=== PATIENT | female | born 1935 | race Caucasian/White ===

== ENCOUNTER 2018-01-25 23:09 | Inpatient (IN) ==
[2018-01-25] MEDS ORDERED: NALOXONE HCL 0.4 MG/ML VIAL IV PRN (23:17)
[2018-01-25] MEDS ORDERED: oxyCODONE HCL 5 MG TABLET PO PRN (23:17)
[2018-01-25] MEDS ORDERED: ONDANSETRON 4 MG/2 ML VIAL IV PRN (23:17)
[2018-01-25] MEDS ORDERED: DEXTROSE 50% 50 ML VIAL IV PRN (23:21)
[2018-01-25] MEDS ORDERED: 0.9 % SODIUM CHLORIDE 1,000 ML IV SCH (23:30)
[2018-01-26] MEDS: HEPARIN 5,000 UNIT/ML VIAL SQ SCH ×3 (00:30→22:30)
[2018-01-26] MEDS: INSULIN LISPRO 1 UNIT/0.01 ML UNIT SQ SCH ×5 (00:30→21:20)
--- NOTE | 2018-01-26 00:36 | Internal Med History&Physical ---
Medical - H&P: HPI Patient information: Note initiated : 01/26/18 at 12:27 am Service Date, if different from initiated Date: [] Patient: Judit Shankar 82 y/o F admitted on 01/25/18 for Fx. Lt hip. Chief Complaint: [] History of present illness: Ms. Shankar is a 82 year old F with history of diabetes, chronic kidney disease stage IV, Parkinson's disease presents to the hospital from [facility] for a mechanical fall. The patient tried to get up out of the chair, noted that the left leg was weak and fell on the left side. She sustained a hip fracture on the left femur. The patient was transported to [facility] for admission and further management. Since his hospital did not have a medical bed. The patient in the hospital accompanied by her . We'll verify the patient's history. The patient denies any chest pain, no palpitations no dizziness before the fall. She denies any fever or chills or urinary symptoms. The patient denies any acute headache, new changes in vision or difficulty in swallowing, changes in hearing, no shortness of breath, no nausea no vomiting no abdominal pain or diarrhea no constipation. She has chronic joint pains from arthritis, no new joint swellings or skin rashes. She denies any psychiatric problems. She does have a history of Parkinson's disease. The patient has a history of diabetes, chronic kidney disease stage IV, she denies any history of heart failure or myocardial infarction, she denies any history of strokes or TIAs (however past medical history in the chart shows that she may have had a stroke) . The patient has poor activity level secondary to arthritis and Parkinson's disease, met score would be around 1-2. the patient will be high risk for surgery, given her poor activity level as well as advanced chronic kidney disease and diabetes. This was reviewed with the patient and her . The patient has not had any lab work done EKG x-ray yet these will be ordered. And reviewed All systems: reviewed and no additional remarkable complaints except as stated ( as per HPI) Medical - H&P: PMH Medical history: Medical History (Last Updated 10/07/17 @ 12:14 by Jie Rodney) Renal stones (Chronic) History of modified radical mastectomy of right breast (Chronic) Left carotid bruit (Chronic) Heart murmur, systolic (Chronic) Osteoarthrosis, generalized, involving multiple sites (Chronic) Claudication (Chronic) Unsteady gait (Chronic) Myalgia (Chronic) Spinal stenosis (Chronic) Adenocarcinoma, breast (Chronic) Osteoporosis (Chronic) Personal history of malignant neoplasm of breast (Chronic) CKD (chronic kidney disease), stage IV (Chronic) 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) Long-term use of aspirin therapy (Chronic) Atypical chest pain (Chronic) Stroke (Chronic) Memory loss (Chronic) Pure hypercholesterolemia, unspecified (Chronic) Primary hyperparathyroidism (Chronic) Parkinson disease (Chronic) Hypothyroidism, iodine (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) Headache (Chronic) ESR raised (Chronic) Hypertensive chronic kidney disease with stage 1 through stage 4 chronic kidney disease, or unspecified chronic kidney disease (Chronic) Surgical history: Past Surgical History (Last Updated 10/07/17 @ 12:14 by Jie Rodney) History of aortic valve replacement (Chronic ~01/2009) History of cholecystectomy (Chronic) History of colonoscopy (Chronic 07/13/13) History of hysterectomy (Chronic) History of left breast biopsy (Chronic) Pertinent family history: Family History (Last Updated 10/07/17 @ 12:20 by Jie Rodney) Mother Heart disease Social history: , lives with her , denies any history of alcohol use denies any history of alcohol or decreased substance use Medical - H&P: Meds Home Medications Medication Instructions Recorded Confirmed Type [employer] Microlet Lancets .ROUTE 10/07/17 10/07/17 History alendronate 70 mg tablet 70 mg PO QWEEK 10/07/17 10/07/17 History aspirin 81 mg tablet,delayed 81 mg PO QDAY 10/07/17 10/07/17 History release blood sugar diagnostic strips See Dose Instructions .ROUTE 10/07/17 10/07/17 History .MEDSUPPLY #20 each carbidopa 25 mg-levodopa 100 mg 1 tab PO TID 10/07/17 10/07/17 History tablet cholecalciferol (vitamin D3) 2,000 2,000 unit PO QDAY tab 10/07/17 10/07/17 History unit tablet coenzyme Q10 400 mg capsule 400 mg PO QDAY cap 10/07/17 10/07/17 History furosemide 20 mg tablet 20 mg PO .QAD tab 10/07/17 10/07/17 History levothyroxine 112 mcg capsule 112 mcg PO QDAY 10/07/17 10/07/17 History lisinopril 40 mg tablet 40 mg PO BID tab 10/07/17 10/07/17 History metformin 500 mg tablet 500 mg PO BID 10/07/17 10/07/17 History metoprolol tartrate 25 mg tablet 25 mg PO BID 10/07/17 10/07/17 History pantoprazole 40 mg tablet,delayed 40 mg PO QDAY 10/07/17 10/07/17 History release polyethylene glycol 3350 17 17 g PO QDAY g 10/07/17 10/07/17 History gram/dose oral powder potassium chloride ER 20 mEq 20 meq PO QDAY 10/07/17 10/07/17 History tablet,extended release(part/cryst) pramipexole 0.125 mg tablet 0.125 mg PO TID 10/07/17 10/07/17 History Allergies Allergy/AdvReac Type Severity Reaction Status Date / Time codeine Allergy Intermediate Rash Unverified 05/03/15 23:49 Medical - H&P: Exam - Constitutional Vitals: Temp Pulse Resp BP Pulse Ox 97.7 F 84 20 146/83 91 01/26/18 00:02 01/26/18 00:02 01/26/18 00:02 01/26/18 00:02 01/26/18 00:02 Exam: GENERAL: The patient is a well-developed, well-nourished in no apparent distress. Is alert and oriented x3. VITAL SIGNS: Reviewed and as noted elsewhere. HEENT: Head is normocephalic and atraumatic. Extraocular muscles are intact. Pupils are equal, round, and reactive to light. Nares appeared normal. Mouth appears any without lesions. Mucous membranes are dry NECK: Normal to inspection, Supple, No lymphadenopathy or thyromegaly. LUNGS: Air entry equal on both sides, no wheezing, crackles or rhonchi noted. No accessory muscles of respiration, anterior exam only HEART: Regular rate and rhythm normal, S1 and S2 heard, no Gallop, S3 or Rub Noted,systolic murmur grade 4 aortic region ABDOMEN: Soft, nontender, and nondistended. Positive bowel sounds. No hepatosplenomegaly was noted. EXTREMITIES: No cyanosis, clubbing, rash, lesions or edema. NEUROLOGIC: Cranial nerves II through XII are grossly intact. Motor and Sensory System Grossly Intact PSYCHIATRIC: Normal affect, Normal Mood. Appropriate Behavior. SKIN: No ulceration or wounds noted, No jaundice, No rash noted. Medical - H&P: Reslt - Labs CBC & Chem 7: 01/26/18 00:08 01/26/18 00:08 Medical - H&P: A/P - Narrative A/P Narrative: A/P left hip fracture-management as per [id number] insulin every 6 hold oral medications Parkinson's disease-resume home medications once verified Chronic kidney disease-patient has stage IV chronic kidney disease on discussing this with the patient it seems that she did not know about this. Get her labs and maintain hydration in the perioperative period. Preoperative evaluation-high risk for perioperative mortality, reviewed with the patient, RCRI score is 3, patient also has poor functional status, no modifiable risk factors yet noted. Hypertension/ hypothyroidism/hyperlipidemia: monitor blood pressure, resume home medications, hold DAMIR inhibitor's and hydrochlorothiazide before surgery. Resume statin, resume Synthroid Heparin for DVT prophylaxis DNR CODE STATUS Nothing by mouth diet Rehabilitation after surgery
[2018-01-26] MEDS ORDERED: HYDROmorphone 2 MG/ML VIAL ONE (00:51)
[2018-01-26] MEDS: HYDROmorphone 2 MG/ML VIAL IV PRN ×2 (00:59→10:16)
[2018-01-26 01:14] LABS: Basophils # (Auto) 0 K/mcL (0.0-0.3); Basophils % (Auto) 0.3 % (0.0-2.0); Eosinophils # (Auto) 0.2 K/mcL (0.0-0.7); Eosinophils % (Auto) 1.6 % (0.0-7.0); Granulocytes % (Auto) 87.2 % (38.0-78.0); Lymphocytes % (Auto) 6.9 % (15.5-49.0); Mean Cell Volume 74.3 fL (80.0-100.0); Mean Corpuscular HGB Conc 30.7 g/dL (31.0-36.0); Mean Corpuscular Hemoglobin 22.8 pg (26.0-34.0); Monocytes # (Auto) 0.6 K/mcL (0.1-0.9); Platelet Count 272 K/mcL (140-440); RBC 4.25 M/mcL (4.00-5.20); Red Cell Distribution Width 16.7 % (11.5-14.5)
[2018-01-26 01:15] LABS: ALT/SGPT < 5 U/l (0-40); Albumin 3.8 gm/dL (3.2-5.2); Albumin/Globulin Ratio 1.5 (1.0-2.3); Alkaline Phosphatase 102 U/L (39-117); Bilirubin,Direct < 0.2 mg/dL (0.0-0.3); Blood Urea Nitrogen 26 mg/dl (8-23); Gamma Glutamyl Transpeptidase 12 U/L (5-36); Uric Acid 8.1 mg/dL (2.5-8.0)
[2018-01-26 02:27] LABS: Appearance,Urine HAZY; Bacteria,Urine 0 /hpf (0); Bilirubin,Urine NEG (NEG); Color,Urine YELLOW; Glucose,Urine (UA) NEGATIVE (NEG); Leukocyte Esterase,Urine NEG /uL (NEG); Mucus,Urine FEW /hpf (0); Protein,Urine NEG (NEG); Specific Gravity,Urine 1.015 (1.000-1.035); Urine Amorphous Crystals FEW /hpf (0); Urine Blood 0.03 mg/dL (<0.03); Urine Hyaline Cast 5 /lpf (0-2); Urine RBC 16 /hpf (0-1); Urine Squamous Epithelial Cell 0 /hpf (0-4); Urine WBC 3 /hpf (0-4); Urobilinogen,Urine NEG (NEG)
[2018-01-26] MEDS ORDERED: IPRATROPIUM/ALBUTEROL 3 ML AMPUL.NEB NEB SCH (03:00)
[2018-01-26 05:26] LABS: Ferritin 20.7 ng/ml (30-400)
[2018-01-26 05:33] LABS: Vitamin B12 237.7 pg/ml (232-1245)
[2018-01-26] MEDS: 0.9 % SODIUM CHLORIDE 10 ML SYRINGE IV SCH ×4 (06:39→22:23)
[2018-01-26] MEDS ORDERED: INSULIN LISPRO 1 UNIT/0.01 ML UNIT SQ ONE (06:42)
--- NOTE | 2018-01-26 06:56 | XRay Report ---
CLINICAL INFORMATION: Preop COMPARISON: 03/25/2009 FINDINGS: Mild cardiomegaly is accentuated by leftward rotation and lordotic positioning. Mediastinum and pulmonary vessels are normal. Lungs are clear. Probable right mastectomy changes IMPRESSION: No acute disease Interpreted and Authenticated by: Korey Rosen 01/26/18
[2018-01-26] MEDS: PANTOPRAZOLE 40 MG TABLET PO SCH (07:48)
[2018-01-26] MEDS: LEVOTHYROXINE SODIUM 112 MCG TABLET PO SCH (07:48)
[2018-01-26] MEDS: ASPIRIN 81 MG TAB.CHEW PO SCH (08:35)
[2018-01-26] MEDS: DOCUSATE SODIUM 100 MG CAPSULE PO SCH ×3 (08:35→22:29)
[2018-01-26] MEDS: POLYETHYLENE GLYCOL 3350 17 GM PACKET PO SCH (08:35)
[2018-01-26] MEDS: UBIDECARENONE 400 MG PO SCH (08:35)
[2018-01-26] MEDS: VITAMIN D3 1,000 UNIT TABLET PO SCH (08:36)
[2018-01-26] MEDS: PRAMIPEXOLE 0.25 MG TABLET PO SCH ×3 (09:00→22:30)
[2018-01-26] MEDS: ESCITALOPRAM 10 MG TABLET PO SCH (09:00)
[2018-01-26] MEDS: CARBIDOPA/LEVODOPA 25/100 TABLET PO SCH ×3 (09:00→22:30)
[2018-01-26] MEDS: FAMOTIDINE/PF 20 MG/2 ML VIAL IV SCH ×2 (09:01→22:22)
[2018-01-26] MEDS: METOPROLOL TARTRATE 25 MG TABLET PO SCH ×2 (09:08→22:30)
[2018-01-26] MEDS ORDERED: ceFAZolin 1 GM VIAL ONE (17:25)
[2018-01-26] MEDS ORDERED: ceFAZolin 1 GM VIAL IV SCH (17:30)
[2018-01-26] MEDS ORDERED: fentaNYL 100 MCG/2 ML VIAL IV ONE (18:00)
[2018-01-26] MEDS ORDERED: ONDANSETRON 4 MG/2 ML VIAL IV ONE (18:00)
[2018-01-26] MEDS ORDERED: TRANEXAMIC ACID 1,000 MG/10 ML VIAL IV ONE (18:00)
[2018-01-26] MEDS ORDERED: PROPOFOL 200 MG/20 ML VIAL IV ONE (18:00)
[2018-01-26] MEDS ORDERED: KETAMINE 100 MG/ML ML IV ONE (18:00)
[2018-01-26] MEDS ORDERED: DEXAMETHASONE 10 MG/ML VIAL IV ONE (18:00)
[2018-01-26] MEDS ORDERED: GLYCOPYRROLATE 0.2 MG/ML VIAL IV ONE (18:00)
[2018-01-26] MEDS ORDERED: MIDAZOLAM 2 MG/2 ML VIAL IV ONE (18:00)
[2018-01-26] MEDS ORDERED: LIDOCAINE HCL/PF 100 MG/5 ML SYRINGE IV ONE (18:00)
[2018-01-26] MEDS ORDERED: ePHEDrine 50 MG/ML AMPUL IV ONE (18:00)
[2018-01-26] MEDS ORDERED: PHENYLEPHRINE 10 MG/ML VIAL IV ONE (18:00)
[2018-01-26] MEDS ORDERED: BENZOCAINE/MENTHOL 1 LOZENGE PO PRN ×2 (18:43→19:05)
[2018-01-26] MEDS ORDERED: ACETAMINOPHEN 1,000 MG/100 ML BOTTLE IV ONE (18:43)
[2018-01-26] MEDS ORDERED: ONDANSETRON 4 MG/2 ML VIAL IV PRN (18:43)
[2018-01-26] MEDS ORDERED: IPRATROPIUM/ALBUTEROL 3 ML AMPUL.NEB NEB PRN (18:43)
[2018-01-26] MEDS ORDERED: LACTATED RINGERS 250 ML IV PRN (18:43)
[2018-01-26] MEDS ORDERED: MEPERIDINE 25 MG/ML SYRINGE IV PRN (18:43)
[2018-01-26] MEDS ORDERED: METHOCARBAMOL 1,000 MG/10 ML VIAL IV PRN (18:43)
[2018-01-26] MEDS ORDERED: FLUMAZENIL 0.1 MG/ML ML IV PRN (18:43)
[2018-01-26] MEDS ORDERED: fentaNYL 100 MCG/2 ML VIAL IV PRN (18:43)
[2018-01-26] MEDS ORDERED: LACTATED RINGERS 1,000 ML IV SCH ×2 (18:45→19:15)
--- NOTE | 2018-01-26 19:03 | Brief Operative Note ---
Date of procedure: 01/26/18 Pre-op diagnosis: Left midcervical femoral neck fracture Post-op diagnosis: same Procedure: Left hip hemiarthroplasty Grafts/Implants: Yes (Depuy 6 summit basic stem, 0 neck, 46 head) Anesthesia: spinal, GLMA Findings: displaced femoral neck fracture Complications: none Surgeon: Jose Motta Telesales Manager: Dario Kat Estimated blood loss (cc): 200 Specimens Removed/Pathology: none sent Condition: stable Disposition: PACU
[2018-01-26] MEDS ORDERED: BISACODYL 10 MG SUPP.RECT PR PRN (19:05)
[2018-01-26] MEDS ORDERED: FLEETS ADULT ENEMA PR PRN (19:05)
[2018-01-26] MEDS ORDERED: MAGNESIUM HYDROXIDE 30 ML ORAL.SUSP PO PRN (19:05)
[2018-01-26] MEDS ORDERED: POLYETHYLENE GLYCOL 3350 17 GM PACKET PO PRN (19:05)
[2018-01-26] MEDS ORDERED: WARFARIN 5 MG TABLET PO SCH (20:00)
[2018-01-26] MEDS: SENNOSIDES 1 TABLET PO SCH (22:30)
[2018-01-27] MEDS: INSULIN LISPRO 1 UNIT/0.01 ML UNIT SQ SCH ×5 (00:43→22:04)
[2018-01-27] MEDS: ceFAZolin 1 GM VIAL IV SCH ×2 (02:07→09:30)
[2018-01-27] MEDS: 0.9 % SODIUM CHLORIDE 10 ML SYRINGE IV SCH ×2 (04:54→14:16)
[2018-01-27] MEDS: PANTOPRAZOLE 40 MG TABLET PO SCH (07:17)
[2018-01-27] MEDS: LEVOTHYROXINE SODIUM 112 MCG TABLET PO SCH (07:17)
--- NOTE | 2018-01-27 07:21 | XRay Report ---
CLINICAL INFORMATION: Postop COMPARISON: None. FINDINGS: Hip prostheses in anatomic alignment. No osseous abnormality. Both SI and right hip joints show mild degeneration. Soft tissue swelling of the surgical site IMPRESSION: Negative Interpreted and Authenticated by: Korey Rosen 01/27/18
--- NOTE | 2018-01-27 09:02 | Operative Note ---
DATE OF OPERATION: 01/26/2018 PREOPERATIVE DIAGNOSIS: Left displaced midcervical femoral neck fracture. POSTOPERATIVE DIAGNOSIS: Left displaced midcervical femoral neck fracture. PROCEDURE PERFORMED: Left hip hemiarthroplasty with the DePuy Iron size 6 press-fit stem, a standard 0 neck and a 46 mm femoral head. SURGEON: Jose Motta M.D. FIRE SAFETY INSPECTOR: Thom Kat PA-C. ANESTHESIA: Spinal plus general. DRAINS: None. SPECIMENS: Femoral head which was discarded. BLOOD LOSS: 250 mL. POSTOPERATIVE CONDITION: Stable. INDICATIONS FOR SURGERY: This is an 82-year-old female who has dementia who fell and injured her left hip. Radiographs showed displaced midcervical femoral neck fracture. FINDINGS AT SURGERY: As above. Post implantation showed stable hip. PROCEDURE IN DETAIL: The patient had been seen preoperatively along with her . Informed consent was obtained after discussion of risks and benefits of surgery. Risks including, but not limited to, bleeding, possibly requiring transfusion; infection, possibly requiring implant removal and prolonged IV antibiotics; injury to nerves, blood vessels other surrounding structures; anesthetic risks; incomplete or no resolution of pain; possibility of needing further surgery. They understood and wished to proceed. The correct operative site was marked and then patient received spinal anesthesia. The patient was then taken to the operating room and carefully positioned in the right lateral decubitus position and pressure points carefully padded. Left hip and groin were then carefully prepped and draped in normal sterile fashion, and a time-out was performed verifying patient name, operative site, and plan. Ioban was used to cover all skin surfaces. A standard posterior approach incision was made with a scalpel through skin and subcutaneous tissue. Hemostasis was obtained with Bovie cautery. We continued sharp dissection down onto the IT band. This was incised with Bovie in line with the incision. We then started releasing short external rotators off of the posterior femur. The patient was obese which made exposure difficult. We then made our capsular incision, identified the fracture. We did a freshening cut on the neck with the saw. We then used a corkscrew to remove the femoral head. It did not fit through a 46, but did fit through a 47, so we trialed a 46 which fit well. We then exposed the proximal femur. Box osteotome and then a hand awl were used to identify canal trajectory. A lateralizing rasp was used to lateralize and then we began sequentially broaching up to a size 6. We trialled with a -3. The hip reduced easily. However, it also was unstable, so we dislocated and went up to a 0. This had much better stability, so we dislocated. The implants were opened. We irrigated the femoral canal with Irrisept, after a minute pulse lavaged with saline and then impacted the stem, and then the head was impacted onto the stem. Hip was reduced, verified to have satisfactory stability. We then irrigated with Irrisept, after a minute pulse lavaged with saline, and then a #2 Ethibond was used to close our capsule stitch with a [id number]. We then closed the IT band with #1 Vicryl, two running stitches. Final Irrisept irrigation, after a minute final pulse lavage, and then 2-0 Monocryl for subcutaneous and camryn for skin. Xeroform and sterile dressing were applied. She was placed in an abductor wedge, awakened, extubated, and transferred to recovery in stable condition. AFUA:mariann Job ID: [id number] Doc ID: [id number] Jose Motta MD
[2018-01-27] MEDS: FAMOTIDINE/PF 20 MG/2 ML VIAL IV SCH (09:23)
[2018-01-27] MEDS: POLYETHYLENE GLYCOL 3350 17 GM PACKET PO SCH (09:23)
[2018-01-27] MEDS: METOPROLOL TARTRATE 25 MG TABLET PO SCH ×2 (09:24→22:03)
[2018-01-27] MEDS: VITAMIN D3 1,000 UNIT TABLET PO SCH (09:24)
[2018-01-27] MEDS: PRAMIPEXOLE 0.25 MG TABLET PO SCH ×3 (09:24→22:04)
[2018-01-27] MEDS: HEPARIN 5,000 UNIT/ML VIAL SQ SCH ×2 (09:24→22:04)
[2018-01-27] MEDS: ESCITALOPRAM 10 MG TABLET PO SCH (09:24)
[2018-01-27] MEDS: CARBIDOPA/LEVODOPA 25/100 TABLET PO SCH ×3 (09:24→22:04)
[2018-01-27] MEDS: DOCUSATE SODIUM 100 MG CAPSULE PO SCH ×4 (09:24→22:03)
[2018-01-27] MEDS: ASPIRIN 81 MG TAB.CHEW PO SCH (09:25)
[2018-01-27] MEDS: UBIDECARENONE 400 MG PO SCH (09:27)
[2018-01-27] MEDS: ACETAMINOPHEN 325 MG TABLET PO PRN ×2 (12:42→22:04)
[2018-01-27] MEDS ORDERED: WARFARIN 5 MG TABLET PO SCH (14:00)
--- NOTE | 2018-01-27 14:17 | Orthopedic Progress Note ---
Orthopedics - Auxillary Note - Subjective Patient Information: Note initiated : 01/27/18 at 2:16 pm Service Date, if different from initiated Date: [] Patient: Judit Shankar 82 y/o F admitted on 01/25/18 for Left Hip Fracture. Chief Complaint: c/o weakness and tired. bandages c/d/i nvi-distal Vital Signs Temp Pulse Resp BP Pulse Ox 01/27/18 12:00 98.3 F 20 183/88 90 01/27/18 07:31 97.6 F 18 128/73 91 01/27/18 03:25 98.6 F 89 18 148/74 95 01/26/18 23:22 99.0 F H 91 H 18 135/78 95 01/26/18 22:25 97 01/26/18 22:20 99 01/26/18 22:08 97 01/26/18 21:52 89 142/73 94 01/26/18 21:22 88 135/82 93 01/26/18 21:07 89 129/75 97 01/26/18 20:52 88 130/64 96 01/26/18 20:37 98.5 F 89 20 125/64 94 01/26/18 20:26 98.1 F 89 18 131/78 92 01/26/18 20:17 92 H 16 117/67 92 01/26/18 20:10 98.1 F 91 H 20 118/60 87 L 01/26/18 20:07 88 18 120/62 92 01/26/18 20:02 87 17 119/58 92 01/26/18 19:57 90 17 104/76 93 01/26/18 19:52 89 16 105/60 95 01/26/18 19:47 90 21 111/55 95 01/26/18 19:42 88 15 122/51 95 01/26/18 19:37 88 15 137/92 95 01/26/18 19:32 97.5 F 85 15 138/94 95 01/26/18 17:35 90 120/80 95 01/26/18 17:27 88 127/82 93 01/26/18 17:12 77 125/79 96 01/26/18 16:57 77 121/78 96 01/26/18 16:43 85 134/80 96 01/26/18 16:28 80 118/76 94 01/26/18 16:12 100 H 128/79 94 01/26/18 15:54 99.3 F H 18 157/80 91 Intake and Output 01/27/18 01/27/18 01/27/18 05:59 13:59 21:59 Intake Total 100 / 100 200 / 200 Output Total 200 / 200 Balance -100 / -100 200 / 200 Intake: Oral 100 / 100 200 / 200 Output: Urine Catheter Amount 200 / 200 Other: Meal Breakfast Percent of Meal Consumed 50% Feeding Ability Assist with Tray Set Up Laboratory Results - last 24 hr 01/27/18 01/27/18 04:38 04:38 Hgb 9.1 L Hct 28.4 L PT 13.9 INR 1.1 s/p L davion hip arthroplasty-stable mobilize with PT
--- NOTE | 2018-01-27 16:15 | Internal Med Progress Note ---
Medical - PN: Subj Patient information: Note initiated : 01/27/18 at 4:11 pm Service Date, if different from initiated Date: [] Patient: Judit Shankar 82 y/o F admitted on 01/25/18 for Left Hip Fracture. Chief Complaint: L hip pain Interval history: 01/26: Ms. Shankar is a 82 year old F with history of diabetes, chronic kidney disease stage IV, Parkinson's disease presents to the hospital from [facility] for a mechanical fall. The patient tried to get up out of the chair, noted that the left leg was weak and fell on the left side. She sustained a hip fracture on the left femur. The patient was transported to [facility] for admission and further management. Since his hospital did not have a medical bed. The patient in the hospital accompanied by her . We'll verify the patient's history. The patient denies any chest pain, no palpitations no dizziness before the fall. She denies any fever or chills or urinary symptoms. The patient denies any acute headache, new changes in vision or difficulty in swallowing, changes in hearing, no shortness of breath, no nausea no vomiting no abdominal pain or diarrhea no constipation. She has chronic joint pains from arthritis, no new joint swellings or skin rashes. She denies any psychiatric problems. She does have a history of Parkinson's disease. D: L midcervical femoral neck fracture Procedure: L Hip arthroplasty. Well tolerated. 01/27: Uneventful night. Still tired and sleepy. Pain: 'tolerable'. - Constitutional Vitals: Vital Signs Temp Pulse Resp BP Pulse Ox 96.4 F L 89 20 167/78 93 01/27/18 15:55 01/27/18 03:25 01/27/18 15:55 01/27/18 15:55 01/27/18 15:55 Period Temp Pulse Resp BP Sys/Harris Pulse Ox Last 24 Hr 96.4 F-99.0 F 77-100 15-21 104-183/51-94 87-99 Intake and Output 01/27/18 01/27/18 01/27/18 05:59 13:59 21:59 Intake Total 100 / 100 200 / 200 Output Total 200 / 200 Balance -100 / -100 200 / 200 Intake & Output: Intake & Output 01/27/18 01/27/1818 05:59 13:59 21:59 Intake Total 100 / 100 200 / 200 Output Total 200 / 200 Balance -100 / -100 200 / 200 Intake: Oral 100 / 100 200 / 200 Output: Urine Catheter Amount 200 / 200 Other: Meal Breakfast Percent of Meal Consumed 50% Feeding Ability Assist with Tray Set Up General appearance: no acute distress - Respiratory Respiratory exam: Present: normal respiratory exam - Cardiovascular Cardiovascular exam: Present: normal rate and rhythm - GI/Abdominal GI/Abdominal exam: Present: normal bowel sounds, soft - Extremities Exam Extremities exam: Absent: calf tenderness Medical - PN: Obj Da - Labs CBC & Chem 7: 01/27/18 04:38 01/26/18 00:08 Labs: Abnormal Lab Results 01/27/18 01/26/18 01/26/18 04:38 01:37 00:08 WBC Hgb 9.1 L Hct 28.4 L MCV MCH MCHC RDW Gran % Lymph % (Auto) Gran # Lymph # (Auto) Carbon Dioxide BUN Creatinine Glucose Uric Acid Calcium Iron 19 L TIBC 450 H Unsat Iron Binding 431 H Transferrin % Sat 4 L Ferritin 20.7 L Triglycerides Urine Ketones 5/tr A Urine Occult Blood 0.03 A Urine RBC 16 H Amorphous Crystals Few A Hyaline Casts 5 H 01/26/18 01/26/18 00:08 00:08 WBC 13.9 H Hgb 9.7 L Hct 31.6 L MCV 74.3 L MCH 22.8 L MCHC 30.7 L RDW 16.7 H Gran % 87.2 H Lymph % (Auto) 6.9 L Gran # 12.1 H Lymph # (Auto) 1.0 L Carbon Dioxide 21 L BUN 26 H Creatinine 1.4 H Glucose 188 H Uric Acid 8.1 H Calcium 11.1 H Iron TIBC Unsat Iron Binding Transferrin % Sat Ferritin Triglycerides 218 H Urine Ketones Urine Occult Blood Urine RBC Amorphous Crystals Hyaline Casts Meds: Medications Acetaminophen (Tylenol) 650 mg PO Q6HP PRN PRN Reason: PAIN/FEVER > 101 Last Admin: 01/27/18 12:42 Dose: 650 mg Aspirin (Aspirin) 81 mg PO DAILY CHRIS Last Admin: 01/27/18 09:25 Dose: 81 mg Bisacodyl (Dulcolax) 10 mg MA Q2-3DAYS PRN PRN Reason: Constipation Carbidopa/Levodopa (Sinemet 25/100) 1 tab PO TID [facility] Last Admin: 01/27/18 14:18 Dose: 1 tab Dextrose (Dextrose 50%) 0 ml IV UD PRN PRN Reason: Hypoglycemia Diagnostic Test (Pha) (Accu-Chek) 1 each FS ACHS [facility] Last Admin: 01/27/18 12:44 Dose: 1 each Docusate Sodium (Colace) 100 mg PO BID [facility] Last Admin: 01/27/18 09:24 Dose: 100 mg Docusate Sodium (Colace) 100 mg PO BID [facility] Last Admin: 01/27/18 09:27 Dose: Not Given Escitalopram Oxalate (Lexapro) 10 mg PO DAILY [facility] Last Admin: 01/27/18 09:24 Dose: 10 mg Famotidine (Pepcid) 20 mg IV Q12 [facility] Last Admin: 01/27/18 09:23 Dose: 20 mg Heparin Sodium (Porcine) (Heparin) 5,000 unit SQ Q12 [facility] Last Admin: 01/27/18 09:24 Dose: 5,000 unit Hydromorphone HCl (Dilaudid) 0.5 mg IV Q2HP PRN PRN Reason: PAIN LEVEL > 6 Last Admin: 01/26/18 10:16 Dose: 0.5 mg Insulin Human Lispro (Humalog) 0 unit SQ Q6 [facility] PRN Reason: Protocol Last Admin: 01/27/18 12:44 Dose: Not Given Levothyroxine Sodium (Synthroid) 112 mcg PO QAMAC [facility] Last Admin: 01/27/18 07:17 Dose: 112 mcg Magnesium Hydroxide (Milk Of Magnesia) 30 ml PO BIDP PRN PRN Reason: Constipation Metoprolol Tartrate (Lopressor) 50 mg PO BID [facility] Last Admin: 01/27/18 09:24 Dose: 50 mg Naloxone HCl (Narcan) 0.1 mg IV Q2MIN PRN PRN Reason: Opiate Reversal Ondansetron HCl (Zofran) 4 mg IV Q6HP PRN PRN Reason: Nausea And Vomiting Oxycodone HCl (Roxicodone) 5 mg PO Q4HP PRN PRN Reason: PAIN LEVEL 3-6 Pantoprazole Sodium (Protonix) 40 mg PO QAMAC [facility] Last Admin: 01/27/18 07:17 Dose: 40 mg Ubidecarenone [Co Q- (10] 400 Mg Tab) 1 dose PO QDAY [facility] Last Admin: 01/27/18 09:27 Dose: Not Given Polyethylene Glycol (Miralax) 17 gm PO DAILY [facility] Last Admin: 01/27/18 09:23 Dose: 17 gm Polyethylene Glycol (Miralax) 17 gm PO DAILYP PRN PRN Reason: Constipation Pramipexole Dihydrochloride (Mirapex) 0.125 mg PO TID [facility] Last Admin: 01/27/18 14:18 Dose: 0.125 mg Senna (Senokot) 2 tab PO HS [facility] Last Admin: 01/26/18 22:30 Dose: Not Given Sodium Biphosphate/Sodium Phosphate (Fleets Adult) 1 dose MA Q3-4DAYS PRN PRN Reason: Constipation Sodium Chloride (Saline Flush) 10 ml IV Q8 [facility] Last Admin: 01/27/18 14:16 Dose: 10 ml Throat Lozenges (Cepacol) 1 lozenge PO PRN PRN PRN Reason: Sore Throat Vitamin D (Vitamin D3) 2,000 unit PO DAILY [facility] Last Admin: 01/27/18 09:24 Dose: 2,000 unit Warfarin Sodium (Coumadin Per Pharmacy) 1 order PO UD [facility] Warfarin Sodium (Coumadin) 5 mg PO DAILY@1400 [facility] Last Admin: 01/27/18 14:16 Dose: 5 mg Medical - PN: A/P - Time Spent With Patient Total time spent is greater than 50% in coordination of care (as documented) at patient's floor/unit and/or counseling patient: less than 15 minutes - Narrative A/P Narrative: left hip fracture following fall. S/P L hip arthroplasty 01/[address] Motta. Hedhaenc-psgzzyn-ejnhf insulin ACHS Parkinson's disease-resume home medications once verified Chronic kidney disease-patient has stage IV chronic kidney disease. Hypertension/ hypothyroidism/hyperlipidemia: monitor blood pressure, resume home medications, hold hydrochlorothiazide Resume statin and Synthroid. DVT prophylaxis: per Ortho service Medical - PN: Qual - VTE Deep Vein Thrombosis/Pulmonary Embolism Present on Admission: No
[2018-01-27] MEDS: metFORMIN 500 MG TABLET PO SCH (17:10)
[2018-01-27] MEDS ORDERED: LISINOPRIL 20 MG TABLET PO SCH (21:00)
[2018-01-27] MEDS: SENNOSIDES 1 TABLET PO SCH (22:03)
[2018-01-28] MEDS: 0.9 % SODIUM CHLORIDE 10 ML SYRINGE IV SCH ×2 (00:16→05:05)
[2018-01-28] MEDS: ACETAMINOPHEN 325 MG TABLET PO PRN (05:04)
[2018-01-28] MEDS: INSULIN LISPRO 1 UNIT/0.01 ML UNIT SQ SCH ×2 (07:33→12:50)
[2018-01-28] MEDS: LEVOTHYROXINE SODIUM 112 MCG TABLET PO SCH (07:34)
[2018-01-28] MEDS: PANTOPRAZOLE 40 MG TABLET PO SCH (07:34)
--- NOTE | 2018-01-28 07:44 | Orthopedic Progress Note ---
Orthopedics - Auxillary Note - Subjective Patient Information: Note initiated : 01/28/18 at 7:42 am Service Date, if different from initiated Date: [] Patient: Judit Shankar 82 y/o F admitted on 01/25/18 for Left Hip Fracture. Chief Complaint: Pt reports mild to moderate pain. somnolent on exam. bandages c/d/i nvi-distal Vital Signs Temp Pulse Resp BP Pulse Ox 01/28/18 04:00 98.0 F 76 20 154/94 94 01/28/18 00:00 98.3 F 76 16 153/89 96 01/27/18 20:00 98.6 F 83 18 189/75 91 01/27/18 15:55 96.4 F L 20 167/78 93 01/27/18 12:00 98.3 F 20 183/88 90 Intake and Output 01/27/18 01/28/18 01/28/18 21:59 05:59 13:59 Intake Total 180 / 180 225 / 225 Output Total 550 / 550 325 / 325 Balance -370 / -370 -100 / -100 Intake: Oral 180 / 180 225 / 225 Output: Urine Catheter Amount 550 / 550 325 / 325 Other: Weight 202 lb Laboratory Results - last 24 hr 01/28/18 04:53 Hgb 8.3 L Hct 26.3 L s/p L davion hip arthroplasty-stable mobilize with PT discharge per hospitalist. f/u at [facility] 10-14 days, weight bear as tolerated.
[2018-01-28] MEDS: metFORMIN 500 MG TABLET PO SCH (09:14)
--- NOTE | 2018-01-28 09:40 | Discharge Summary ---
Medical - DS: Prov Patient information: Note initiated : 01/28/18 at 9:29 am Service Date, if different from initiated Date: [] Patient: Judit Shankar 82 y/o F admitted on 01/25/18 for Left Hip Fracture. Date of admission: 01/25/18 23:57 Discharge date: 01/28/18 Primary care physician: Demetria Mckeon Consults: 01/25/18 23:17 Consult to Physician [CONS] Routine Comment: hip fracture Consulting Provider: Jose Motta Reason For Exam: Physician to Consult Medical - DS: Meds - Discharge Medications Active and Home Medications: Home Medications alendronate 70 mg tablet 70 mg PO SA 10/07/17 [History Confirmed 01/26/18 Last Taken 01/23/18 08:00] aspirin 81 mg tablet,delayed release 81 mg PO QDAY 10/07/17 [History Confirmed 01/26/18 Last Taken 01/25/18 08:00] blood sugar diagnostic strips See Dose Instructions SQ DAILY #20 each 10/07/17 [ History Confirmed 01/26/18 Last Taken 01/25/18 08:00] carbidopa 25 mg-levodopa 100 mg tablet 1 tab PO TID 10/07/17 [History Confirmed 01/26/18 Last Taken 01/25/18 12:00] cholecalciferol (vitamin D3) 2,000 unit tablet 2,000 unit PO QDAY tab 10/07/17 [History Confirmed 01/26/18 Last Taken 01/25/18 08:00] coenzyme Q10 400 mg capsule 400 mg PO QDAY cap 10/07/17 [History Confirmed Last Taken 01/25/18 08:00] furosemide 20 mg tablet 20 mg PO .QOD tab 10/07/17 [History Confirmed 01/26/18 Last Taken 01/25/18 08:00] levothyroxine 112 mcg capsule 112 mcg PO QDAY 10/07/17 [History Confirmed Last Taken 01/25/18 08:00] lisinopril 40 mg tablet 40 mg PO BID tab 10/07/17 [History Confirmed 01/26/18 Last Taken 01/25/18 08:00] metformin 500 mg tablet 500 mg PO BID 10/07/17 [History Confirmed 01/26/18 Last Taken 01/25/18 08:00] metoprolol tartrate 25 mg tablet 50 mg PO BID 10/07/17 [History Confirmed Last Taken 01/25/18 08:00] pantoprazole 40 mg tablet,delayed release 40 mg PO QDAY 10/07/17 [History Confirmed 01/26/18 Last Taken 01/25/18 08:00] polyethylene glycol 3350 17 gram/dose oral powder 17 g PO QDAY g 10/07/17 [ History Confirmed 01/26/18 Last Taken 01/25/18 08:00] potassium chloride ER 20 mEq tablet,extended release(part/cryst) 20 meq PO QDAY 10/07/17 [History Confirmed 01/26/18 Last Taken 01/25/18 08:00] pramipexole 0.125 mg tablet 0.125 mg PO BID 10/07/17 [History Confirmed Last Taken 01/25/18 08:00] Escitalopram [Lexapro] 10 mg PO DAILY 01/26/18 [History Confirmed 01/26/18 Last Taken 01/25/18 08:00] NIFEdipine [Adalat cc] 60 mg PO BID 01/26/18 [History Confirmed 01/26/18 Last Taken 01/25/18 08:00] Medical - DS: Hosp Hospital course: Admitted 01/26: Ms. Shankar is a 82 year old F with history of diabetes, chronic kidney disease stage IV, Parkinson's disease presents to the hospital from [facility] for a mechanical fall. The patient tried to get up out of the chair, noted that the left leg was weak and fell on the left side. She sustained a hip fracture on the left femur. The patient was transported to [facility] for admission and further management. Since his hospital did not have a medical bed. The patient in the hospital accompanied by her . We'll verify the patient's history. The patient denies any chest pain, no palpitations no dizziness before the fall. She denies any fever or chills or urinary symptoms. The patient denies any acute headache, new changes in vision or difficulty in swallowing, changes in hearing, no shortness of breath, no nausea no vomiting no abdominal pain or diarrhea no constipation. She has chronic joint pains from arthritis, no new joint swellings or skin rashes. She denies any psychiatric problems. She does have a history of Parkinson's disease. D: L midcervical femoral neck fracture Procedure: L Hip arthroplasty. Well tolerated. 01/27: Uneventful night. Still tired and sleepy. Pain: 'tolerable' 01/28: Patient is doing fairly well. Still somewhat more sleepy than usual. Acetaminophen for pain control. Patient will be discharged to [facility] for further care and rehab. Discharge diagnosis: Left Femoral Neck fracture, Fall Secondary discharge diagnosis: Type 2 DM, Chronic Kidney disease, Parkinson's disease, HTN Reason for admission: Pain L hip following mechanical fall Pertinent studies/significant findings: X-hip: Left midcervical femoral neck fracture Complications: None - Time Spent with Patient Total time spent providing and/or coordinating discharge services: Less than 30 minutes Medical - DS: Exam - Constitutional Vitals: Vital Signs Temp Pulse Pulse Resp BP Pulse Ox 01/28/18 08:35 80 95 01/28/18 08:00 97 01/28/18 07:50 98.4 F 18 165/83 95 01/28/18 04:00 98.0 F 76 20 154/94 94 01/28/18 00:00 98.3 F 76 16 153/89 96 01/27/18 20:00 98.6 F 83 18 189/75 91 01/27/18 15:55 96.4 F L 20 167/78 93 01/27/18 12:00 98.3 F 20 183/88 90 Intake and Output 01/27/18 01/28/18 01/28/18 21:59 05:59 13:59 Intake Total 180 / 180 225 / 225 Output Total 550 / 550 325 / 325 Balance -370 / -370 -100 / -100 Intake: Oral 180 / 180 225 / 225 Output: Urine Catheter Amount 550 / 550 325 / 325 Other: Weight 202 lb General appearance: no acute distress - Respiratory Respiratory exam: Present: normal respiratory exam - Cardiovascular Cardiovascular exam: Present: normal rate and rhythm - GI/Abdominal GI/Abdominal exam: Present: normal bowel sounds, soft - Extremities Exam Additional comments: L hip dressing intact Medical - DS: Data Procedures and tests throughout hospitalization: Date of procedure: 01/26/18 Pre-op diagnosis: Left midcervical femoral neck fracture Post-op diagnosis: same Procedure: Left hip hemiarthroplasty Grafts/Implants: Yes (Depuy 6 summit basic stem, 0 neck, 46 head) Anesthesia: spinal, GLMA Findings: displaced femoral neck fracture Complications: none Surgeon: Jose Motta Infection Control Coordinator: Dario Kat Estimated blood loss (cc): 200 Surgeon: Jose Motta MD Labs on day of discharge: Labs from last 24 hours 01/28/18 01/28/18 04:53 04:53 Hgb 8.3 L Hct 26.3 L PT 14.5 INR 1.1 Medical - DS: A/P - Patient/Caregiver Discharge Instructions Activity: as per physical therapy, increase activity as tolerated Diet: Consistent Carbohydrate Additional Instructions: Discharge Instructions: Do the exercises at home that physical therapy gave you. Take your prescription, photo ID, insurance cards, and current medication list with you to your first physical therapy appointment. Take your prescription to filler picker any medication or equipment (such as walker, crutches, toilet riser or C.P.M.) Wear comfortable clothing for your physical therapy. Weight bearing as tolerated. Total hip precautions. (see enclosed information) You have the Aquacel Ag dressing, leave in place for 7 days then remove. If dressing becomes soiled (turns black), remove and use gauze 4x4 dressing and silvasorb ointment and change daily. Keep incision clean and dry. To avoid constipation while taking any narcotic pain medication, take an over the counter stool softener/laxative. Use ice packs as directed, on for 20 minutes at a time throughout the day. This and elevation will help with pain and swelling. Call your physician for fevers above 100.5 or pain not controlled by medication. INR on Thursday 02/01 then weekly x 3 weeks, Results to Dr Motta. Other Amb Orders: Prothrombin Time INR Location: Determined By Patient - Follow up Plan Follow up with: Jose Motta MD [Physician] - (call/schedule 10-14 day surgical follow up with Dr. Motta.) Disposition: Xfer SNF Prognosis: Fair Rehab Potential: Fair I certify that the patient requires SNF services: Yes Overall status at discharge: patient is progressing back to baseline Medical - DS: Qual - VTE Deep Vein Thrombosis/Pulmonary Embolism Present on Admission: No
[2018-01-28] MEDS: VITAMIN D3 1,000 UNIT TABLET PO SCH (09:55)
[2018-01-28] MEDS: DOCUSATE SODIUM 100 MG CAPSULE PO SCH ×2 (09:56→10:00)
[2018-01-28] MEDS: CARBIDOPA/LEVODOPA 25/100 TABLET PO SCH (09:56)
[2018-01-28] MEDS: METOPROLOL TARTRATE 25 MG TABLET PO SCH (09:56)
[2018-01-28] MEDS: ESCITALOPRAM 10 MG TABLET PO SCH (09:56)
[2018-01-28] MEDS: HEPARIN 5,000 UNIT/ML VIAL SQ SCH (09:57)
[2018-01-28] MEDS: PRAMIPEXOLE 0.25 MG TABLET PO SCH (09:57)
[2018-01-28] MEDS: POLYETHYLENE GLYCOL 3350 17 GM PACKET PO SCH (09:57)
[2018-01-28] MEDS: UBIDECARENONE 400 MG PO SCH (09:58)
--- NOTE | 2018-02-05 11:23 | Consultation ---
DATE OF CONSULTATION: 01/26/2018 REASON FOR CONSULTATION: Left hip fracture. HISTORY: This is an 82-year-old female who has sustained a fall. She had lost her balance getting up out of a chair and is unable to bear weight after she fell. At the time of my assessment she was not accompanied by any family members and was not able to provide a whole lot more history. PAST MEDICAL HISTORY: Her past medical history is extensive, including Parkinson's disease, type 2 diabetes, chronic kidney disease, history of breast cancer, and stroke. PAST SURGICAL HISTORY: Radical mastectomy of the right breast. She also had aortic valve replacement, cholecystectomy, hysterectomy. MEDICATIONS: 1. Pramipexole. 2. Pantoprazole. 3. Metoprolol. 4. Metformin. 5. Lisinopril. 6. Furosemide. 7. Levothyroxine. 8. Carbidopa/levodopa. 9. Aspirin. 10. Alendronate. 11. Potassium chloride. 12. Polyethylene glycol. ALLERGIES: CODEINE. SOCIAL HISTORY: She lives with her . No alcohol or tobacco use. FAMILY HISTORY: Mother had heart disease. REVIEW OF SYSTEMS: Negative for current chest pain, shortness of breath, fever, chills, bloody stool or urine. PHYSICAL EXAMINATION: GENERAL: She appears stated age in no acute distress. She is oriented to person. PSYCH: Mood and affect: She is a little bit groggy. I think she has had medication. EXTREMITIES: Her bilateral upper extremities show no evidence of injury and are normal to inspection, range of motion, stability and strength. Right lower extremity shows no evidence of injury and are normal to inspection, range of motion, stability and strength. Left hip shows shortening and external rotation with tenderness to palpation over the proximal femur. She has limited range of motion secondary to pain. There is gross instability at the fracture site. Her strength is decreased secondary to pain. IMAGING: X-rays reviewed show a displaced femoral neck fracture. IMPRESSION: Left displaced midcervical closed femoral neck fracture in an 82-year-old female who was previously ambulatory. PLAN: I recommend proceeding with open treatment of the left midcervical femoral neck fracture with prosthetic hemiarthroplasty. Risks discussed include, but not limited to, bleeding, possibly requiring transfusion; infection, possibly requiring implant removal and prolonged IV antibiotics; injury to nerves, blood vessels other surrounding structures; anesthetic risks; dislocation; fracture; DVT and pulmonary embolus risks; the possibility of needing further surgery. She appears to understand these and wished to proceed. BJB:mariann Job ID: [id number] Doc ID: [id number] Jose Motta MD
== END 2018-01-28 13:30 | DRG 470 ==
LOC: MEDSUR 23:57
PROVIDERS: ADMIT Internal Medicine; ATTEND Specialist
PROC: HEMIHIP (2018-01-26 17:58)

== ENCOUNTER 2018-12-25 17:34 | Inpatient (IN) ==
[2018-12-25 18:13] LABS: Basophils # (Auto) 0 K/mcL (0.0-0.3); Basophils % (Auto) 0.4 % (0.0-2.0); Eosinophils # (Auto) 0.8 K/mcL (0.0-0.7); Eosinophils % (Auto) 8.7 % (0.0-7.0); Granulocytes % (Auto) 67.6 % (38.0-78.0); Lymphocytes # (Auto) 1.5 K/mcL (1.5-4.8); Lymphocytes % (Auto) 17.2 % (15.5-49.0); Mean Cell Volume 87.5 fL (80.0-100.0); Mean Corpuscular HGB Conc 32.4 g/dL (31.0-36.0); Monocytes # (Auto) 0.5 K/mcL (0.1-0.9); Monocytes % (Auto) 6.1 % (1.0-12.0); Platelet Count 224 K/mcL (140-440); Red Cell Distribution Width 16.5 % (11.5-14.5)
[2018-12-25 18:41] LABS: ALT/SGPT < 5 U/l (0-40); Albumin 4.2 gm/dL (3.2-5.2); Albumin/Globulin Ratio 1.4 (1.0-2.3); Alkaline Phosphatase 108 U/L (39-117); Blood Urea Nitrogen 27 mg/dl (8-23); Creatine Kinase 25 IU/L (24-170); Creatine Kinase MB 1.3 ng/ml (0-2.9); Myoglobin 51 ng/ml (25-58)
[2018-12-25] MEDS ORDERED: LABETALOL HCL 20 MG/4 ML SYRINGE IV ONE (18:59)
--- NOTE | 2018-12-25 19:00 | Emergency Department Note ---
General Adult HPI - General Chief complaint: Blood Pressure Problem Stated complaint: Upper back and jaw pain today, high blood pressure Time Seen by Provider: 12/25/18 18:30 Source: patient, family Mode of arrival: wheelchair Limitations: no limitations - History of Present Illness HPI Narrative: This pleasant 83-year-old female comes the emergency room with elevated blood pressures above 200 and an episode radiating into her right jaw and upper back on the right side that occurred at around 3:00 while sitting at home. She has a history of aortic valve replacement, porcine, but was told her arteries were pristine at angiography 10 years ago. She has multiple other medical problems see problem list. REVIEW OF SYSTEMS: No nausea, vomiting, diarrhea, constipation. No shortness of breath. No new other reported signs or symptoms. - Related Data Home Medications Medication Instructions Recorded Confirmed alendronate 70 mg tablet 70 mg PO SA 10/07/17 07/07/18 aspirin 81 mg tablet,delayed 81 mg PO QDAY 10/07/17 07/07/18 release blood sugar diagnostic strips See Dose Instructions SQ DAILY #20 10/07/17 07/07/18 each coenzyme Q10 400 mg capsule 400 mg PO QDAY cap 10/07/17 07/07/18 levothyroxine 112 mcg capsule 112 mcg PO QDAY 10/07/17 07/07/18 lisinopril 40 mg tablet 40 mg PO BID tab 10/07/17 07/07/18 metoprolol tartrate 25 mg tablet 50 mg PO BID 10/07/17 07/07/18 pantoprazole 40 mg tablet,delayed 40 mg PO QDAY 10/07/17 07/07/18 release polyethylene glycol 3350 17 17 g PO QDAY g 10/07/17 07/07/18 gram/dose oral powder pramipexole 0.125 mg tablet 0.125 mg PO BID 10/07/17 07/07/18 Escitalopram [Lexapro] 10 mg PO DAILY 01/26/18 07/07/18 NIFEdipine [Adalat cc] 60 mg PO BID 01/26/18 07/07/18 Carbidopa/Levodopa [Carbidopa-Levo 1 each PO TID 06/16/18 07/07/18 25-100 mg Odt] Potassium Chloride [Klor-Con 20 meq PO DAILY 06/16/18 07/07/18 Sprinkle] Ferrous Sulfate [Iron] 2,000 unit PO 07/26/18 Furosemide [Lasix] 20 mg PO Q2D 07/26/18 07/26/18 Levothyroxine Sodium [Synthroid] 112 mcg PO DAILY 07/26/18 07/26/18 Sennosides/Docusate Sodium 1 each PO QPM 07/26/18 07/26/18 [Senna-S Tablet] hydrALAZINE [Apresoline] 25 mg PO 07/26/18 Previous Rx's Medication Instructions Recorded Accu-Chek 1 each FS ACHS strip 01/28/18 Acetaminophen [Tylenol] 650 mg PO Q6HP PRN tablet 01/28/18 Bisacodyl [Dulcolax] 10 mg MA Q2-3DAYS PRN supp.rect 01/28/18 Docusate Sodium [Colace] 100 mg PO BID capsule 01/28/18 metFORMIN [Glucophage] 500 mg PO BIDCC tablet 01/28/18 Allergies Allergy/AdvReac Type Severity Reaction Status Date / Time codeine Allergy Severe Rash Verified 12/25/18 17:35 Past Medical History - Past Medical History [facility] Narrative: Medical History (Last Updated 12/25/18 @ 19:09 by Cj Vargas DO) 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) History of anemia due to chronic kidney disease (Chronic) History of basal cell carcinoma (Chronic) Renal stones (Chronic) Left carotid bruit (Chronic) Heart murmur, systolic (Chronic) Osteoarthrosis, generalized, involving multiple sites (Chronic) Claudication (Chronic) Unsteady gait (Chronic) Myalgia (Chronic) Spinal stenosis (Chronic) Osteoporosis (Chronic) Personal history of malignant neoplasm of breast (Chronic) CKD (chronic kidney disease), stage IV (Chronic) detention current use of bisphosphonates (Chronic) Long-term use of aspirin therapy (Chronic) Atypical chest pain (Chronic) Stroke (Chronic) Memory loss (Chronic) Pure hypercholesterolemia, unspecified (Chronic) Primary hyperparathyroidism (Chronic) Parkinson disease (Chronic) Hypothyroidism, iodine (Chronic) Headache (Chronic) ESR raised (Chronic) Hypertensive chronic kidney disease with stage 1 through stage 4 chronic kidney disease, or unspecified chronic kidney disease (Chronic) History of hysterectomy (Chronic) Adenocarcinoma, breast (Resolved) Past Surgical History (Last Updated 12/25/18 @ 19:12 by Cj Vargas DO) History of modified radical mastectomy of right breast (Chronic) History of cataract extraction (Acute) History of hip replacement (Acute) History of tonsillectomy (Acute) History of aortic valve replacement (Chronic ~01/2009) History of cholecystectomy (Chronic) History of colonoscopy (Chronic 07/13/13) History of left breast biopsy (Chronic) Family History (Last Updated 10/07/17 @ 12:20 by Jie Rodney) Mother Heart disease Medical history: Denies: COPD, myocardial infarction - Social History smoking status: Never smoker Physical Exam Limitations: no limitations General appearance: alert, in no apparent distress Head: atraumatic, normocephalic Eye: Present: EOMI Neck: Present: trachea midline. Absent: lymphadenopathy, thyromegaly Chest: Present: symmetric chest wall rise Respiratory: Present: normal lung sounds bilaterally. Absent: respiratory distress, wheezes, stridor, accessory muscle use, prolonged expiratory phase Cardiovascular: Present: regular rate, normal rhythm, systolic murmur. Absent: diastolic murmur Type of murmur: systolic, blowing Location of murmur: LUSB Intensity of murmur: 3/6 Abdominal: Present: soft. Absent: distention, guarding, rebound, rigidity, organomegaly, mass Extremities: Absent: pedal edema, pretibial edema, calf tenderness Back: Absent: CVA tenderness (R), CVA tenderness (L), spinous process tenderness Neurological: Present: alert, oriented X3, other (Somewhat flat facies) Psychiatric: Present: normal mood. Absent: depressed, agitated, anxious Skin: Present: warm, dry Course Vital Signs Temperature 96.9 F L 12/25/18 17:35 Pulse Rate 64 12/25/18 17:35 Respiratory Rate 17 12/25/18 17:35 Blood Pressure 205/81 12/25/18 17:35 Pulse Oximetry (%) 99 12/25/18 17:35 Temperature 96.9 F L 12/25/18 17:35 Pulse Rate 59 L 12/25/18 18:22 Respiratory Rate 16 12/25/18 18:22 Blood Pressure 198/72 12/25/18 18:17 Pulse Oximetry (%) 96 12/25/18 18:22 Medical Decision Making - [facility] Narrative Medical decision making narrative: 6:45 PM - basic labs of already been done. These were negative for any cardiac enzymes. EKG was with normal sinus rhythm and otherwise unremarkable. Case discussed with Dr. Grant who will be assuming her care. Labetalol IV initiated for her elevated blood pressure. He will follow-up for disposition and any other additional treatment. - Medical Records Medical records reviewed: Yes I reviewed the patient's medical records. - Lab Data Lab results reviewed: Yes I reviewed the patient's lab results. Result diagrams: 12/25/18 17:48 12/25/18 17:48 Lab Results 12/25/18 12/25/18 12/25/18 Range/Units 17:48 17:48 17:48 WBC 8.7 (4.5-11.0) K/mcL RBC 4.70 (4.00-5.20) M/mcL Hgb 13.3 (12.0-15.0) g/dL Hct 41.1 (36.0-48.0) % MCV 87.5 (80.0-100.0) fL MCH 28.3 (26.0-34.0) pg MCHC 32.4 (31.0-36.0) g/dL RDW 16.5 H (11.5-14.5) % Plt Count 224 (140-440) K/mcL MPV 8.9 (7.4-10.4) fL Gran % 67.6 (38.0-78.0) % Lymph % (Auto) 17.2 (15.5-49.0) % [place] % (Auto) 6.1 (1.0-12.0) % Eos % (Auto) 8.7 H (0.0-7.0) % Baso % (Auto) 0.4 (0.0-2.0) % Gran # 5.9 (1.8-8.0) K/mcL Lymph # (Auto) 1.5 (1.5-4.8) K/mcL [place] # (Auto) 0.5 (0.1-0.9) K/mcL Eos # (Auto) 0.8 H (0.0-0.7) K/mcL Baso # (Auto) 0 (0.0-0.3) K/mcL Sodium 139 (133-145) mmol/L Potassium 4.4 (3.3-5.1) mmol/L Chloride 101 (96-108) mmol/L Carbon Dioxide 24 (22-30) mmol/L Anion Gap 14.0 (8-16) BUN 27 H (8-23) mg/dl Creatinine 1.9 H (0.6-1.1) mg/dl GFR Calculation 24 Glucose 131 H (70-105) mg/dL Calcium 12.0 H (8.6-10.4) mg/dl Total Bilirubin 0.2 (0.0-1.0) mg/dL AST 9 (0-37) U/l ALT < 5 (0-40) U/l Alkaline Phosphatase 108 (39-117) U/L Total Creatine Kinase 25 (24-170) IU/L CK-MB (CK-2) 1.3 (0-2.9) ng/ml Myoglobin 51 (25-58) ng/ml Troponin T < 0.01 (0-0.03) ng/ml Total Protein 7.1 (5.9-8.4) gm/dL Albumin 4.2 (3.2-5.2) gm/dL Globulin 2.9 (2.2-3.7) gm/dL Albumin/Globulin Ratio 1.4 (1.0-2.3) - Radiology Data Radiology results reviewed: Yes I reviewed the patient's radiology results. Cardiomegaly. Seems unchanged from previous personally 1 year ago. Pending radiologist interpretation. - EKG Data EKG #1 EKG results narrative: No acute coronary syndrome findings. This ECG will be read by a rotary driller. Disposition Pt seen by LIBRARY SERVICES COORDINATOR/PA only: No Clinical Impression: Chest pain at rest, Hypertensive urgency Disposition: Still a Patient Referrals: Demetria Mckeon MD [Primary Care Provider] -
[2018-12-25] MEDS ORDERED: hydrALAZINE 20 MG/ML VIAL IV ONE (19:18)
--- NOTE | 2018-12-25 20:00 | Emergency Department Note ---
General Adult HPI - General Chief complaint: Blood Pressure Problem Stated complaint: Upper back and jaw pain today, high blood pressure Time Seen by Provider: 12/25/18 18:30 Source: patient, family Mode of arrival: wheelchair Limitations: no limitations - History of Present Illness HPI Narrative: 83-year-old female assumed care from Dr. Vargas at 19:[address] Vargas: comes the emergency room with elevated blood pressures above 200 and an episode radiating into her right jaw and upper back on the right side that occurred at around 3:00 while sitting at home. She has a history of aortic valve replacement, porcine, but was told her arteries were pristine at angiography 10 years ago. Upon seeing patient, patient accompanied by daughter, with history of Parkinson's disease, presenting also with right facial droop, unsure if this is a chronic issue, unknown when last normal is, with daughter stating that her facial droop in ER is a bit more pronounced than it normally is, with daughter seeing patient last yesterday at 7pm, NIHSS of 4. No longer having jaw tenderness upon me seeing patient. History of reported distant TIA about 10 years ago. - Related Data Home Medications Medication Instructions Recorded Confirmed alendronate 70 mg tablet 70 mg PO SA 10/07/17 12/25/18 aspirin 81 mg tablet,delayed 81 mg PO QDAY 10/07/17 12/25/18 release blood sugar diagnostic strips See Dose Instructions SQ DAILY #20 10/07/17 07/07/18 each coenzyme Q10 400 mg capsule 400 mg PO QDAY cap 10/07/17 12/25/18 lisinopril 40 mg tablet 40 mg PO DAILY tab 10/07/17 12/25/18 metoprolol tartrate 25 mg tablet 50 mg PO BID 10/07/17 12/25/18 pantoprazole 40 mg tablet,delayed 40 mg PO QDAY 10/07/17 12/25/18 release pramipexole 0.125 mg tablet 0.125 mg PO BID 10/07/17 12/25/18 Escitalopram [Lexapro] 10 mg PO DAILY 01/26/18 12/25/18 NIFEdipine [Adalat cc] 60 mg PO BID 01/26/18 12/25/18 Carbidopa/Levodopa [Carbidopa-Levo 2 each PO TID 06/16/18 12/25/18 25-100 mg Odt] Potassium Chloride [Klor-Con 20 meq PO DAILY 06/16/18 12/25/18 Sprinkle] Ferrous Sulfate [Iron] 2,000 unit PO DAILY 07/26/18 12/25/18 Furosemide [Lasix] 40 mg PO DAILY 07/26/18 12/25/18 Levothyroxine Sodium [Synthroid] 112 mcg PO DAILY 07/26/18 12/25/18 Sennosides/Docusate Sodium 2 each PO QPM 07/26/18 12/25/18 [Senna-S Tablet] hydrALAZINE [Apresoline] 25 mg PO BID 07/26/18 12/25/18 Isosorbide Mononitrate [Isosorbide 30 mg PO DAILY 12/25/18 12/25/18 Mononitrate ER] Previous Rx's Medication Instructions Recorded Accu-Chek 1 each FS ACHS strip 01/28/18 Acetaminophen [Tylenol] 650 mg PO Q6HP PRN tablet 01/28/18 metFORMIN [Glucophage] 500 mg PO BIDCC tablet 01/28/18 Allergies Allergy/AdvReac Type Severity Reaction Status Date / Time codeine Allergy Severe Rash Verified 12/25/18 17:35 Review of Systems All systems ED: reviewed and negative except as stated. Past Medical History - Past Medical History Source: nursing notes reviewed Medical history: Denies: COPD, myocardial infarction Surgical history ED: Reports: heart valve replacement - Social History smoking status: Never smoker Physical Exam Limitations: no limitations General appearance: alert, in no apparent distress Head: atraumatic, normocephalic Eye: Present: normal appearance, PERRL, EOMI ENT: normal exam, normal oropharynx, mucous membranes moist Neck: Present: normal inspection, full ROM Chest: Present: normal inspection, symmetric chest wall rise Respiratory: Present: normal lung sounds bilaterally. Absent: respiratory distress, rales/crackles, wheezes, stridor Cardiovascular: Present: regular rate, normal rhythm, systolic murmur (mechanical heart sounds at 2nd right interspace) Abdominal: Present: soft. Absent: distention, tenderness, guarding, rebound Extremities: Present: normal inspection, full ROM Back: Present: normal inspection, full ROM. Absent: tenderness, CVA tenderness (R), CVA tenderness (L) Neurological: Present: alert, oriented X3 Patient oriented to: Present: person, place, time Speech: Present: fluid speech Cranial nerves: facial sensation (V): Normal, facial palsy (VII): Abnormal Right (right facial droop) Cerebellar function: finger to nose: Normal, heel to serrano: Normal Motor strength - LUE: 5/5 Motor strength - RUE: 5/5 Upper motor neuron exam: davion neglect: Absent bilaterally DTR: 2+: biceps (L), biceps (R) Coma Scale Eye Opening: Spontaneous Coma Scale Motor Response: Obeys Commands Coma Scale Verbal Response: Oriented Coma Scale Total: 15 Psychiatric: Present: normal affect, normal mood Course Vital Signs Temperature 96.9 F L 12/25/18 17:35 Pulse Rate 64 12/25/18 17:35 Respiratory Rate 17 12/25/18 17:35 Blood Pressure 205/81 12/25/18 17:35 Pulse Oximetry (%) 99 12/25/18 17:35 Temperature 96.9 F L 12/25/18 17:35 Pulse Rate 68 12/25/18 21:48 Respiratory Rate 15 12/25/18 21:48 Blood Pressure 158/63 12/25/18 21:47 Pulse Oximetry (%) 97 12/25/18 21:48 Medical Decision Making - MDM Narrative Medical decision making narrative: Patient presenting with hypertensive emergency with Cr 1.9, normally 1.6, eGFR in 20s range, pressures 240/110. Given IV Hydralazine 10mg with improvement down into 140's/80s. troponin negative at <0.01. EKG NSR, no ST changes. NIHSS of 4, albeit with baseline of Parkinson's disease with right facial droop, reportedly appearing different from daughter than her baseline. CT head w/o contrast demonstrating old lacunar infarct, no acute findings. Patient given 325mg ASA. Based on Cr of 1.9, unable to perform CT angiography. With ABCD2 score of 7, and NIHSS of 4, patient admitted observation for TIA, acute on chronic kidney disease, hypertensive emergency. Discussed with Dr. Rosario at 21:00, agreed to admission, in serious condition, for observation for TIA in monitored bed. - Lab Data Lab results reviewed: Yes I reviewed the patient's lab results. Result diagrams: 12/25/18 17:48 12/25/18 17:48 Lab Results 12/25/18 12/25/18 12/25/18 Range/Units 17:48 17:48 17:48 WBC 8.7 (4.5-11.0) K/mcL RBC 4.70 (4.00-5.20) M/mcL Hgb 13.3 (12.0-15.0) g/dL Hct 41.1 (36.0-48.0) % MCV 87.5 (80.0-100.0) fL MCH 28.3 (26.0-34.0) pg MCHC 32.4 (31.0-36.0) g/dL RDW 16.5 H (11.5-14.5) % Plt Count 224 (140-440) K/mcL MPV 8.9 (7.4-10.4) fL Gran % 67.6 (38.0-78.0) % Lymph % (Auto) 17.2 (15.5-49.0) % [place] % (Auto) 6.1 (1.0-12.0) % Eos % (Auto) 8.7 H (0.0-7.0) % Baso % (Auto) 0.4 (0.0-2.0) % Gran # 5.9 (1.8-8.0) K/mcL Lymph # (Auto) 1.5 (1.5-4.8) K/mcL [place] # (Auto) 0.5 (0.1-0.9) K/mcL Eos # (Auto) 0.8 H (0.0-0.7) K/mcL Baso # (Auto) 0 (0.0-0.3) K/mcL Sodium 139 (133-145) mmol/L Potassium 4.4 (3.3-5.1) mmol/L Chloride 101 (96-108) mmol/L Carbon Dioxide 24 (22-30) mmol/L Anion Gap 14.0 (8-16) BUN 27 H (8-23) mg/dl Creatinine 1.9 H (0.6-1.1) mg/dl GFR Calculation 24 Glucose 131 H (70-105) mg/dL Calcium 12.0 H (8.6-10.4) mg/dl Total Bilirubin 0.2 (0.0-1.0) mg/dL AST 9 (0-37) U/l ALT < 5 (0-40) U/l Alkaline Phosphatase 108 (39-117) U/L Total Creatine Kinase 25 (24-170) IU/L CK-MB (CK-2) 1.3 (0-2.9) ng/ml Myoglobin 51 (25-58) ng/ml Troponin T < 0.01 (0-0.03) ng/ml Total Protein 7.1 (5.9-8.4) gm/dL Albumin 4.2 (3.2-5.2) gm/dL Globulin 2.9 (2.2-3.7) gm/dL Albumin/Globulin Ratio 1.4 (1.0-2.3) - Radiology Data Radiology results reviewed: Yes I reviewed the patient's radiology results. Disposition Pt seen by SHIP RIGGER APPRENTICE/PA only: No Clinical Impression: Chest pain at rest, Hypertensive urgency, TIA (transient ischemic attack) Disposition: Xfer As Outpt/Obs ([facility]) Condition: Serious Referrals: Demetria Mckeon MD [Primary Care Provider] -
[2018-12-25] MEDS ORDERED: ASPIRIN 81 MG TAB.CHEW CHEWED ONE (20:31)
[2018-12-25 22:31] LABS: Ionized Calcium 1.56 mmol/L (1.16-1.32)
[2018-12-25 22:43] LABS: Parathyroid Hormone Intact 299.7 pg/ml (15-65)
--- NOTE | 2018-12-25 22:44 | Internal Med History&Physical ---
Medical - H&P: HPI Patient information: Note initiated : 12/25/18 at 10:38 pm Service Date, if different from initiated Date: [] Patient: Judit Shankar 83 y/o F admitted on for Upper back and jaw pain today, high blood pressure. Chief Complaint: [] History of present illness: Ms. Shankar is a 83 year old F resents to the ED after she developed jaw and back pain. She has had this pain in the past, half a dozen time over the last several months but she did not think much of it. Today it was more severe and lasted about 20 minutes, it was described as a dull ache. Thus her brought her in. She denies any chest pain or shortness of breath with that episode. Denies any associated headache dizziness or lightheadedness, no shortness of breath, she does have some shortness of breath with exertion which is normal for her but nothing acute currently. She was just sitting when the pain came on. In the ED she was found to be hypertensive in the systolic in the 200s. She states her systolic blood pressure runs in the 160s 170s at home on a regular basis. I see multiple blood pressure medications on her list including hydralazine lisinopril nifedipine metoprolol tartrate as well as Imdur and Lasi x. Calcium was found to be elevated as well and. She has chronic hypercalcemia dating back for years. Seems she typically runs 11-12. She was not aware of this when I mentioned it. She takes alendronate. An old note from [facility] mentions hypercalcemia she was treated with pamidronate and calcitonin at that time. She does have breast cancer but there have been no recurrences or issues with that she recently saw Dr. Varma. She does complain of constipation and polyuria and she has had stomach aches/crampy pain over the past several months as well. 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 However per daughter is felt to be more significant today, last appearance of normal was last night when her daughter s aw her. So there was a concern for possible stroke, CT brain was done which was unremarkable, she has no other focal deficits. Her troponin and EKG were unremarkable. CT brain showed old lacunar infarct, chest x-ray unremarkable. Review of Systems: Pertinent positives as above. Denies headache/ fever/chills/nausea/vomiting/chest or abdominal pain/cough/dyspnea/diarrhea. 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) History of anemia due to chronic kidney disease (Chronic) History of basal cell carcinoma (Chronic) Renal stones (Chronic) Left carotid bruit (Chronic) Heart murmur, systolic (Chronic) Osteoarthrosis, generalized, involving multiple sites (Chronic) Claudication (Chronic) Unsteady gait (Chronic) Myalgia (Chronic) Spinal stenosis (Chronic) Osteoporosis (Chronic) Personal history of malignant neoplasm of breast (Chronic) CKD (chronic kidney disease), stage IV (Chronic) senior living current use of bisphosphonates (Chronic) Long-term use of aspirin therapy (Chronic) Atypical chest pain (Chronic) Stroke (Chronic) Memory loss (Chronic) Pure hypercholesterolemia, unspecified (Chronic) Primary hyperparathyroidism (Chronic) Parkinson disease (Chronic) Hypothyroidism, iodine (Chronic) Headache (Chronic) ESR raised (Chronic) Hypertensive chronic kidney disease with stage 1 through stage 4 chronic kidney disease, or unspecified chronic kidney disease (Chronic) History of hysterectomy (Chronic) Adenocarcinoma, breast (Resolved) Past Surgical History (Last Updated 12/25/18 @ 19:12 by Cj Vargas DO) History of modified radical mastectomy of right breast (Chronic) History of cataract extraction (Acute) History of hip replacement (Acute) History of tonsillectomy (Acute) History of aortic valve replacement (Chronic ~01/2009) History of cholecystectomy (Chronic) History of colonoscopy (Chronic 07/13/13) History of left breast biopsy (Chronic) Family History (Last Updated 10/07/17 @ 12:20 by iJe Rodney) Mother Heart disease Father had COPD Social History (Last Updated 10/07/17 @ 12:20 by Jie Rodney) She does not smoke or drink alcohol, she amylase with a walker, lives at home with her Medical - H&P: Meds Home Medications Medication Instructions Recorded Confirmed Type alendronate 70 mg tablet 70 mg PO SA 10/07/17 12/25/18 History aspirin 81 mg tablet,delayed 81 mg PO QDAY 10/07/17 12/25/18 History release blood sugar diagnostic strips See Dose Instructions SQ DAILY #20 10/07/17 07/07/18 History each coenzyme Q10 400 mg capsule 400 mg PO QDAY cap 10/07/17 12/25/18 History lisinopril 40 mg tablet 40 mg PO DAILY tab 10/07/17 12/25/18 History metoprolol tartrate 25 mg tablet 50 mg PO BID 10/07/17 12/25/18 History pantoprazole 40 mg tablet,delayed 40 mg PO QDAY 10/07/17 12/25/18 History release pramipexole 0.125 mg tablet 0.125 mg PO BID 10/07/17 12/25/18 History Escitalopram [Lexapro] 10 mg PO DAILY 01/26/18 12/25/18 History NIFEdipine [Adalat cc] 60 mg PO BID 01/26/18 12/25/18 History Accu-Chek 1 each FS ACHS strip 01/28/18 Rx Acetaminophen [Tylenol] 650 mg PO Q6HP PRN tablet 01/28/18 12/25/18 Rx metFORMIN [Glucophage] 500 mg PO BIDCC tablet 01/28/18 12/25/18 Rx Carbidopa/Levodopa [Carbidopa-Levo 2 each PO TID 06/16/18 12/25/18 History 25-100 mg Odt] Potassium Chloride [Klor-Con 20 meq PO DAILY 06/16/18 12/25/18 History Sprinkle] Ferrous Sulfate [Iron] 2,000 unit PO DAILY 07/26/18 12/25/18 History Furosemide [Lasix] 40 mg PO DAILY 07/26/18 12/25/18 History Levothyroxine Sodium [Synthroid] 112 mcg PO DAILY 07/26/18 12/25/18 History Sennosides/Docusate Sodium 2 each PO QPM 07/26/18 12/25/18 History [Senna-S Tablet] hydrALAZINE [Apresoline] 25 mg PO BID 07/26/18 12/25/18 History Isosorbide Mononitrate [Isosorbide 30 mg PO DAILY 12/25/18 12/25/18 History Mononitrate ER] Allergies Allergy/AdvReac Type Severity Reaction Status Date / Time codeine Allergy Severe Rash Verified 12/25/18 17:35 Medical - H&P: Exam - Constitutional Vitals: Temp Pulse Resp BP Pulse Ox 96.9 F L 70 19 147/56 95 12/25/18 17:35 12/25/18 22:32 12/25/18 22:32 12/25/18 22:32 12/25/18 22:32 Exam: General: Alert, Awake, No acute Distress Eyes/N/T: EOMI, PEERL, DMM Head/Neck: neck supple, normocephalic atraumatic CV: RRR, 3/6 SM, normal s1/s2 Pulm: Clear b/l, no wheezing/rhonchi/rales Abd: soft, nontender, +BS x4 Ext: no clubbing/cyanosis, trace b/l LE edema Neuro: Alert, slight right facial droop, ymmetrical strength b/l upper/lower, sensations intact b/l upper/lower, no pronator drift, sensations intact bilater al facial Skin: warm/dry Medical - H&P: Reslt - Labs CBC & Chem 7: 12/25/18 17:48 12/25/18 17:48 Labs: Short CBC 12/25/18 Range/Units 17:48 WBC 8.7 (4.5-11.0) K/mcL Hgb 13.3 (12.0-15.0) g/dL Hct 41.1 (36.0-48.0) % Plt Count 224 (140-440) K/mcL BMP 12/25/18 17:48 Sodium 139 Potassium 4.4 Chloride 101 Carbon Dioxide 24 BUN 27 H Creatinine 1.9 H Glucose 131 H Calcium 12.0 H Cardiac Enzymes 12/25/18 12/25/18 Range/Units 17:48 17:48 Total Creatine Kinase 25 (24-170) IU/L CK-MB (CK-2) 1.3 (0-2.9) ng/ml Troponin T < 0.01 (0-0.03) ng/ml Liver Function 12/25/18 Range/Units 17:48 Total Bilirubin 0.2 (0.0-1.0) mg/dL AST 9 (0-37) U/l ALT < 5 (0-40) U/l Alkaline Phosphatase 108 (39-117) U/L Albumin 4.2 (3.2-5.2) gm/dL - Impressions Per report from your doctor as I do not have the official read, but the CT with old lacunar infarct otherwise no acute pathology. EKG no acute ST-T wave changes, Chest x-ray unremarkable for acute pathology Medical - H&P: A/P - Narrative A/P Narrative: A: *Hypertensive urgency/emergency: uncontrolled at home, typically runs 160's- 170's *?TIA (h/o lacunar CVA) *Hypercalcemia (chronic): Concern for primary hyperparathyroidism which could be the cause of so many of her symptoms, sounds like she has had elevated PTH per an old note -is on alendronate for osteoporosis - *NINA on CKD IV vs baseline CKD: *DM *Parkinson's *?h/o CHF: *Hypothyroid *GERD *Depression *h/o Aortic valve replaced *Osteoporosis * P: -IVF's -calcitonin, f/u calcium -pending PTH/TSH -cont ASA, start statin -MRI pending, if positive check echo -cont bp meds, hold ACEI and f/u renal fxn, allow some BP elevation given ??TIA but also runs 160-180 at home - - -SSI -pt/ot -ppx: heparin/pepcid
[2018-12-25] MEDS ORDERED: PROMETHAZINE 25 MG/ML VIAL IV PRN (23:07)
[2018-12-25] MEDS ORDERED: ONDANSETRON 4 MG/2 ML VIAL IV PRN (23:07)
[2018-12-25] MEDS ORDERED: ACETAMINOPHEN 325 MG TABLET PO PRN (23:07)
[2018-12-25] MEDS ORDERED: DEXTROSE 50% 50 ML VIAL IV PRN (23:07)
[2018-12-25] MEDS ORDERED: ALENDRONATE SODIUM 70 MG TABLET PO SCH (23:07)
[2018-12-25] MEDS ORDERED: ATORVASTATIN 40 MG TABLET PO SCH (23:07)
[2018-12-25] MEDS ORDERED: LABETALOL HCL 20 MG/4 ML SYRINGE IV PRN (23:07)
[2018-12-25] MEDS ORDERED: CALCITONIN 400 UNIT/2 ML VIAL IM STA (23:07)
[2018-12-25] MEDS ORDERED: hydrALAZINE 20 MG/ML VIAL IV PRN (23:07)
[2018-12-25] MEDS ORDERED: BISACODYL 10 MG SUPP.RECT PR PRN (23:07)
[2018-12-25] MEDS ORDERED: SENNOSIDES 1 TABLET PO PRN (23:07)
[2018-12-25] MEDS ORDERED: DEXTROSE 31 GM ORAL.SUSP PO PRN (23:07)
[2018-12-25] MEDS ORDERED: POLYETHYLENE GLYCOL 3350 17 GM PACKET PO PRN (23:07)
[2018-12-25] MEDS ORDERED: IPRATROPIUM/ALBUTEROL 3 ML AMPUL.NEB NEB PRN (23:07)
[2018-12-25 23:39] LABS: HDL Cholesterol 48 mg/dl (>40); LDL Cholesterol,Calculated 116 mg/dl (SEE CHART)
[2018-12-25] MEDS ORDERED: ATORVASTATIN 20 MG TABLET PO ONE (23:45)
[2018-12-26] MEDS: 0.9 % SODIUM CHLORIDE 1,000 ML IV SCH ×3 (00:55→14:52)
[2018-12-26] MEDS ORDERED: hydrALAZINE 20 MG/ML VIAL ONE (04:07)
[2018-12-26 05:21] LABS: Basophils # (Auto) 0 K/mcL (0.0-0.3); Basophils % (Auto) 0.3 % (0.0-2.0); Eosinophils # (Auto) 0.7 K/mcL (0.0-0.7); Eosinophils % (Auto) 8.5 % (0.0-7.0); Granulocytes % (Auto) 64.4 % (38.0-78.0); Lymphocytes # (Auto) 1.5 K/mcL (1.5-4.8); Lymphocytes % (Auto) 18.9 % (15.5-49.0); Mean Cell Volume 87.2 fL (80.0-100.0); Mean Corpuscular HGB Conc 32.7 g/dL (31.0-36.0); Monocytes # (Auto) 0.6 K/mcL (0.1-0.9); Monocytes % (Auto) 7.9 % (1.0-12.0); Platelet Count 196 K/mcL (140-440); RBC 4.13 M/mcL (4.00-5.20); Red Cell Distribution Width 16.2 % (11.5-14.5)
[2018-12-26 05:39] LABS: ALT/SGPT < 5 U/l (0-40); Albumin 3.5 gm/dL (3.2-5.2); Albumin/Globulin Ratio 1.4 (1.0-2.3); Alkaline Phosphatase 90 U/L (39-117); Bilirubin,Direct < 0.2 mg/dL (0.0-0.3); Blood Urea Nitrogen 29 mg/dl (8-23); Gamma Glutamyl Transpeptidase 9 U/L (5-36); Uric Acid 9.4 mg/dL (2.5-8.0)
--- NOTE | 2018-12-26 07:44 | Internal Med Progress Note ---
Medical - PN: Subj Patient information: Note initiated : 12/26/18 at 7:27 am Service Date, if different from initiated Date: [] Patient: Judit Shankar 83 y/o F admitted on 12/25/18 for Upper back and jaw pain today, high blood pressure. Chief Complaint: [] Interval history: Ms. Shankar is a 83 year old F resents to the ED after she developed jaw and back pain. She has had this pain in the past, half a dozen time over the last several months but she did not think much of it. Today it was more severe and lasted a bout 20 minutes, it was described as a dull ache. Thus her brought her in. She denies any chest pain or shortness of breath with that episode. Denies any associated headache dizziness or lightheadedness, no shortness of breath, she does have some shortness of breath with exertion which is normal for her but nothing acute currently. She was just sitting when the pain came on. In the ED she was found to be hypertensive in the systolic in the 200s. She states her systolic blood pressure runs in the 160s 170s at home on a regular basis. I see multiple blood pressure medications on her list including hydralazine lisinopril nifedipine metoprolol tartrate as well as Imdur and Lasix. Calcium was found to be elevated as well and. She has chronic hypercalcemia dating back for years. Seems she typically runs 11-12. She was not aware of this when I mentioned it. She takes alendronate. An old note from [facility] mentions hypercalcemia she was treated with pamidronate and calc itonin at that time. She does have breast cancer but there have been no recurrences or issues with that she recently saw Dr. Varma. She does complain of constipation and polyuria and she has had stomach aches/crampy pain over the past several months as well. 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 However per daughter is felt to be more significant today, last appearance of normal was last night when her daughter saw her. So there was a concern for possible stroke, CT brain was done which was unremarkable, she has no other focal deficits. Her troponin and EKG were unremarkable. CT brain showed old lacunar infarct, chest x-ray unremarkable. 12/26 Given 1 dose of as needed hydralazine last night in ICU, With good response. No overnight events. No new complaints from the patient. No numbness or tingling or weakness. No headache fever chills or coughing or shortness of breath. Review of Systems: denies headache/fever/chills/nausea/vomiting/chest or abdominal pain/cough/dyspnea/diarrhea. Otherwise see above. - Constitutional Vitals: Vital Signs Temp Pulse Resp BP Pulse Ox 96.9 F L 65 17 141/57 94 12/25/18 23:05 12/26/18 07:15 12/26/18 07:15 12/26/18 07:01 12/26/18 07:15 Period Temp Pulse Resp BP Sys/Harris Pulse Ox Last 24 Hr 96.9 F-98.6 F 56-72 12-23 113-249/48-142 94-99 Intake and Output 12/25/18 12/26/18 12/26/18 21:59 05:59 13:59 Intake Total 250 Output Total 200 Balance 50 Weight 87.09 kg 86.319 kg Intake & Output: Intake & Output 12/25/18 12/26/18 12/26/18 21:59 05:59 13:59 Intake Total 250 Output Total 200 Balance 50 Weight 87.09 kg 86.319 kg Intake: Oral 250 Output: Void Amount 200 Other: Urine Color Dark Yellow Urine Odor Strong Exam: General: Alert, Awake, No acute Distress Eyes/N/T: EOMI, Head/Neck: neck supple, CV: RRR, 3/6 SM, Pulm: Clear b/l, no wheezing/rhonchi/rales Abd: soft, nontender, +BS x4 Ext: no clubbing/cyanosis, trace b/l LE edema Neuro: Alert, very slight right facial droop, symmetrical strength b/l uppe r/lower, sensations intact b/l upper/lower Skin: warm/dry Medical - PN: Obj Da - Labs CBC & Chem 7: 12/26/18 03:50 12/26/18 03:50 Labs: Abnormal Lab Results 12/26/18 12/26/18 12/25/18 03:50 03:50 21:50 Hgb 11.8 L RDW 16.2 H Eos % (Auto) 8.5 H Eos # (Auto) BUN 29 H Creatinine 1.9 H Glucose 109 H Uric Acid 9.4 H Calcium 11.6 H Ionized Calcium Fidelia Triglycerides 204 H 212 H Cholesterol 206 H LDL Cholesterol, Calc 116 H Non-HDL Cholesterol 158 H PTH Intact 12/25/18 12/25/18 12/25/18 21:50 21:50 17:48 Hgb RDW Eos % (Auto) Eos # (Auto) BUN 27 H Creatinine 1.9 H Glucose 131 H Uric Acid Calcium 12.0 H Ionized Calcium Fidelia 1.56 H Triglycerides Cholesterol LDL Cholesterol, Calc Non-HDL Cholesterol PTH Intact 299.7 H 12/25/18 17:48 Hgb RDW 16.5 H Eos % (Auto) 8.7 H Eos # (Auto) 0.8 H BUN Creatinine Glucose Uric Acid Calcium Ionized Calcium Fidelia Triglycerides Cholesterol LDL Cholesterol, Calc Non-HDL Cholesterol PTH Intact Meds: Medications Acetaminophen (Tylenol) 650 mg PO Q4-6HP PRN PRN Reason: PAIN/FEVER > 101 Albuterol/Ipratropium (Duoneb) 3 ml NEB Q4HRT PRN PRN Reason: Bronchospasm Alendronate Sodium (Fosamax) 70 mg PO Sa@0730 [facility] Atorvastatin Calcium (Lipitor) 40 mg PO HS [facility] Bisacodyl (Dulcolax) 10 mg NC Q2-3DAYS PRN PRN Reason: Constipation Dextrose (Dextrose 50%) 0 ml IV UD PRN PRN Reason: Hypoglycemia Diagnostic Test (Pha) (Accu-Chek) 1 each FS ACHS [facility] Docusate Sodium (Colace) 100 mg PO BID [facility] Escitalopram Oxalate (Lexapro) 10 mg PO DAILY [facility] Furosemide (Lasix) 40 mg PO DAILY [facility] Glucose (Insta-Glucose) 15 gm PO PRN PRN PRN Reason: Hypoglycemia Heparin Sodium (Porcine) (Heparin) 5,000 unit SQ Q12 [facility] Hydralazine HCl (Apresoline) 25 mg PO BID [facility] Hydralazine HCl (Apresoline) 0 mg IV Q4-6HP PRN PRN Reason: Hypertension Sodium Chloride (Sodium Chloride 0.9%) 1,000 mls @ 150 mls/hr IV .Q6H40M [facility] Stop: 12/26/18 19:06 Last Admin: 12/26/18 00:55 Dose: 150 mls/hr Documented by: Insulin Human Lispro (Humalog) 0 unit SQ ACHS [facility]; Protocol Isosorbide Mononitrate (Imdur) 30 mg PO DAILY [facility] Labetalol HCl (Labetalol Hcl) 0 mg IV Q2H PRN PRN Reason: Hypertension Levothyroxine Sodium (Synthroid) 112 mcg PO ACB [facility] Metoprolol Tartrate (Lopressor) 50 mg PO BID [facility] Non-Formulary Medication (Aspirin [Lo-Dose Aspirin Ec]) 81 mg PO QDAY [facility] Non-Formulary Medication (Carbidopa/Levodopa [Carbidopa-Levo 25-100 Mg Odt]) 2 each PO TID [facility] Non-Formulary Medication (Nifedipine [Adalat Cc]) 60 mg PO BID [facility] Non-Formulary Medication (Pramipexole Di-Hcl [Pramipexole Dihydrochloride]) 0.125 mg PO BID [facility] Ondansetron HCl (Zofran) 4 mg IV Q4-6HP PRN PRN Reason: Nausea And Vomiting Pantoprazole Sodium (Protonix) 40 mg PO QAMAC [facility] Polyethylene Glycol (Miralax) 17 gm PO DAILYP PRN PRN Reason: Constipation Promethazine HCl (Phenergan) 12.5 mg IV Q4-6HP PRN PRN Reason: Nausea And Vomiting Senna (Senokot) 1 tab PO HSP PRN PRN Reason: Constipation Sodium Chloride (Saline Flush) 10 ml IV Q8 [facility] Medical - PN: A/P - Time Spent With Patient Total time spent is greater than 50% in coordination of care (as documented) at patient's floor/unit and/or counseling patient: - Narrative A/P Narrative: A: *Hypertensive urgency/emergency: uncontrolled at home, typically runs 160's- 170's -home medications listed include hydralazine/lisinopril/nifedipine/metoprolol including imdur and lasix -one dose of prn hydralazine given last night *?TIA (h/o lacunar CVA): doubt *Primary Hyperparathyroidism, calcium has been Hypercalcemia 11-12 chronically: new diagnosis, would explain many of her symptoms -PTH 299 -is on alendronate for osteoporosis *?NINA on CKD IV vs at baseline CKD: *DM: *Parkinson's follows with Dr. Kelsey *?h/o CHF, h/o Aortic Valve replaced: follows with Dr. Eastman *Hypothyroid: tsh wnl *GERD *Depression *Osteoporosis *HLD: P: -IVF's -calcitonin unavailable, some response with IVF's, f/u calcium. renal fxn precluding further bisphos, will try cinacalcet short course -cont ASA, start statin -MRI pending, if positive check echo -cont bp meds, hold ACEI and f/u renal fxn, allow some BP elevation given ??TIA but also runs 160-180 at home, prn's -Records from PCP/cardio/pharmacy regarding BP meds -f/u with endocrinology outpt -[facility] -pt/ot -ppx: heparin/pepcid Medical - PN: Qual - VTE Deep Vein Thrombosis/Pulmonary Embolism Present on Admission: No
[2018-12-26] MEDS: LEVOTHYROXINE SODIUM 112 MCG TABLET PO SCH (08:16)
[2018-12-26] MEDS: PANTOPRAZOLE 40 MG TABLET PO SCH (08:16)
[2018-12-26] MEDS: 0.9 % SODIUM CHLORIDE 10 ML SYRINGE IV SCH ×3 (08:18→21:07)
[2018-12-26] MEDS: INSULIN LISPRO 1 UNIT/0.01 ML UNIT SQ SCH ×4 (08:20→21:07)
[2018-12-26] MEDS ORDERED: ISOSORBIDE MONONITRATE 30 MG TAB.XL.24H PO SCH (09:00)
[2018-12-26] MEDS ORDERED: CARBIDOPA/LEVODOPA 25/100 TABLET PO SCH (09:00)
[2018-12-26] MEDS ORDERED: FUROSEMIDE 20 MG TABLET PO SCH (09:00)
[2018-12-26] MEDS ORDERED: NIFEDIPINE 60 MG PO SCH (09:00)
[2018-12-26] MEDS ORDERED: ASPIRIN 81 MG TAB.CHEW PO SCH (09:00)
[2018-12-26] MEDS ORDERED: ESCITALOPRAM 10 MG TABLET PO SCH (09:00)
--- NOTE | 2018-12-26 09:03 | XRay Report ---
HISTORY: Chest pain FINDINGS: There is mild parenchymal scarring in the right apex. Thin linear scar is present medially in the left lower lobe. These are chronic stable findings. There is no evidence of pneumonia, mass or congestive heart failure. The heart is borderline enlarged but magnified by portable technique. There are sternal wires present. Clips are seen in the axillary portion of the right chest wall. There has been no significant change since 01/16/18. IMPRESSION: No parenchymal scarring and no acute abnormality Interpreted and Authenticated by: Socrates Higgins 12/26/18
--- NOTE | 2018-12-26 09:20 | Cat Scan Report ---
History: Acute focal neurologic deficit TECHNIQUE: The brain was imaged without contrast at 2.5 mm intervals. The radiation exposure was limited using dose reduction technology. FINDINGS: There is a well-circumscribed mass which is partially ossified in the left maxillary sinus. 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 This was outside the field of view of the prior head CT. 1. There are age-related degenerative changes with diffuse cerebral atrophy both above and below the tentorium. There is a 4 mm old lacunar infarct along the inferior border of the left globus pallidus. This was not present in 2007. Severe diffuse white matter disease is present in the nova radiata and centrum semiovale throughout the frontal and parietal lobes with milder involvement in the posterior temporal and occipital lobes. This was present on the prior exam but has progressed. No cortical infarct is detected. There is no hemorrhage or mass effect. No abnormal extra-axial fluid collection is present. IMPRESSION: Severe white matter ischemia or degeneration above the tentorium Small old lacunar infarct inferiorly in the left basal ganglia 1.7 x 3.1 cm mass in the left maxillary sinus which may be an osteoma Dr. Grant was called with results Interpreted and Authenticated by: Socrates Higgins 12/26/18
[2018-12-26] MEDS: PRAMIPEXOLE 0.25 MG TABLET PO SCH ×2 (10:58→20:53)
[2018-12-26] MEDS: CINACALCET 30 MG TABLET PO SCH ×2 (10:58→20:52)
[2018-12-26] MEDS: METOPROLOL TARTRATE 25 MG TABLET PO SCH ×2 (10:59→20:52)
[2018-12-26] MEDS: hydrALAZINE 25 MG TABLET PO SCH ×2 (10:59→20:53)
[2018-12-26] MEDS: DOCUSATE SODIUM 100 MG CAPSULE PO SCH ×2 (11:00→20:52)
[2018-12-26] MEDS: HEPARIN 5,000 UNIT/ML VIAL SQ SCH ×2 (11:01→20:51)
[2018-12-26] MEDS: CARBIDOPA/LEVODOPA CR 25/100 TABLET PO SCH ×2 (14:50→20:52)
[2018-12-26] MEDS ORDERED: ATORVASTATIN 20 MG TABLET PO SCH (21:00)
[2018-12-27 06:01] LABS: Blood Urea Nitrogen 25 mg/dl (8-23)
[2018-12-27] MEDS ORDERED: hydrALAZINE 20 MG/ML VIAL IV PRN (07:25)
[2018-12-27] MEDS ORDERED: LABETALOL HCL 20 MG/4 ML SYRINGE IV PRN ×2 (07:25→08:39)
--- NOTE | 2018-12-27 07:25 | Internal Med Progress Note ---
Medical - PN: Subj Patient information: Note initiated : 12/27/18 at 7:19 am Service Date, if different from initiated Date: [] Patient: Judit Shankar 83 y/o F admitted on 12/25/18 for Upper back and jaw pain today, high blood pressure. Chief Complaint: [] Interval history: Ms. Shankar is a 83 year old F resents to the ED after she developed jaw and back pain. She has had this pain in the past, half a dozen time over the last several months but she did not think much of it. Today it was more severe and lasted a bout 20 minutes, it was described as a dull ache. Thus her brought her in. She denies any chest pain or shortness of breath with that episode. Denies any associated headache dizziness or lightheadedness, no shortness of breath, she does have some shortness of breath with exertion which is normal for her but nothing acute currently. She was just sitting when the pain came on. In the ED she was found to be hypertensive in the systolic in the 200s. She states her systolic blood pressure runs in the 160s 170s at home on a regular basis. I see multiple blood pressure medications on her list including hydralazine lisinopril nifedipine metoprolol tartrate as well as Imdur and Lasix. Calcium was found to be elevated as well and. She has chronic hypercalcemia dating back for years. Seems she typically runs 11-12. She was not aware of this when I mentioned it. She takes alendronate. An old note from [facility] mentions hypercalcemia she was treated with pamidronate and calc itonin at that time. She does have breast cancer but there have been no recurrences or issues with that she recently saw Dr. aVrma. She does complain of constipation and polyuria and she has had stomach aches/crampy pain over the past several months as well. 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 However per daughter is felt to be more significant today, last appearance of normal was last night when her daughter saw her. So there was a concern for possible stroke, CT brain was done which was unremarkable, she has no other focal deficits. Her troponin and EKG were unremarkable. CT brain showed old lacunar infarct, chest x-ray unremarkable. 12/26 Given 1 dose of as needed hydralazine last night in ICU, With good response. No overnight events. No new complaints from the patient. No numbness or tingling or weakness. No headache fever chills or coughing or shortness of breath. 12/27 Slept well, feeling well. Did not need any as needed blood pressure medications last night. Overnight events. Review of Systems: denies headache/fever/chills/nausea/vomiting/chest or abdominal pain/cough/dyspnea/diarrhea. Otherwise see above. - Constitutional Vitals: Vital Signs Temp Pulse Resp BP Pulse Ox 98.4 F 59 L 20 177/69 94 12/27/18 04:50 12/27/18 07:01 12/27/18 07:01 12/27/18 07:01 12/27/18 07:01 Period Temp Pulse Resp BP Sys/Harris Pulse Ox Last 24 Hr 97.8 F-99.0 F 57-73 12-22 111-185/55-122 94-98 Intake and Output 12/26/18 12/27/18 12/27/18 21:59 05:59 13:59 Intake Total 2347 50 Output Total 951 250 Balance 1396 -200 Weight 90.31 kg Intake & Output: Intake & Output 12/26/18 12/27/18 12/27/18 21:59 05:59 13:59 Intake Total 2347 50 Output Total 951 250 Balance 1396 -200 Weight 90.31 kg Intake: IV 1986 Sodium Chloride 0.9% 1,000 ml @ 987 150 mls/hr IV .Q6H40M [facility] Rx#: [id number] Oral 360 50 Output: Void Amount 950 250 # of times incontinent of urine 1 Other: Meal Dinner Percent of Meal Consumed 100% Urine Appearance Clear Urine Color Bright Yellow Exam: General: Alert, Awake, No acute Distress Eyes/N/T: EOMI, Head/Neck: neck supple, CV: RRR, 2/6 SM, Pulm: Clear b/l, no wheezing/rhonchi/rales Abd: soft, nontender, +BS x4 Ext: no clubbing/cyanosis, trace b/l LE edema Neuro: Alert, very slight right facial droop, symmetrical strength b/l upper/lower, sensations intact b/l upper/lower Skin: warm/dry Medical - PN: Obj Da - Labs CBC & Chem 7: 12/26/18 03:50 12/27/18 04:00 Labs: Abnormal Lab Results 12/27/18 12/26/18 12/26/18 04:00 03:50 03:50 Hgb 11.8 L RDW 16.2 H Eos % (Auto) 8.5 H Eos # (Auto) BUN 25 H 29 H Creatinine 1.8 H 1.9 H Glucose 109 H Uric Acid 9.4 H Calcium 11.6 H Ionized Calcium Fidelia Triglycerides 204 H Cholesterol LDL Cholesterol, Calc Non-HDL Cholesterol PTH Intact 12/25/18 12/25/18 12/25/18 21:50 21:50 21:50 Hgb RDW Eos % (Auto) Eos # (Auto) BUN Creatinine Glucose Uric Acid Calcium Ionized Calcium Fidelia 1.56 H Triglycerides 212 H Cholesterol 206 H LDL Cholesterol, Calc 116 H Non-HDL Cholesterol 158 H PTH Intact 299.7 H 12/25/18 12/25/18 17:48 17:48 Hgb RDW 16.5 H Eos % (Auto) 8.7 H Eos # (Auto) 0.8 H BUN 27 H Creatinine 1.9 H Glucose 131 H Uric Acid Calcium 12.0 H Ionized Calcium Fidelia Triglycerides Cholesterol LDL Cholesterol, Calc Non-HDL Cholesterol PTH Intact Meds: Medications Acetaminophen (Tylenol) 650 mg PO Q4-6HP PRN PRN Reason: PAIN/FEVER > 101 Albuterol/Ipratropium (Duoneb) 3 ml NEB Q4HRT PRN PRN Reason: Bronchospasm Alendronate Sodium (Fosamax) 70 mg PO Sa@0730 [facility] Aspirin (Aspirin) 81 mg PO DAILY [facility] Last Admin: 12/26/18 11:00 Dose: 81 mg Documented by: Atorvastatin Calcium (Lipitor) 40 mg PO HS [facility] Last Admin: 12/26/18 20:53 Dose: 40 mg Documented by: Bisacodyl (Dulcolax) 10 mg NE Q2-3DAYS PRN PRN Reason: Constipation Carbidopa/Levodopa (Sinemet Cr 25/100) 2 tab PO TID [facility] Last Admin: 12/26/18 20:52 Dose: 2 tab Documented by: Cinacalcet (Sensipar) 30 mg PO BID [facility] Stop: 12/27/18 21:01 Last Admin: 12/26/18 20:52 Dose: 30 mg Documented by: Dextrose (Dextrose 50%) 0 ml IV UD PRN PRN Reason: Hypoglycemia Diagnostic Test (Pha) (Accu-Chek) 1 each FS [facility] Last Admin: 12/26/18 21:06 Dose: 1 each Documented by: Docusate Sodium (Colace) 100 mg PO BID [facility] Last Admin: 12/26/18 20:52 Dose: 100 mg Documented by: Escitalopram Oxalate (Lexapro) 10 mg PO DAILY [facility] Last Admin: 12/26/18 11:01 Dose: 10 mg Documented by: Furosemide (Lasix) 40 mg PO DAILY [facility] Last Admin: 12/26/18 10:59 Dose: 40 mg Documented by: Glucose (Insta-Glucose) 15 gm PO PRN PRN PRN Reason: Hypoglycemia Heparin Sodium (Porcine) (Heparin) 5,000 unit SQ Q12 [facility] Last Admin: 12/26/18 20:51 Dose: 5,000 unit Documented by: Hydralazine HCl (Apresoline) 25 mg PO BID [facility] Last Admin: 12/26/18 20:53 Dose: 25 mg Documented by: Hydralazine HCl (Apresoline) 10 mg IV Q4-6HP PRN PRN Reason: Hypertension Insulin Human Lispro (Humalog) 0 unit SQ [facility]; Protocol Last Admin: 12/26/18 21:07 Dose: Not Given Documented by: Isosorbide Mononitrate (Imdur) 30 mg PO DAILY [facility] Last Admin: 12/26/18 10:59 Dose: 30 mg Documented by: Labetalol HCl (Labetalol Hcl) 10 mg IV Q2HP PRN PRN Reason: Hypertension Levothyroxine Sodium (Synthroid) 112 mcg PO ACB [facility] Last Admin: 12/26/18 08:16 Dose: 112 mcg Documented by: Metoprolol Tartrate (Lopressor) 50 mg PO BID [facility] Last Admin: 12/26/18 20:52 Dose: 50 mg Documented by: Ondansetron HCl (Zofran) 4 mg IV Q4-6HP PRN PRN Reason: Nausea And Vomiting Pantoprazole Sodium (Protonix) 40 mg PO QAMAC [facility] Last Admin: 12/26/18 08:16 Dose: 40 mg Documented by: Polyethylene Glycol (Miralax) 17 gm PO DAILYP PRN PRN Reason: Constipation Pramipexole Dihydrochloride (Mirapex) 0.125 mg PO BID [facility] Last Admin: 12/26/18 20:53 Dose: 0.125 mg Documented by: Promethazine HCl (Phenergan) 12.5 mg IV Q4-6HP PRN PRN Reason: Nausea And Vomiting Senna (Senokot) 1 tab PO HSP PRN PRN Reason: Constipation Sodium Chloride (Saline Flush) 10 ml IV Q8 [facility] Last Admin: 12/26/18 21:07 Dose: 10 ml Documented by: Medical - PN: A/P - Time Spent With Patient Total time spent is greater than 50% in coordination of care (as documented) at patient's floor/unit and/or counseling patient: - Narrative A/P Narrative: A: *Hypertensive urgency/emergency: uncontrolled at home, typically runs 160's- 170's -home medications listed include hydralazine/lisinopril/metoprolol including imdur and lasix *?TIA (h/o lacunar CVA): doubt *Primary Hyperparathyroidism, calcium has been 11-12 chronically: new diagnosis, would explain many of symptoms -PTH 299 -is on alendronate for osteoporosis *Hypercalcemia: 2/2 above, resolved *?NINA on CKD IV vs at baseline CKD IV: *DM: *Parkinson's follows with Dr. Kelsey *?h/o CHF, h/o Aortic Valve replaced: follows with Dr. Eastman *Hypothyroid: tsh wnl *GERD *Depression *Osteoporosis *HLD: P: -IVF's finish -calcitonin unavailable, some initial response with IVF's, f/u calcium. renal fxn precluding further bisphos, started cinacalcet short course -cont ASA, started statin -MRI pending, if positive check echo -cont bp meds (decrease prn parameters), hold ACEI and f/u renal fxn, allow some BP elevation given ??TIA but also runs 160-180 at home, prn's -Records from PCP/cardio/pharmacy regarding BP meds -f/u with endocrinology outpt -[facility] -pt/ot -ppx: heparin/pepcid Medical - PN: Qual - VTE Deep Vein Thrombosis/Pulmonary Embolism Present on Admission: No
[2018-12-27] MEDS: LEVOTHYROXINE SODIUM 112 MCG TABLET PO SCH (08:03)
[2018-12-27] MEDS: PANTOPRAZOLE 40 MG TABLET PO SCH (08:03)
[2018-12-27] MEDS: 0.9 % SODIUM CHLORIDE 10 ML SYRINGE IV SCH ×3 (08:15→21:36)
[2018-12-27] MEDS: INSULIN LISPRO 1 UNIT/0.01 ML UNIT SQ SCH ×4 (08:15→21:34)
[2018-12-27] MEDS ORDERED: IPRATROPIUM/ALBUTEROL 3 ML AMPUL.NEB NEB PRN (08:39)
[2018-12-27] MEDS ORDERED: BISACODYL 10 MG SUPP.RECT PR PRN (08:39)
[2018-12-27] MEDS ORDERED: POLYETHYLENE GLYCOL 3350 17 GM PACKET PO PRN (08:39)
[2018-12-27] MEDS ORDERED: ACETAMINOPHEN 325 MG TABLET PO PRN (08:39)
[2018-12-27] MEDS ORDERED: ONDANSETRON 4 MG/2 ML VIAL IV PRN (08:39)
[2018-12-27] MEDS ORDERED: DEXTROSE 31 GM ORAL.SUSP PO PRN (08:39)
[2018-12-27] MEDS ORDERED: DEXTROSE 50% 50 ML VIAL IV PRN (08:39)
[2018-12-27] MEDS ORDERED: PROMETHAZINE 25 MG/ML VIAL IV PRN (08:39)
[2018-12-27] MEDS: hydrALAZINE 25 MG TABLET PO SCH ×2 (09:20→21:35)
[2018-12-27] MEDS: HEPARIN 5,000 UNIT/ML VIAL SQ SCH ×2 (09:21→21:36)
[2018-12-27] MEDS: ASPIRIN 81 MG TAB.CHEW PO SCH (09:21)
[2018-12-27] MEDS: DOCUSATE SODIUM 100 MG CAPSULE PO SCH ×2 (09:21→21:34)
[2018-12-27] MEDS: ISOSORBIDE MONONITRATE 30 MG TAB.XL.24H PO SCH (09:21)
[2018-12-27] MEDS: ESCITALOPRAM 10 MG TABLET PO SCH (09:22)
[2018-12-27] MEDS: CARBIDOPA/LEVODOPA CR 25/100 TABLET PO SCH ×3 (09:22→21:35)
[2018-12-27] MEDS: PRAMIPEXOLE 0.25 MG TABLET PO SCH ×2 (09:22→21:36)
[2018-12-27] MEDS: CINACALCET 30 MG TABLET PO SCH ×2 (09:22→21:35)
[2018-12-27] MEDS: METOPROLOL TARTRATE 25 MG TABLET PO SCH ×2 (09:22→21:34)
[2018-12-27] MEDS: hydrALAZINE 20 MG/ML VIAL IV PRN (19:06)
[2018-12-27] MEDS ORDERED: SENNOSIDES 1 TABLET PO PRN (21:00)
[2018-12-27] MEDS: ATORVASTATIN 20 MG TABLET PO SCH (21:35)
[2018-12-28] MEDS: hydrALAZINE 20 MG/ML VIAL IV PRN ×3 (04:54→23:58)
[2018-12-28] MEDS: 0.9 % SODIUM CHLORIDE 10 ML SYRINGE IV SCH ×3 (04:54→20:05)
[2018-12-28 06:26] LABS: ALT/SGPT < 5 U/l (0-40); Albumin 3.4 gm/dL (3.2-5.2); Albumin/Globulin Ratio 1.4 (1.0-2.3); Alkaline Phosphatase 94 U/L (39-117); Bilirubin,Direct < 0.2 mg/dL (0.0-0.3); Blood Urea Nitrogen 24 mg/dl (8-23); Gamma Glutamyl Transpeptidase 8 U/L (5-36); Uric Acid 8.4 mg/dL (2.5-8.0)
[2018-12-28 06:50] LABS: Basophils # (Auto) 0 K/mcL (0.0-0.3); Basophils % (Auto) 0.3 % (0.0-2.0); Eosinophils # (Auto) 0.5 K/mcL (0.0-0.7); Eosinophils % (Auto) 8.1 % (0.0-7.0); Granulocytes % (Auto) 63.7 % (38.0-78.0); Lymphocytes # (Auto) 1.4 K/mcL (1.5-4.8); Lymphocytes % (Auto) 22.1 % (15.5-49.0); Mean Cell Volume 86.6 fL (80.0-100.0); Mean Corpuscular HGB Conc 32.5 g/dL (31.0-36.0); Monocytes # (Auto) 0.4 K/mcL (0.1-0.9); Monocytes % (Auto) 5.8 % (1.0-12.0); Platelet Count 175 K/mcL (140-440); RBC 3.82 M/mcL (4.00-5.20); Red Cell Distribution Width 15.9 % (11.5-14.5)
[2018-12-28] MEDS: INSULIN LISPRO 1 UNIT/0.01 ML UNIT SQ SCH ×4 (06:59→20:04)
[2018-12-28] MEDS: PANTOPRAZOLE 40 MG TABLET PO SCH (07:01)
[2018-12-28] MEDS: LEVOTHYROXINE SODIUM 112 MCG TABLET PO SCH (07:01)
--- NOTE | 2018-12-28 07:02 | Magnetic Resonance Report ---
CLINICAL INFORMATION: Right facial droop. History of breast carcinoma and basal cell carcinoma and Parkinson's disease COMPARISON: Head CT from 07/23/2008 and 12/15/2018. TECHNIQUE:Sagittal T1 FLAIR, axial T1 FLAIR, T2 FLAIR propeller, T2 propeller, gradient, diffusion, ADC and coronal T2 weighted images were acquired. FINDINGS: The ventricles, sulci, fissures and cisterns are symmetrically enlarged compatible with moderate age-related atrophy - no extra-axial fluid collection or mass appreciated. Extensive chronic ischemic changes throughout the cerebral white matter with confluence in the periventricular region are typical for age. There is no intracranial hemorrhage, mass effect, restricted diffusion, edema or other acute finding. Scattered remote punctate lacunar infarcts in basal ganglia noted. Signal void in the intracerebral arteries, extra-axial cranial nerves, pituitary and orbits are all normal. A 3.1 x 2.5 cm lobulated mass fills the inferior left maxillary antrum. On both CT and MRI, the left maxillary sinus ayala are remodeled about the mass with small focal erosive changes in the inferior medial and lateral ayala. The remaining paranasal sinuses are clear IMPRESSION: 1. No evidence of hemorrhage, edema or other acute intracerebral abnormality. 2. Moderate atrophy and extensive chronic ischemic changes in the deep cerebral white matter with confluence in the deep paraventricular region - expected for age. A few remote lacunar infarcts in the basal ganglia noted as before 3. 3 cm mass in inferior left maxillary antrum. On both CT and MRI, the features are, largely, nonaggressive. Suspect mucous retention cyst or polyp. If clinically indicated, consider sinus CT in 8-12 weeks Interpreted and Authenticated by: Korey Rosen 12/28/18
[2018-12-28] MEDS ORDERED: FUROSEMIDE 20 MG TABLET PO SCH (09:00)
[2018-12-28] MEDS: ASPIRIN 81 MG TAB.CHEW PO SCH (09:44)
[2018-12-28] MEDS: DOCUSATE SODIUM 100 MG CAPSULE PO SCH ×2 (09:44→20:03)
[2018-12-28] MEDS: ESCITALOPRAM 10 MG TABLET PO SCH (09:44)
[2018-12-28] MEDS: METOPROLOL TARTRATE 25 MG TABLET PO SCH ×2 (09:44→20:04)
[2018-12-28] MEDS: ISOSORBIDE MONONITRATE 30 MG TAB.XL.24H PO SCH (09:44)
[2018-12-28] MEDS: FUROSEMIDE 20 MG TABLET PO SCH (09:44)
[2018-12-28] MEDS: HEPARIN 5,000 UNIT/ML VIAL SQ SCH ×2 (09:45→20:04)
[2018-12-28] MEDS: PRAMIPEXOLE 0.25 MG TABLET PO SCH ×2 (09:48→20:04)
[2018-12-28] MEDS: CARBIDOPA/LEVODOPA CR 25/100 TABLET PO SCH ×3 (09:52→20:04)
[2018-12-28] MEDS: hydrALAZINE 25 MG TABLET PO SCH ×2 (09:52→20:04)
--- NOTE | 2018-12-28 11:45 | Nephrology Consult Note ---
History of Present Illness - Reason for Consult Patient information: Note initiated : 12/28/18 at 11:43 am Patient: Judit Shankar 83 y/o F admitted on 12/25/18 for Upper back and jaw pain today, high blood pressure. Consult date: 12/28/18 chronic renal failure, accelerated hypertension Requesting physician: Carlton Adames - Chief Complaint High blood pressure - History of Present Illness Judit Shankar is an [id number] female with diabetes mellitus type 2, history of porcine aortic valve replacement, hypertension, chronic kidney disease stage 3, chronic anemia associated with chronic kidney disease and iron deficiency (TIBC 4% on 01/26/18), secondary hyperparathyroidism of renal origin, presented to ED for hypertension and admitted on 12/25/18. Review of Systems Constitutional: lethargy, weakness Nose, mouth and throat: no nasal congestion, no sore throat Cardiovascular: no chest pain, no palpatations Respiratory: no cough, no wheezing Gastrointestinal: no abdominal pain, no diarrhea, no nausea Genitourinary: no dysuria, no hematuria Musculoskeletal: no back pain, no joint swelling Integumentary: no rash, no wounds Neurological: no confusion, no focal weakness Psychiatric: no anxiety, no panic attacks Endocrine: no cold intolerance, no heat intolerance Hematologic/Lymphatic: no easy bleeding, no easy bruising Allergic/Immunologic: no tongue swelling, no uticaria Past History Past medical history: Medical History (Last Updated 12/25/18 @ 19:09 by Cj Vargas DO) 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) History of anemia due to chronic kidney disease (Chronic) History of basal cell carcinoma (Chronic) Renal stones (Chronic) Left carotid bruit (Chronic) Heart murmur, systolic (Chronic) Osteoarthrosis, generalized, involving multiple sites (Chronic) Claudication (Chronic) Unsteady gait (Chronic) Myalgia (Chronic) Spinal stenosis (Chronic) Osteoporosis (Chronic) Personal history of malignant neoplasm of breast (Chronic) CKD (chronic kidney disease), stage IV (Chronic) skilled nursing current use of bisphosphonates (Chronic) Long-term use of aspirin therapy (Chronic) Atypical chest pain (Chronic) Stroke (Chronic) Memory loss (Chronic) Pure hypercholesterolemia, unspecified (Chronic) Primary hyperparathyroidism (Chronic) Parkinson disease (Chronic) Hypothyroidism, iodine (Chronic) Headache (Chronic) ESR raised (Chronic) Hypertensive chronic kidney disease with stage 1 through stage 4 chronic kidney disease, or unspecified chronic kidney disease (Chronic) History of hysterectomy (Chronic) Adenocarcinoma, breast (Resolved) Past surgical history: Past Surgical History (Last Updated 12/25/18 @ 19:12 by Cj Vargas DO) History of modified radical mastectomy of right breast (Chronic) History of cataract extraction (Acute) History of hip replacement (Acute) History of tonsillectomy (Acute) History of aortic valve replacement (Chronic ~01/2009) History of cholecystectomy (Chronic) History of colonoscopy (Chronic 07/13/13) History of left breast biopsy (Chronic) Past family history: Family History (Last Updated 10/07/17 @ 12:20 by Jie Rodney) Mother Heart disease Past social history: Social History (Last Updated 10/07/17 @ 12:20 by Jie Rodney) No Social History Section defined Medications and Allergies Home Medications Medication Instructions Recorded Confirmed Type alendronate 70 mg tablet 70 mg PO SA 10/07/17 12/25/18 History aspirin 81 mg tablet,delayed 81 mg PO QDAY 10/07/17 12/25/18 History release coenzyme Q10 400 mg capsule 400 mg PO QDAY cap 10/07/17 12/25/18 History lisinopril 40 mg tablet 40 mg PO DAILY tab 10/07/17 12/25/18 History metoprolol tartrate 25 mg tablet 50 mg PO BID 10/07/17 12/25/18 History pantoprazole 40 mg tablet,delayed 40 mg PO QDAY 10/07/17 12/25/18 History release pramipexole 0.125 mg tablet 0.125 mg PO BID 10/07/17 12/25/18 History Escitalopram [Lexapro] 10 mg PO DAILY 01/26/18 12/25/18 History Accu-Chek 1 each FS ACHS strip 01/28/18 12/26/18 Rx Acetaminophen [Tylenol] 650 mg PO Q6HP PRN tablet 01/28/18 12/25/18 Rx metFORMIN [Glucophage] 500 mg PO BIDCC tablet 01/28/18 12/25/18 Rx Carbidopa/Levodopa [Carbidopa-Levo 2 each PO TID 06/16/18 12/25/18 History 25-100 mg Odt] Potassium Chloride [Klor-Con 20 meq PO DAILY 06/16/18 12/25/18 History Sprinkle] Ferrous Sulfate [Iron] 2,000 unit PO DAILY 07/26/18 12/25/18 History Furosemide [Lasix] 40 mg PO DAILY 07/26/18 12/25/18 History Levothyroxine Sodium [Synthroid] 112 mcg PO DAILY 07/26/18 12/25/18 History Sennosides/Docusate Sodium 2 each PO QPM 07/26/18 12/25/18 History [Senna-S Tablet] hydrALAZINE [Apresoline] 25 mg PO BID 07/26/18 12/25/18 History Isosorbide Mononitrate [Isosorbide 30 mg PO DAILY 12/25/18 12/25/18 History Mononitrate ER] Potassium 8 mg PO DAILY 12/26/18 12/26/18 History Allergies Allergy/AdvReac Type Severity Reaction Status Date / Time codeine Allergy Severe Rash Verified 12/25/18 17:35 Exam - Vital Signs Vital signs: Temp Pulse Resp BP Pulse Ox 97.6 F 59 L 18 177/71 95 12/28/18 08:01 12/28/18 08:01 12/28/18 04:05 12/28/18 08:08 12/28/18 08:01 - General Appearance General appearance: appears started age, fatigue EENT: mucous membranes moist Neck: supple Respiratory: clear Cardiology: edema (trace) Gastrointestinal: no tenderness Integumentary: warm and dry Neurologic: no focal deficit, alert and oriented x3 Musculoskeletal: no deformities Psychiatric: mood/affect appropriate, cooperative Results - Lab Results 12/28/18 04:33 12/28/18 04:33 Most recent lab results Calcium 10.0 mg/dl (8.6-10.4) 12/28/18 04:33 Phosphorus 3.0 mg/dL (2.7-4.5) 12/28/18 04:33 Magnesium 1.8 mg/dL (1.6-2.5) 12/28/18 04:33 Assessment and Plan (1) CKD (chronic kidney disease), stage IV Judit Shankar is an [id number] female with diabetes mellitus type 2, history of porcine aortic valve replacement, hypertension, chronic kidney disease stage 4, chronic anemia associated with chronic kidney disease and iron deficiency (TIBC 4% on 01/26/18), secondary hyperparathyroidism of renal origin, presented to ED for hypertension and admitted on 12/25/18. Chronic kidney disease stage 4, stable. Avoidance of NSAIDs recommended. Hypertension, not adequately controlled. Blood pressure target of less than 130/80 recommended. Localized edema associated with fluid overload, minimal. Current medications: Metoprolol tartrate 50 mg twice daily, Isosorbide mononitrate 30 mg daily, Hydralazine 25 mg twice daily and Furosemide 40 mg daily. Home medications: Nifedipine 60 mg twice daily, Lisinopril 40 mg daily, Isosorbide mononitrate 30 mg daily, Metoprolol tartrate 50 mg twice daily, F urosemide 40 mg daily, Potassium Chloride 20 mEq daily. Progress: Blood pressure: 170-185/100-105. Urine output: 1625 ml reported in the past 24 hours. Creatinine decreased from 1.8 to 1.7 in the past 24 hours. No significant fluid overload. Recommendations: ACEI/ARB + CCB + Thiazide diuretic is the first line therapy. I would resume Lisinopril at 20 mg daily, add Amlodipine 10 mg daily, continue Furosemide 40 mg daily and Metoprolol tartrate 50 mg twice daily. Isosorbide mononitrate 30 mg daily and Hydralazine 25 mg twice daily are not preferred. TIBC will be checked for possible IV iron requirement. She may not need out of town trip for endocrinology if hypercalcemia is not persistent. Status: Chronic Priority: Medium (2) Hypertensive urgency Please see above Status: Acute Priority: Medium
--- NOTE | 2018-12-28 12:09 | Internal Med Progress Note ---
Medical - PN: Subj Patient information: Note initiated : 12/28/18 at 12:03 pm Service Date, if different from initiated Date: [] Patient: Judit Shankar 83 y/o F admitted on 12/25/18 for Upper back and jaw pain today, high blood pressure. Chief Complaint: [] Interval history: Ms. Shankar is a 83 year old F resents to the ED after she developed jaw and back pain. She has had this pain in the past, half a dozen time over the last several months but she did not think much of it. Today it was more severe and lasted about 20 minutes, it was described as a dull ache. Thus her brought her in. She denies any chest pain or shortness of breath with that episode. Denies any associated headache dizziness or lightheadedness, no shortness of breath, she does have some shortness of breath with exertion which is normal for her but nothing acute currently. She was just sitting when the pain came on. In the ED she was found to be hypertensive in the systolic in the 200s. She states her systolic blood pressure runs in the 160s 170s at home on a regular basis. I see multiple blood pressure medications on her list including hydralazine lisinopril nifedipine metoprolol tartrate as well as Imdur and Lasix . Calcium was found to be elevated as well and. She has chronic hypercalcemia dating back for years. Seems she typically runs 11-12. She was not aware of this when I mentioned it. She takes alendronate. An old note from [facility] mentions hypercalcemia she was treated with pamidronate and calcitonin at that time. She does have breast cancer but there have been no recurrences or issues with that she recently saw Dr. Varma. She does complain of constipation and polyuria and she has had stomach aches/crampy pain over the past several months as well. 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 However per daughter is felt to be more significant today, last appearance of normal was last night when her daughter sa w her. So there was a concern for possible stroke, CT brain was done which was unremarkable, she has no other focal deficits. Her troponin and EKG were unremarkable. CT brain showed old lacunar infarct, chest x-ray unremarkable. 12/26 Given 1 dose of as needed hydralazine last night in ICU, With good response. No overnight events. No new complaints from the patient. No numbness or tingling or weakness. No headache fever chills or coughing or shortness of breath. 12/27 Slept well, feeling well. Did not need any as needed blood pressure medications last night. Overnight events. 12/28-patient continues to have erratic blood pressures. Off IV drips. Nephrology consulted for optimization of hypertension management. 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 Case discussed with Dr. Berrios nephrology. Antihypertensive medication optimize per nephrology. Continue telemetry monitoring. Possible discharge in 48 hours if adequate blood pressure control achieved - Constitutional Vitals: Vital Signs Temp Pulse Resp BP Pulse Ox 97.6 F 59 L 18 177/71 95 12/28/18 08:01 12/28/18 08:01 12/28/18 04:05 12/28/18 08:08 12/28/18 08:01 Period Temp Pulse Resp BP Sys/Harris Pulse Ox Last 24 Hr 97.6 F-99.1 F 59-67 18-20 125-206/56-80 94-98 Intake and Output 12/27/18 12/28/18 12/28/18 21:59 05:59 13:59 Intake Total 420 Output Total 475 225 600 Balance -55 -225 -600 Weight 202 lb Intake & Output: Intake & Output 12/27/18 12/28/18 12/28/18 21:59 05:59 13:59 Intake Total 420 Output Total 475 225 600 Balance -55 -225 -600 Weight 202 lb Intake: Oral 420 Output: Void Amount 475 225 600 # of times incontinent of urine 0 Other: Meal Dinner Percent of Meal Consumed 100% Feeding Ability Independent Urine Appearance Clear Clear Clear Urine Color Bright Yellow Dark Yellow Light Bhavya Urine Odor Normal Strong # Voids 1 # Bowel Movements 1 General appearance: no acute distress Exam: at bedside. Patient sitting on chair. Denies concerns No telemetry events No labored breathing No anxiety Medical - PN: Obj Da - Labs CBC & Chem 7: 12/28/18 04:33 12/28/18 04:33 Labs: Abnormal Lab Results 12/28/18 12/28/18 12/27/18 04:33 04:33 04:00 RBC 3.82 L Hgb 10.7 L Hct 33.0 L RDW 15.9 H Eos % (Auto) 8.1 H Lymph # (Auto) 1.4 L Eos # (Auto) BUN 24 H 25 H Creatinine 1.7 H 1.8 H Glucose Uric Acid 8.4 H Calcium Ionized Calcium Fidelia Total Protein 5.8 L Triglycerides 157 H Cholesterol LDL Cholesterol, Calc Non-HDL Cholesterol PTH Intact 12/26/18 12/26/18 12/25/18 03:50 03:50 21:50 RBC Hgb 11.8 L Hct RDW 16.2 H Eos % (Auto) 8.5 H Lymph # (Auto) Eos # (Auto) BUN 29 H Creatinine 1.9 H Glucose 109 H Uric Acid 9.4 H Calcium 11.6 H Ionized Calcium Fidelia Total Protein Triglycerides 204 H 212 H Cholesterol 206 H LDL Cholesterol, Calc 116 H Non-HDL Cholesterol 158 H PTH Intact 12/25/18 12/25/18 12/25/18 21:50 21:50 17:48 RBC Hgb Hct RDW Eos % (Auto) Lymph # (Auto) Eos # (Auto) BUN 27 H Creatinine 1.9 H Glucose 131 H Uric Acid Calcium 12.0 H Ionized Calcium Fidelia 1.56 H Total Protein Triglycerides Cholesterol LDL Cholesterol, Calc Non-HDL Cholesterol PTH Intact 299.7 H 12/25/18 17:48 RBC Hgb Hct RDW 16.5 H Eos % (Auto) 8.7 H Lymph # (Auto) Eos # (Auto) 0.8 H BUN Creatinine Glucose Uric Acid Calcium Ionized Calcium Fidelia Total Protein Triglycerides Cholesterol LDL Cholesterol, Calc Non-HDL Cholesterol PTH Intact Meds: Medications Acetaminophen (Tylenol) 650 mg PO Q4-6HP PRN PRN Reason: PAIN/FEVER > 101 Albuterol/Ipratropium (Duoneb) 3 ml NEB Q4HRT PRN PRN Reason: Bronchospasm Alendronate Sodium (Fosamax) 70 mg PO Sa@0730 [facility] Amlodipine Besylate (Norvasc) 10 mg PO DAILY [facility] Aspirin (Aspirin) 81 mg PO DAILY [facility] Last Admin: 12/28/18 09:44 Dose: 81 mg Documented by: Atorvastatin Calcium (Lipitor) 40 mg PO [facility] Last Admin: 12/27/18 21:35 Dose: 40 mg Documented by: Bisacodyl (Dulcolax) 10 mg WI Q2-3DAYS PRN PRN Reason: Constipation Carbidopa/Levodopa (Sinemet Cr 25/100) 2 tab PO TID [facility] Last Admin: 12/28/18 09:52 Dose: 2 tab Documented by: Dextrose (Dextrose 50%) 0 ml IV UD PRN PRN Reason: Hypoglycemia Diagnostic Test (Pha) (Accu-Chek) 1 each FS [facility] Last Admin: 12/28/18 11:49 Dose: 1 each Documented by: Docusate Sodium (Colace) 100 mg PO BID [facility] Last Admin: 12/28/18 09:44 Dose: 100 mg Documented by: Escitalopram Oxalate (Lexapro) 10 mg PO DAILY [facility] Last Admin: 12/28/18 09:44 Dose: 10 mg Documented by: Furosemide (Lasix) 40 mg PO DAILY [facility] Last Admin: 12/28/18 09:44 Dose: 40 mg Documented by: Glucose (Insta-Glucose) 15 gm PO PRN PRN PRN Reason: Hypoglycemia Heparin Sodium (Porcine) (Heparin) 5,000 unit SQ Q12 [facility] Last Admin: 12/28/18 09:45 Dose: 5,000 unit Documented by: Hydralazine HCl (Apresoline) 10 mg IV Q4-6HP PRN PRN Reason: Hypertension Last Admin: 12/28/18 04:54 Dose: 10 mg Documented by: Hydralazine HCl (Apresoline) 25 mg PO BID [facility] Last Admin: 12/28/18 09:52 Dose: 25 mg Documented by: Insulin Human Lispro (Humalog) 0 unit SQ [facility]; Protocol Last Admin: 12/28/18 11:49 Dose: Not Given Documented by: Isosorbide Mononitrate (Imdur) 30 mg PO DAILY [facility] Last Admin: 12/28/18 09:44 Dose: 30 mg Documented by: Labetalol HCl (Labetalol Hcl) 10 mg IV Q2HP PRN PRN Reason: Hypertension Levothyroxine Sodium (Synthroid) 112 mcg PO ACB [facility] Last Admin: 12/28/18 07:01 Dose: 112 mcg Documented by: Lisinopril (Zestril) 20 mg PO DAILY [facility] Metoprolol Tartrate (Lopressor) 50 mg PO BID [facility] Last Admin: 12/28/18 09:44 Dose: 50 mg Documented by: Ondansetron HCl (Zofran) 4 mg IV Q4-6HP PRN PRN Reason: Nausea And Vomiting Pantoprazole Sodium (Protonix) 40 mg PO QAMAC [facility] Last Admin: 12/28/18 07:01 Dose: 40 mg Documented by: Polyethylene Glycol (Miralax) 17 gm PO DAILYP PRN PRN Reason: Constipation Pramipexole Dihydrochloride (Mirapex) 0.125 mg PO BID [facility] Last Admin: 12/28/18 09:48 Dose: 0.125 mg Documented by: Promethazine HCl (Phenergan) 12.5 mg IV Q4-6HP PRN PRN Reason: Nausea And Vomiting Senna (Senokot) 1 tab PO HSP PRN PRN Reason: Constipation Sodium Chloride (Saline Flush) 10 ml IV Q8 [facility] Last Admin: 12/28/18 04:54 Dose: 10 ml Documented by: Medical - PN: A/P - Time Spent With Patient Total time spent is greater than 50% in coordination of care (as documented) at patient's floor/unit and/or counseling patient: 25 - 35 minutes (1) Hypertensive urgency Status: Acute Assessment and plan: * Hypertensive urgency-suboptimal blood pressure control at home. Currently on as needed labetalol/hydralazine along with home meds. Nephrology consulted for optimization. * History of TIA-symptoms resolved. Continue aspirin/statin * Primary hyperparathyroidism-on alendronate for osteoporosis. Calcium chronically between 11 and 12. Follows up with endocrinology at [place] * History of Parkinson's disease follows with Dr. Campos Kelsey neurology. Continue pramipexole/levodopa carbidopa * History of CHF/aortic valve-follows with Dr. Tucker * Hypothyroidism-continue thyroxine * History of DM type II-continue sliding scale insulin * GERD-on pantoprazole * Depression-continue Lexapro * Osteoporosis-on alendronate * Hyperlipidemia-on atorvastatin * Full code * Prophylaxis heparin * Plan * Nephrology consult * Pre-existing medical condition management as above * Rehab support * Discharge planning * Continue telemetry monitoring Current Visit: Yes Medical - PN: Qual - VTE Deep Vein Thrombosis/Pulmonary Embolism Present on Admission: No
[2018-12-28] MEDS ORDERED: LISINOPRIL 20 MG TABLET PO ONE (12:15)
[2018-12-28] MEDS ORDERED: amLODIPine 10 MG TABLET PO ONE (12:15)
[2018-12-28] MEDS: ATORVASTATIN 20 MG TABLET PO SCH (20:04)
[2018-12-28 20:30] LABS: Iron 44 mcg/dl (37-145); Transferrin % Saturation 14 % (15-50); Unsaturated Iron Binding 261 mcg/dL (112-346)
[2018-12-29] MEDS: 0.9 % SODIUM CHLORIDE 10 ML SYRINGE IV SCH ×3 (05:12→20:19)
[2018-12-29 05:29] LABS: Basophils # (Auto) 0 K/mcL (0.0-0.3); Basophils % (Auto) 0.3 % (0.0-2.0); Eosinophils # (Auto) 0.4 K/mcL (0.0-0.7); Eosinophils % (Auto) 6.7 % (0.0-7.0); Granulocytes % (Auto) 68.1 % (38.0-78.0); Lymphocytes # (Auto) 1.2 K/mcL (1.5-4.8); Lymphocytes % (Auto) 18.9 % (15.5-49.0); Mean Cell Volume 86.9 fL (80.0-100.0); Mean Corpuscular HGB Conc 32.4 g/dL (31.0-36.0); Monocytes # (Auto) 0.4 K/mcL (0.1-0.9); Platelet Count 174 K/mcL (140-440); Red Cell Distribution Width 16.3 % (11.5-14.5)
[2018-12-29 05:40] LABS: ALT/SGPT < 5 U/l (0-40); Albumin 3.7 gm/dL (3.2-5.2); Albumin/Globulin Ratio 1.6 (1.0-2.3); Alkaline Phosphatase 95 U/L (39-117); Bilirubin,Direct < 0.2 mg/dL (0.0-0.3); Blood Urea Nitrogen 26 mg/dl (8-23); Gamma Glutamyl Transpeptidase 9 U/L (5-36); Uric Acid 8.4 mg/dL (2.5-8.0)
--- NOTE | 2018-12-29 07:21 | Nephrology Progress Note ---
Subjective Patient information: Note initiated : 12/29/18 at 7:18 am Patient: Judit Shankar 83 y/o F admitted on 12/25/18 for Upper back and jaw pain today, high blood pressure. Chief Complaint: High blood pressure Principal diagnosis: Chronic kidney disease stage 4 with accelerated hypertension Pertinent ROS: Weakness Mild edema No shortness of breath No chest pain No abdominal pain Objective - Vital Signs Vital signs: Vital Signs Temp Pulse Pulse Resp BP BP BP 12/29/18 03:57 98.8 F 60 18 171/80 12/29/18 00:15 172/72 12/29/18 00:00 98.9 F 61 18 181/77 192/90 12/28/18 21:08 98.9 F 18 136/66 12/28/18 18:24 123/58 12/28/18 16:40 99.4 F H 16 208/93 12/28/18 12:00 98.6 F 18 195/83 12/28/18 08:08 177/71 12/28/18 08:01 97.6 F 59 L 177/71 Pulse Ox 12/29/18 03:57 96 12/29/18 00:15 12/29/18 00:00 96 12/28/18 21:08 96 12/28/18 18:24 12/28/18 16:40 96 12/28/18 12:00 95 12/28/18 08:08 12/28/18 08:01 95 Intake and Output 12/28/18 12/29/18 12/29/18 21:59 05:59 13:59 Intake Total 160 200 Output Total 100 650 200 Balance 60 -450 -200 Intake: Oral 160 200 Output: Void Amount 100 650 200 Other: Meal Nourishment/Supplement Percent of Meal Consumed 100% Feeding Ability Assist with Tray Set Up Urine Appearance Clear Clear Urine Color Straw Dark Bhavya Bright Yellow Urine Odor Normal Strong Weight 198 lb Intake & Output: Intake & Output 12/28/18 12/29/18 12/29/18 21:59 05:59 13:59 Intake Total 160 200 Output Total 100 650 200 Balance 60 -450 -200 Weight 198 lb Intake: Oral 160 200 Output: Void Amount 100 650 200 Other: Meal Nourishment/Supplement Percent of Meal Consumed 100% Feeding Ability Assist with Tray Set Up Urine Appearance Clear Clear Urine Color Straw Dark Bhavya Bright Yellow Urine Odor Normal Strong - General Appearance General appearance: appears started age, fatigue EENT: mucous membranes moist Neck: supple Respiratory: clear Cardiology: no edema Gastrointestinal: no tenderness Integumentary: warm and dry Neurologic: no focal deficit, alert and oriented x3 Musculoskeletal: no deformities Psychiatric: mood/affect appropriate, cooperative - Lab 12/29/18 04:23 12/29/18 04:23 Most recent lab results Calcium 10.0 mg/dl (8.6-10.4) 12/29/18 04:23 Phosphorus 3.1 mg/dL (2.7-4.5) 12/29/18 04:23 Magnesium 1.8 mg/dL (1.6-2.5) 12/29/18 04:23 Assessment and Plan (1) CKD (chronic kidney disease), stage IV Judit Shankar is an [id number] female with diabetes mellitus type 2, history of porcine aortic valve replacement, hypertension, chronic kidney disease stage 4, chronic anemia associated with chronic kidney disease and iron deficiency (TIBC 4% on 01/26/18), secondary hyperparathyroidism of renal origin, presented to ED for hypertension and admitted on 12/25/18. Chronic kidney disease stage 4, stable. Hypertension, not adequately controlled. Home medications: Nifedipine 60 mg tw ice daily, Lisinopril 40 mg daily, Isosorbide mononitrate 30 mg daily, Metoprolol tartrate 50 mg twice daily, Furosemide 40 mg daily, Potassium Chloride 20 mEq daily. Localized edema associated with fluid overload, minimal. Current medications: Lisinopril 20 mg daily, Amlodipine 10 mg daily, Furosemide 40 mg daily, Metoprolol tartrate 50 mg twice daily, Isosorbide mononitrate 30 mg daily, Hydralazine 25 mg twice daily. Progress: Blood pressure: 170/80. Urine output: 1350 ml reported in the past 24 hours. Creatinine 1.7, did not change in the past 24 hours. No significant fluid overload. Recommendations: Spironolactone 25 mg daily added. Follow up with [facility] in December with renal panel before the visit. Dr. Bautista will follow up tomorrow as needed. Status: Chronic Priority: Medium (2) Hypertensive urgency Please see above Status: Acute Priority: Medium
[2018-12-29] MEDS: PANTOPRAZOLE 40 MG TABLET PO SCH (08:15)
[2018-12-29] MEDS: LEVOTHYROXINE SODIUM 112 MCG TABLET PO SCH (08:15)
[2018-12-29] MEDS: ESCITALOPRAM 10 MG TABLET PO SCH (08:27)
[2018-12-29] MEDS: amLODIPine 10 MG TABLET PO SCH (08:27)
[2018-12-29] MEDS: CARBIDOPA/LEVODOPA CR 25/100 TABLET PO SCH ×3 (08:27→20:18)
[2018-12-29] MEDS: INSULIN LISPRO 1 UNIT/0.01 ML UNIT SQ SCH ×4 (08:28→20:19)
[2018-12-29] MEDS: ASPIRIN 81 MG TAB.CHEW PO SCH (08:28)
[2018-12-29] MEDS: DOCUSATE SODIUM 100 MG CAPSULE PO SCH ×2 (08:28→20:18)
[2018-12-29] MEDS: SPIRONOLACTONE 25 MG TABLET PO SCH (08:28)
[2018-12-29] MEDS: ISOSORBIDE MONONITRATE 30 MG TAB.XL.24H PO SCH (08:28)
[2018-12-29] MEDS ORDERED: LISINOPRIL 20 MG TABLET PO SCH (09:00)
[2018-12-29] MEDS: METOPROLOL TARTRATE 25 MG TABLET PO SCH ×2 (11:23→20:17)
[2018-12-29] MEDS: FUROSEMIDE 20 MG TABLET PO SCH (11:29)
[2018-12-29] MEDS: hydrALAZINE 25 MG TABLET PO SCH ×2 (11:30→20:18)
[2018-12-29] MEDS: HEPARIN 5,000 UNIT/ML VIAL SQ SCH ×2 (11:30→20:18)
[2018-12-29] MEDS: PRAMIPEXOLE 0.25 MG TABLET PO SCH ×2 (13:00→20:18)
[2018-12-29] MEDS ORDERED: LISINOPRIL 20 MG TABLET PO ONE (13:15)
--- NOTE | 2018-12-29 16:05 | Internal Med Progress Note ---
Medical - PN: Subj Patient information: Note initiated : 12/29/18 at 4:03 pm Service Date, if different from initiated Date: [] Patient: Judit Shankar 83 y/o F admitted on 12/25/18 for Upper back and jaw pain today, high blood pressure. Chief Complaint: [] Interval history: Ms. Shankar is a 83 year old F resents to the ED after she developed jaw and back pain. She has had this pain in the past, half a dozen time over the last several months but she did not think much of it. Today it was more severe and lasted about 20 minutes, it was described as a dull ache. Thus her brought her in. She denies any chest pain or shortness of breath with that episode. Denies any associated headache dizziness or lightheadedness, no shortness of breath, she does have some shortness of breath with exertion which is normal for her but nothing acute currently. She was just sitting when the pain came on. In the ED she was found to be hypertensive in the systolic in the 200s. She states her systolic blood pressure runs in the 160s 170s at home on a regular basis. I see multiple blood pressure medications on her list including hydralazine lisinopril nifedipine metoprolol tartrate as well as Imdur and Lasix. Calcium was found to be elevated as well and. She has chronic hypercalcemia dating back for years. Seems she typically runs 11-12. She was not aware of this when I mentioned it. She takes alendronate. An old note from [facility] mentions hypercalcemia she was treated with pamidronate and krzysztof citonin at that time. She does have breast cancer but there have been no recurrences or issues with that she recently saw Dr. Varma. She does complain of constipation and polyuria and she has had stomach aches/crampy pain over the past several months as well. 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 However per daughter is felt to be more significant today, last appearance of normal was last night when her daughter saw her. So there was a concern for possible stroke, CT brain was done which was unremarkable, she has no other focal deficits. Her troponin and EKG were unremarkable. CT brain showed old lacunar infarct, chest x-ray unremarkable. 12/26 Given 1 dose of as needed hydralazine last night in ICU, With good response. No overnight events. No new complaints from the patient. No numbness or tingling or weakness. No headache fever chills or coughing or shortness of breath. 12/27 Slept well, feeling well. Did not need any as needed blood pressure medications last night. Overnight events. 12/28-patient continues to have erratic blood pressures. Off IV drips. Nephrology consulted for optimization of hypertension management. Patient also follows up at [place] and would prefer a local erp consultant. Case discussed with Dr. Berrios nephrology. Antihypertensive medication optimize per nephrology. Continue telemetry monitoring. Possible discharge in 48 hours if adequate blood pressure control achieved 12/29-patient doing well. No overnight events. No concerns per staff. Denies fever chills nausea vomiting. Blood pressure variable however much improved since added antihypertensives per nephrology. Will likely discharge in 24-48 hours if blood pressure control is optimized - Constitutional Vitals: Vital Signs Temp Pulse Resp BP Pulse Ox 98.2 F 72 18 189/81 97 12/29/18 12:00 12/29/18 12:00 12/29/18 12:00 12/29/18 12:00 12/29/18 12:00 Period Temp Pulse Resp BP Sys/Harris Pulse Ox Last 24 Hr 98.2 F-99.4 F 60-72 16-18 123-208/58-93 96-97 Intake and Output 12/29/18 12/29/18 12/29/18 05:59 13:59 21:59 Intake Total 200 300 600 Output Total 650 550 Balance -450 -250 600 Intake & Output: Intake & Output 12/29/18 12/29/18 12/29/18 05:59 13:59 21:59 Intake Total 200 300 600 Output Total 650 550 Balance -450 -250 600 Intake: Oral 200 300 600 Output: Void Amount 650 550 Other: Meal Breakfast Lunch Percent of Meal Consumed 100% 50% Urine Appearance Clear Urine Color Dark Bhavya Bright Yellow Urine Odor Strong # Voids 1 General appearance: no acute distress Exam: Resting comfortably Alert oriented No labored breathing No anxiety nondistended abdomen No lymphedema Medical - PN: Obj Da - Labs CBC & Chem 7: 12/29/18 04:23 12/29/18 04:23 Labs: Abnormal Lab Results 12/29/18 12/29/18 12/28/18 04:23 04:23 04:33 RBC 3.90 L Hgb 11.0 L Hct 33.9 L RDW 16.3 H Eos % (Auto) Lymph # (Auto) 1.2 L BUN 26 H Creatinine 1.7 H Uric Acid 8.4 H Transferrin % Sat 14 L Total Protein Triglycerides 182 H 12/28/18 12/28/18 12/27/18 04:33 04:33 04:00 RBC 3.82 L Hgb 10.7 L Hct 33.0 L RDW 15.9 H Eos % (Auto) 8.1 H Lymph # (Auto) 1.4 L BUN 24 H 25 H Creatinine 1.7 H 1.8 H Uric Acid 8.4 H Transferrin % Sat Total Protein 5.8 L Triglycerides 157 H Meds: Medications Acetaminophen (Tylenol) 650 mg PO Q4-6HP PRN PRN Reason: PAIN/FEVER > 101 Albuterol/Ipratropium (Duoneb) 3 ml NEB Q4HRT PRN PRN Reason: Bronchospasm Alendronate Sodium (Fosamax) 70 mg PO Sa@0730 [facility] Amlodipine Besylate (Norvasc) 10 mg PO DAILY [facility] Last Admin: 12/29/18 08:27 Dose: 10 mg Documented by: Aspirin (Aspirin) 81 mg PO DAILY [facility] Last Admin: 12/29/18 08:28 Dose: 81 mg Documented by: Atorvastatin Calcium (Lipitor) 40 mg PO HS [facility] Last Admin: 12/28/18 20:04 Dose: 40 mg Documented by: Bisacodyl (Dulcolax) 10 mg OK Q2-3DAYS PRN PRN Reason: Constipation Carbidopa/Levodopa (Sinemet Cr 25/100) 2 tab PO TID [facility] Last Admin: 12/29/18 08:27 Dose: 2 tab Documented by: Dextrose (Dextrose 50%) 0 ml IV UD PRN PRN Reason: Hypoglycemia Diagnostic Test (Pha) (Accu-Chek) 1 each FS ACHS [facility] Last Admin: 12/29/18 07:40 Dose: 1 each Documented by: Docusate Sodium (Colace) 100 mg PO BID [facility] Last Admin: 12/29/18 08:28 Dose: 100 mg Documented by: Escitalopram Oxalate (Lexapro) 10 mg PO DAILY [facility] Last Admin: 12/29/18 08:27 Dose: 10 mg Documented by: Furosemide (Lasix) 40 mg PO DAILY [facility] Last Admin: 12/29/18 11:29 Dose: 40 mg Documented by: Glucose (Insta-Glucose) 15 gm PO PRN PRN PRN Reason: Hypoglycemia Heparin Sodium (Porcine) (Heparin) 5,000 unit SQ Q12 [facility] Last Admin: 12/29/18 11:30 Dose: 5,000 unit Documented by: Hydralazine HCl (Apresoline) 10 mg IV Q4-6HP PRN PRN Reason: Hypertension Last Admin: 12/28/18 23:58 Dose: 10 mg Documented by: Hydralazine HCl (Apresoline) 25 mg PO BID [facility] Last Admin: 12/29/18 11:30 Dose: 25 mg Documented by: Insulin Human Lispro (Humalog) 0 unit SQ ACHS [facility]; Protocol Last Admin: 12/29/18 08:28 Dose: Not Given Documented by: Isosorbide Mononitrate (Imdur) 30 mg PO DAILY [facility] Last Admin: 12/29/18 08:28 Dose: 30 mg Documented by: Labetalol HCl (Labetalol Hcl) 10 mg IV Q2HP PRN PRN Reason: Hypertension Levothyroxine Sodium (Synthroid) 112 mcg PO ACB [facility] Last Admin: 12/29/18 08:15 Dose: 112 mcg Documented by: Lisinopril (Zestril) 40 mg PO DAILY [facility] Metoprolol Tartrate (Lopressor) 50 mg PO BID [facility] Last Admin: 12/29/18 11:23 Dose: 50 mg Documented by: Ondansetron HCl (Zofran) 4 mg IV Q4-6HP PRN PRN Reason: Nausea And Vomiting Pantoprazole Sodium (Protonix) 40 mg PO QAMAC [facility] Last Admin: 12/29/18 08:15 Dose: 40 mg Documented by: Polyethylene Glycol (Miralax) 17 gm PO DAILYP PRN PRN Reason: Constipation Pramipexole Dihydrochloride (Mirapex) 0.125 mg PO BID [facility] Last Admin: 12/28/18 20:04 Dose: 0.125 mg Documented by: Promethazine HCl (Phenergan) 12.5 mg IV Q4-6HP PRN PRN Reason: Nausea And Vomiting Senna (Senokot) 1 tab PO HSP PRN PRN Reason: Constipation Last Admin: 12/29/18 08:15 Dose: 1 tab Documented by: Sodium Chloride (Saline Flush) 10 ml IV Q8 [facility] Last Admin: 12/29/18 05:12 Dose: 10 ml Documented by: Spironolactone (Aldactone) 25 mg PO DAILY [facility] Last Admin: 12/29/18 08:28 Dose: 25 mg Documented by: Medical - PN: A/P - Time Spent With Patient Total time spent is greater than 50% in coordination of care (as documented) at patient's floor/unit and/or counseling patient: 15 - 24 minutes (1) Hypertensive urgency Status: Acute Assessment and plan: * Hypertensive urgency-suboptimal blood pressure control at home. Much improved on antihypertensive medication optimization by nephrology. * History of TIA-symptoms resolved. Continue aspirin/statin * Primary hyperparathyroidism-on alendronate for osteoporosis. Calcium chronically between 11 and 12. Follows up with endocrinology at [place] * History of Parkinson's disease follows with Dr. Campos Kelsey neurology. Continue pramipexole/levodopa carbidopa * History of CHF/aortic valve-follows with Dr. Tucker * Hypothyroidism-continue thyroxine * History of DM type II-continue sliding scale insulin * GERD-on pantoprazole * Depression-continue Lexapro * Osteoporosis-on alendronate * Hyperlipidemia-on atorvastatin * Full code * Prophylaxis heparin * Plan * Continue hypertension management per nephrology * Pre-existing medical condition management as above * PT OT/nutrition support * Possible discharge in 24-48 hours * Continue telemetry monitoring Current Visit: Yes Medical - PN: Qual - VTE Deep Vein Thrombosis/Pulmonary Embolism Present on Admission: No
[2018-12-29] MEDS: ATORVASTATIN 20 MG TABLET PO SCH (20:18)
[2018-12-30] MEDS: hydrALAZINE 20 MG/ML VIAL IV PRN (04:06)
[2018-12-30] MEDS: 0.9 % SODIUM CHLORIDE 10 ML SYRINGE IV SCH ×3 (04:07→20:23)
[2018-12-30 05:37] LABS: Basophils # (Auto) 0 K/mcL (0.0-0.3); Basophils % (Auto) 0.5 % (0.0-2.0); Eosinophils # (Auto) 0.4 K/mcL (0.0-0.7); Eosinophils % (Auto) 6.8 % (0.0-7.0); Lymphocytes # (Auto) 1.6 K/mcL (1.5-4.8); Lymphocytes % (Auto) 24.4 % (15.5-49.0); Mean Cell Volume 86.9 fL (80.0-100.0); Mean Corpuscular HGB Conc 32.4 g/dL (31.0-36.0); Monocytes # (Auto) 0.5 K/mcL (0.1-0.9); Monocytes % (Auto) 8.3 % (1.0-12.0); Platelet Count 172 K/mcL (140-440); RBC 3.81 M/mcL (4.00-5.20); Red Cell Distribution Width 15.9 % (11.5-14.5)
[2018-12-30 06:21] LABS: ALT/SGPT < 5 U/l (0-40); Albumin 3.5 gm/dL (3.2-5.2); Albumin/Globulin Ratio 1.4 (1.0-2.3); Alkaline Phosphatase 91 U/L (39-117); Bilirubin,Direct < 0.2 mg/dL (0.0-0.3); Blood Urea Nitrogen 26 mg/dl (8-23); Gamma Glutamyl Transpeptidase 8 U/L (5-36); Uric Acid 8.1 mg/dL (2.5-8.0)
[2018-12-30] MEDS: INSULIN LISPRO 1 UNIT/0.01 ML UNIT SQ SCH ×4 (07:23→20:21)
[2018-12-30] MEDS: LISINOPRIL 20 MG TABLET PO SCH (07:24)
[2018-12-30] MEDS: amLODIPine 10 MG TABLET PO SCH (07:24)
[2018-12-30] MEDS: SPIRONOLACTONE 25 MG TABLET PO SCH (07:24)
[2018-12-30] MEDS: ISOSORBIDE MONONITRATE 30 MG TAB.XL.24H PO SCH (07:24)
[2018-12-30] MEDS: PANTOPRAZOLE 40 MG TABLET PO SCH (07:24)
[2018-12-30] MEDS: ESCITALOPRAM 10 MG TABLET PO SCH (07:24)
[2018-12-30] MEDS: LEVOTHYROXINE SODIUM 112 MCG TABLET PO SCH (07:24)
[2018-12-30] MEDS: METOPROLOL TARTRATE 25 MG TABLET PO SCH ×2 (07:24→20:22)
[2018-12-30] MEDS: DOCUSATE SODIUM 100 MG CAPSULE PO SCH ×2 (07:25→20:20)
[2018-12-30] MEDS: FUROSEMIDE 20 MG TABLET PO SCH (07:25)
[2018-12-30] MEDS: ASPIRIN 81 MG TAB.CHEW PO SCH (07:25)
[2018-12-30] MEDS: CARBIDOPA/LEVODOPA CR 25/100 TABLET PO SCH ×3 (08:38→20:23)
[2018-12-30] MEDS: hydrALAZINE 25 MG TABLET PO SCH (08:39)
[2018-12-30] MEDS: PRAMIPEXOLE 0.25 MG TABLET PO SCH ×2 (08:39→20:22)
[2018-12-30] MEDS: HEPARIN 5,000 UNIT/ML VIAL SQ SCH ×2 (08:45→20:20)
--- NOTE | 2018-12-30 15:25 | Internal Med Progress Note ---
Medical - PN: Subj Patient information: Note initiated : 12/30/18 at 3:25 pm Service Date, if different from initiated Date: [] Patient: Judit Shankar 83 y/o F admitted on 12/25/18 for Upper back and jaw pain today, high blood pressure. Chief Complaint: [] Interval history: Ms. Shankar is a 83 year old F resents to the ED after she developed jaw and back pain. She has had this pain in the past, half a dozen time over the last several months but she did not think much of it. Today it was more severe and lasted about 20 minutes, it was described as a dull ache. Thus her brought her in. She denies any chest pain or shortness of breath with that episode. Denies any associated headache dizziness or lightheadedness, no shortness of breath, she does have some shortness of breath with exertion which is normal for her but nothing acute currently. She was just sitting when the pain came on. In the ED she was found to be hypertensive in the systolic in the 200s. She states her systolic blood pressure runs in the 160s 170s at home on a regular basis. I see multiple blood pressure medications on her list including hydralazine lisinopril nifedipine metoprolol tartrate as well as Imdur and Lasix. Calcium was found to be elevated as well and. She has chronic hypercalcemia dating back for years. Seems she typically runs 11-12. She was not aware of this when I mentioned it. She takes alendronate. An old note from [facility] mentions hypercalcemia she was treated with pamidronate and krzysztof citonin at that time. She does have breast cancer but there have been no recurrences or issues with that she recently saw Dr. Varma. She does complain of constipation and polyuria and she has had stomach aches/crampy pain over the past several months as well. 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 However per daughter is felt to be more significant today, last appearance of normal was last night when her daughter saw her. So there was a concern for possible stroke, CT brain was done which was unremarkable, she has no other focal deficits. Her troponin and EKG were unremarkable. CT brain showed old lacunar infarct, chest x-ray unremarkable. 12/26 Given 1 dose of as needed hydralazine last night in ICU, With good response. No overnight events. No new complaints from the patient. No numbness or tingling or weakness. No headache fever chills or coughing or shortness of breath. 12/27 Slept well, feeling well. Did not need any as needed blood pressure medications last night. Overnight events. 12/28-patient continues to have erratic blood pressures. Off IV drips. Nephrology consulted for optimization of hypertension management. Patient also follows up at [place] and would prefer a local tax expert. Case discussed with Dr. Berrios nephrology. Antihypertensive medication optimize per nephrology. Continue telemetry monitoring. Possible discharge in 48 hours if adequate blood pressure control achieved 12/29-patient doing well. No overnight events. No concerns per staff. Denies fever chills nausea vomiting. Blood pressure variable however much improved since added antihypertensives per nephrology. Will likely discharge in 24-48 hours if blood pressure control is optimized 12/30-patient doing better however persistent orthostasis. Blood pressure is much improved with antihypertensive adjustment per nephrology. No telemetry events. - Constitutional Vitals: Vital Signs Temp Pulse Resp BP Pulse Ox 97.7 F 65 18 89/50 96 12/30/18 08:00 12/30/18 08:00 12/30/18 08:00 12/30/18 09:51 12/30/18 08:00 Period Temp Pulse Resp BP Sys/Harris Pulse Ox Last 24 Hr 97.7 F-98.4 F 59-65 18-18 89-191/50-81 95-97 Intake and Output 12/30/18 12/30/18 12/30/18 05:59 13:59 21:59 Intake Total 120 740 Output Total 700 500 Balance -580 240 Intake & Output: Intake & Output 12/30/18 12/30/18 12/30/18 05:59 13:59 21:59 Intake Total 120 740 Output Total 700 500 Balance -580 240 Intake: Oral 120 740 Output: Void Amount 700 500 Other: Meal Lunch Percent of Meal Consumed 75% Feeding Ability Assist with Tray Set Up Urine Appearance Clear Clear Urine Color Bright Yellow Bright Yellow Urine Odor Normal General appearance: no acute distress Exam: Alert oriented Nonlabored breathing Nondistended abdomen No anxiety Medical - PN: Obj Da - Labs CBC & Chem 7: 12/30/18 03:03 12/30/18 03:03 Labs: Abnormal Lab Results 12/30/18 12/30/18 12/29/18 03:03 03:03 04:23 RBC 3.81 L Hgb 10.7 L Hct 33.1 L RDW 15.9 H Eos % (Auto) Lymph # (Auto) BUN 26 H 26 H Creatinine 1.6 H 1.7 H Glucose 108 H Uric Acid 8.1 H 8.4 H Calcium 10.5 H Transferrin % Sat Total Protein Triglycerides 155 H 182 H 12/29/18 12/28/18 12/28/18 04:23 04:33 04:33 RBC 3.90 L Hgb 11.0 L Hct 33.9 L RDW 16.3 H Eos % (Auto) Lymph # (Auto) 1.2 L BUN 24 H Creatinine 1.7 H Glucose Uric Acid 8.4 H Calcium Transferrin % Sat 14 L Total Protein 5.8 L Triglycerides 157 H 12/28/18 04:33 RBC 3.82 L Hgb 10.7 L Hct 33.0 L RDW 15.9 H Eos % (Auto) 8.1 H Lymph # (Auto) 1.4 L BUN Creatinine Glucose Uric Acid Calcium Transferrin % Sat Total Protein Triglycerides Meds: Medications Acetaminophen (Tylenol) 650 mg PO Q4-6HP PRN PRN Reason: PAIN/FEVER > 101 Albuterol/Ipratropium (Duoneb) 3 ml NEB Q4HRT PRN PRN Reason: Bronchospasm Alendronate Sodium (Fosamax) 70 mg PO Sa@0730 [facility] Amlodipine Besylate (Norvasc) [address] [facility] Last Admin: 12/30/18 07:24 Dose: 10 mg Documented by: Aspirin (Aspirin) [address] [facility] Last Admin: 12/30/18 07:25 Dose: 81 mg Documented by: Atorvastatin Calcium (Lipitor) [address] [facility] Last Admin: 12/29/18 20:18 Dose: 40 mg Documented by: Bisacodyl (Dulcolax) 10 mg MS Q2-3DAYS PRN PRN Reason: Constipation Carbidopa/Levodopa (Sinemet Cr 25/100) [address] [facility] Last Admin: 12/30/18 14:55 Dose: 2 tab Documented by: Dextrose (Dextrose 50%) 0 ml IV UD PRN PRN Reason: Hypoglycemia Diagnostic Test (Pha) (Accu-Chek) [address] [facility] Last Admin: 12/30/18 11:59 Dose: 1 each Documented by: Docusate Sodium (Colace) [address] [facility] Last Admin: 12/30/18 07:25 Dose: 100 mg Documented by: Escitalopram Oxalate (Lexapro) [address] [facility] Last Admin: 12/30/18 07:24 Dose: 10 mg Documented by: Furosemide (Lasix) [address] [facility] Last Admin: 12/30/18 07:25 Dose: 40 mg Documented by: Glucose (Insta-Glucose) 15 gm PO PRN PRN PRN Reason: Hypoglycemia Heparin Sodium (Porcine) (Heparin) 5,[address] [facility] Last Admin: 12/30/18 08:45 Dose: 5,000 unit Documented by: Hydralazine HCl (Apresoline) 10 mg IV Q4-6HP PRN PRN Reason: Hypertension Last Admin: 12/30/18 04:06 Dose: 10 mg Documented by: Hydralazine HCl (Apresoline) [address] [facility] Last Admin: 12/30/18 08:39 Dose: Not Given Documented by: Insulin Human Lispro (Humalog) [address] [facility]; Protocol Last Admin: 12/30/18 11:59 Dose: Not Given Documented by: Isosorbide Mononitrate (Imdur) [address] [facility] Last Admin: 12/30/18 07:24 Dose: 30 mg Documented by: Labetalol HCl (Labetalol Hcl) 10 mg IV Q2HP PRN PRN Reason: Hypertension Levothyroxine Sodium (Synthroid) [address] [facility] Last Admin: 12/30/18 07:24 Dose: 112 mcg Documented by: Lisinopril (Zestril) [address] [facility] Last Admin: 12/30/18 07:24 Dose: 40 mg Documented by: Metoprolol Tartrate (Lopressor) [address] [facility] Last Admin: 12/30/18 07:24 Dose: 50 mg Documented by: Ondansetron HCl (Zofran) 4 mg IV Q4-6HP PRN PRN Reason: Nausea And Vomiting Pantoprazole Sodium (Protonix) [address] [facility] Last Admin: 12/30/18 07:24 Dose: 40 mg Documented by: Polyethylene Glycol (Miralax) 17 gm PO DAILYP PRN PRN Reason: Constipation Last Admin: 12/29/18 17:42 Dose: 17 gm Documented by: Pramipexole Dihydrochloride (Mirapex) 0.[address] [facility] Last Admin: 12/30/18 08:39 Dose: 0.125 mg Documented by: Promethazine HCl (Phenergan) 12.5 mg IV Q4-6HP PRN PRN Reason: Nausea And Vomiting Senna (Senokot) 1 tab PO HSP PRN PRN Reason: Constipation Last Admin: 12/29/18 08:15 Dose: 1 tab Documented by: Sodium Chloride (Saline Flush) [address] [facility] Last Admin: 12/30/18 14:55 Dose: 10 ml Documented by: Spironolactone (Aldactone) [address] [facility] Last Admin: 12/30/18 07:24 Dose: 25 mg Documented by: Medical - PN: A/P - Time Spent With Patient Total time spent is greater than 50% in coordination of care (as documented) at patient's floor/unit and/or counseling patient: 15 - 24 minutes (1) Hypertensive urgency Status: Acute Assessment and plan: * Hypertensive urgency-clinic resolved. Continue management per nephrology * History of TIA-symptoms resolved. Continue aspirin/statin * Primary hyperparathyroidism-on alendronate for osteoporosis. Calcium chronically between 11 and 12. Follows up with endocrinology at [place] * History of Parkinson's disease follows with Dr. Campos Kelsey neurology. Continue pramipexole/levodopa carbidopa * History of CHF/aortic valve-follows with Dr. Tucker * Hypothyroidism-continue thyroxine * History of DM type II-continue sliding scale insulin * GERD-on pantoprazole * Depression-continue Lexapro * Osteoporosis-on alendronate * Hyperlipidemia-on atorvastatin * Full code * Prophylaxis heparin Plan * Continue hypertension management per nephrology * Pre-existing medical condition management as above * PT OT/nutrition support * Renal ultrasound per nephrology * Continue telemetry monitoring Current Visit: Yes Medical - PN: Qual - VTE Deep Vein Thrombosis/Pulmonary Embolism Present on Admission: No
--- NOTE | 2018-12-30 16:50 | Nephrology Progress Note ---
Subjective Patient information: Note initiated : 12/30/18 at 4:44 pm Service Date, if different from initiated Date: [] Patient: Judit Shankar 83 y/o F admitted on 12/25/18 for Upper back and jaw pain today, high blood pressure. Chief Complaint: [] Principal diagnosis: Chronic kidney disease stage 4 with accelerated hypertension Interval history: Patient c/o feeling a little tired today She denies worsening SOB, CP no edema her BP has come down and she is noted to have orthostatic drop in her BP Pertinent ROS: ABOVE Objective - Vital Signs Vital signs: Vital Signs Temp Pulse Pulse Resp BP BP Pulse Ox 12/30/18 09:51 89/50 12/30/18 09:05 146/62 12/30/18 08:00 97.7 F 65 18 113/70 96 12/30/18 06:30 190/72 12/30/18 04:30 159/71 12/30/18 03:40 97.9 F 59 L 18 191/81 97 12/29/18 23:46 97.7 F 60 18 164/69 95 12/29/18 19:27 98.4 F 61 18 174/75 97 Intake and Output 12/30/18 12/30/18 12/30/18 05:59 13:59 21:59 Intake Total 120 740 Output Total 700 500 500 Balance -580 240 -500 Intake: Oral 120 740 Output: Void Amount 700 500 500 Other: Meal Lunch Percent of Meal Consumed 75% Feeding Ability Assist with Tray Set Up Urine Appearance Clear Clear Clear Urine Color Bright Yellow Bright Yellow Bright Yellow Urine Odor Normal Intake & Output: Intake & Output 12/30/18 12/30/18 12/30/18 05:59 13:59 21:59 Intake Total 120 740 Output Total 700 500 500 Balance -580 240 -500 Intake: Oral 120 740 Output: Void Amount 700 500 500 Other: Meal Lunch Percent of Meal Consumed 75% Feeding Ability Assist with Tray Set Up Urine Appearance Clear Clear Clear Urine Color Bright Yellow Bright Yellow Bright Yellow Urine Odor Normal - General Appearance General appearance: appears started age, frail EENT: mucous membranes moist Neck: no JVD Respiratory: clear Cardiology: no edema, regular rate, regular rhythm Gastrointestinal: no tenderness, no guarding Integumentary: warm and dry Neurologic: alert and oriented x3 Musculoskeletal: no erythema, no cyanosis Psychiatric: mood/affect appropriate - Lab 12/30/18 03:03 12/30/18 03:03 Most recent lab results Calcium 10.5 mg/dl (8.6-10.4) H 12/30/18 03:03 Phosphorus 3.0 mg/dL (2.7-4.5) 12/30/18 03:03 Magnesium 1.9 mg/dL (1.6-2.5) 12/30/18 03:03 Assessment and Plan (1) CKD (chronic kidney disease), stage IV Status: Chronic Priority: Medium (2) Uncontrolled hypertension Status: Acute - Narrative A/P Narrative: Patient with h./o chronically uncontrolled HTN BP is a little better today concern of orthostatic hypotension in the setting of use of multiple antihypertensives and h/o Parkinson's disease will hold hydralazine continue other medications monitor for another day to ensure BP stabilizes will follow and optimize * CKD stage IV: s.creatinine improved to 1.6, stable and back to baseline * renal US pending * will monitor * alendronate dose too high for her renal function and should be reduced * Patient should see endocrinology if family interested in pursuing aggressive medical intervention for possible primary hyperparathyroidism given PTH, calcium level on presentation * Anemia in the setting of iron deficiency and CKD start oral iron will follow
[2018-12-30] MEDS: ATORVASTATIN 20 MG TABLET PO SCH (20:22)
[2018-12-31] MEDS: 0.9 % SODIUM CHLORIDE 10 ML SYRINGE IV SCH ×3 (05:06→20:34)
--- NOTE | 2018-12-31 06:13 | Ultrasound Report ---
CLINICAL INFORMATION: CKDM uncontrolled HTN COMPARISON: None. FINDINGS: Both kidneys are normal in size position and configuration: The right is 10.5 x 4 cm and the left is 11.8 x 6 cm. Parenchymal echotexture is elevated compatible with bilateral medical renal disease. There are scattered cysts throughout both kidneys ranging up to 12 mm in the inferior left kidney. There are also 3-4 nonobstructing stones in calyces of both kidneys ranging up to 16 mm in the left kidney. There is no hydronephrosis suggest obstructing stone. The right renal pelvis is echogenic and poorly defined. Urinary bladder volume is 251 cc the 123 postvoid residual (49% (no focal bladder lesions. IMPRESSION: 1. Mildly hyperechoic kidneys compatible with medical renal disease. 2. Poor definition of the right renal pelvis with increased echogenicity. The possibility of transitional carcinoma should be excluded. Suggest CT IVP. If patient cannot tolerate iodinated contrast, then abdominal MRI would be an adequate substitute exam 3. A few nonobstructing stones in calyces of both kidneys ranging up to 16 mm 4. Bilateral renal cysts Interpreted and Authenticated by: Korey Rosen 12/31/18
[2018-12-31] MEDS: INSULIN LISPRO 1 UNIT/0.01 ML UNIT SQ SCH ×4 (07:45→20:33)
[2018-12-31] MEDS: PANTOPRAZOLE 40 MG TABLET PO SCH (08:06)
[2018-12-31] MEDS: LEVOTHYROXINE SODIUM 112 MCG TABLET PO SCH (08:06)
[2018-12-31] MEDS ORDERED: FERROUS GLUCONATE 324 MG TABLET PO SCH (09:00)
[2018-12-31] MEDS ORDERED: IPRATROPIUM/ALBUTEROL 3 ML AMPUL.NEB NEB PRN (09:36)
[2018-12-31] MEDS ORDERED: hydrALAZINE 20 MG/ML VIAL IV PRN (09:36)
[2018-12-31] MEDS ORDERED: ACETAMINOPHEN 325 MG TABLET PO PRN (09:36)
[2018-12-31] MEDS ORDERED: DEXTROSE 50% 50 ML VIAL IV PRN (09:36)
[2018-12-31] MEDS ORDERED: POLYETHYLENE GLYCOL 3350 17 GM PACKET PO PRN (09:36)
[2018-12-31] MEDS ORDERED: LABETALOL HCL 20 MG/4 ML SYRINGE IV PRN (09:36)
[2018-12-31] MEDS ORDERED: DEXTROSE 31 GM ORAL.SUSP PO PRN (09:36)
[2018-12-31] MEDS ORDERED: ONDANSETRON 4 MG/2 ML VIAL IV PRN (09:36)
[2018-12-31] MEDS ORDERED: PROMETHAZINE 25 MG/ML VIAL IV PRN (09:36)
[2018-12-31] MEDS ORDERED: BISACODYL 10 MG SUPP.RECT PR PRN (09:36)
[2018-12-31] MEDS: HEPARIN 5,000 UNIT/ML VIAL SQ SCH ×2 (09:37→20:33)
[2018-12-31] MEDS: ESCITALOPRAM 10 MG TABLET PO SCH (09:41)
[2018-12-31] MEDS: amLODIPine 10 MG TABLET PO SCH (09:42)
[2018-12-31] MEDS: DOCUSATE SODIUM 100 MG CAPSULE PO SCH ×2 (09:43→20:32)
[2018-12-31] MEDS: ISOSORBIDE MONONITRATE 30 MG TAB.XL.24H PO SCH (09:43)
[2018-12-31] MEDS: PRAMIPEXOLE 0.25 MG TABLET PO SCH ×2 (09:44→20:32)
[2018-12-31] MEDS: ASPIRIN 81 MG TAB.CHEW PO SCH (09:48)
[2018-12-31] MEDS: LISINOPRIL 20 MG TABLET PO SCH (09:49)
[2018-12-31] MEDS: METOPROLOL TARTRATE 25 MG TABLET PO SCH ×2 (09:49→20:32)
[2018-12-31] MEDS: CARBIDOPA/LEVODOPA CR 25/100 TABLET PO SCH ×3 (09:50→20:31)
[2018-12-31] MEDS: FUROSEMIDE 20 MG TABLET PO SCH (09:51)
[2018-12-31] MEDS: SPIRONOLACTONE 25 MG TABLET PO SCH (09:52)
--- NOTE | 2018-12-31 10:39 | Internal Med Progress Note ---
Medical - PN: Subj Patient information: Note initiated : 12/31/18 at 10:36 am Service Date, if different from initiated Date: [] Patient: Judit Shankar 83 y/o F admitted on 12/25/18 for Upper back and jaw pain today, high blood pressure. Chief Complaint: [] Interval history: Ms. Shankar is a 83 year old F resents to the ED after she developed jaw and back pain. She has had this pain in the past, half a dozen time over the last several months but she did not think much of it. Today it was more severe and lasted about 20 minutes, it was described as a dull ache. Thus her brought her in. She denies any chest pain or shortness of breath with that episode. Denies any associated headache dizziness or lightheadedness, no shortness of breath, she does have some shortness of breath with exertion which is normal for her but nothing acute currently. She was just sitting when the pain came on. In the ED she was found to be hypertensive in the systolic in the 200s. She states her systolic blood pressure runs in the 160s 170s at home on a regular basis. I see multiple blood pressure medications on her list including hydralazine lisinopril nifedipine metoprolol tartrate as well as Imdur and Lasix . Calcium was found to be elevated as well and. She has chronic hypercalcemia dating back for years. Seems she typically runs 11-12. She was not aware of this when I mentioned it. She takes alendronate. An old note from [facility] mentions hypercalcemia she was treated with pamidronate and calcitonin at that time. She does have breast cancer but there have been no recurrences or issues with that she recently saw Dr. Varma. She does complain of constipation and polyuria and she has had stomach aches/crampy pain over the past several months as well. 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 However per daughter is felt to be more significant today, last appearance of normal was last night when her daughter sa w her. So there was a concern for possible stroke, CT brain was done which was unremarkable, she has no other focal deficits. Her troponin and EKG were unremarkable. CT brain showed old lacunar infarct, chest x-ray unremarkable. 12/26 Given 1 dose of as needed hydralazine last night in ICU, With good response. No overnight events. No new complaints from the patient. No numbness or tingling or weakness. No headache fever chills or coughing or shortness of breath. 12/27 Slept well, feeling well. Did not need any as needed blood pressure medications last night. Overnight events. 12/28-patient continues to have erratic blood pressures. Off IV drips. Nephrology consulted for optimization of hypertension management. Patient also follows up at [place] and would prefer a local supervisor liquid yeast. Case discussed with Dr. Berrios nephrology. Antihypertensive medication optimize per nephrology. Continue telemetry monitoring. Possible discharge in 48 hours if adequate blood pressure control achieved 12/29-patient doing well. No overnight events. No concerns per staff. Denies fever chills nausea vomiting. Blood pressure variable however much improved since added antihypertensives per nephrology. Will likely discharge in 24-48 hours if blood pressure control is optimized 12/30-patient doing better however persistent orthostasis. Blood pressure is much improved with antihypertensive adjustment per nephrology. No telemetry events. 12/31-patient doing well. No overnight events. Renal ultrasound shows pelvic mass possibility of transitional cell carcinoma. Nephrology on board. Await family discussion for further plan of care. Persistent orthostasis but improved systolics. Hypertension management optimization ongoing per nephrology - Constitutional Vitals: Vital Signs Temp Pulse Resp BP Pulse Ox 97.3 F 57 L 18 162/80 96 12/31/18 07:00 12/31/18 07:45 12/31/18 07:45 12/31/18 07:56 12/31/18 07:45 Period Temp Pulse Resp BP Sys/Harris Pulse Ox Last 24 Hr 97.3 F-98.3 F 57-65 16-18 136-204/65-92 93-96 Intake and Output 12/30/18 12/31/18 12/31/18 21:59 05:59 13:59 Intake Total 240 350 Output Total 800 150 Balance -560 350 -150 Weight 196 lb Intake & Output: Intake & Output 12/30/18 12/31/18 12/31/18 21:59 05:59 13:59 Intake Total 240 350 Output Total 800 150 Balance -560 350 -150 Weight 196 lb Intake: Oral 240 350 Output: Void Amount 800 150 Other: Meal Dinner Percent of Meal Consumed 100% Feeding Ability Assist with Tray Set Up Urine Appearance Clear Urine Color Bright Yellow Urine Odor Strong # Voids 1 1 General appearance: cooperative, no acute distress Exam: Alert oriented No labored breathing no anxiety Medical - PN: Obj Da - Labs CBC & Chem 7: 12/30/18 03:03 12/30/18 03:03 Labs: Abnormal Lab Results 12/30/18 12/30/18 12/29/18 03:03 03:03 04:23 RBC 3.81 L Hgb 10.7 L Hct 33.1 L RDW 15.9 H Lymph # (Auto) BUN 26 H 26 H Creatinine 1.6 H 1.7 H Glucose 108 H Uric Acid 8.1 H 8.4 H Calcium 10.5 H Transferrin % Sat Triglycerides 155 H 182 H 12/29/18 12/28/18 04:23 04:33 RBC 3.90 L Hgb 11.0 L Hct 33.9 L RDW 16.3 H Lymph # (Auto) 1.2 L BUN Creatinine Glucose Uric Acid Calcium Transferrin % Sat 14 L Triglycerides Meds: Medications Acetaminophen (Tylenol) 650 mg PO Q4-6HP PRN PRN Reason: PAIN/FEVER > 101 Albuterol/Ipratropium (Duoneb) 3 ml NEB Q4HRT PRN PRN Reason: Bronchospasm Alendronate Sodium (Fosamax) 35 mg PO Sa@0730 COUNTS INCLUDE 234 BEDS AT THE [facility] Amlodipine Besylate (Norvasc) 10 mg PO DAILY COUNTS INCLUDE 234 BEDS AT THE [facility] Aspirin (Aspirin) 81 mg PO DAILY CHRIS Atorvastatin Calcium (Lipitor) 40 mg PO HS CHRIS Bisacodyl (Dulcolax) [address] Q2-3DAYS PRN PRN Reason: Constipation Carbidopa/Levodopa (Sinemet Cr 25/100) 2 tab PO TID CHRIS Dextrose (Dextrose 50%) 0 ml IV UD PRN PRN Reason: Hypoglycemia Diagnostic Test (Pha) (Accu-Chek) 1 each FS ACHS CHRIS Docusate Sodium (Colace) 100 mg PO BID CHRIS Escitalopram Oxalate (Lexapro) 10 mg PO DAILY CHRIS Ferrous Gluconate (Fergon) 324 mg PO DAILY CHRIS Furosemide (Lasix) 40 mg PO DAILY CHRIS Glucose (Insta-Glucose) 15 gm PO PRN PRN PRN Reason: Hypoglycemia Heparin Sodium (Porcine) (Heparin) 5,000 unit SQ Q12 CHRIS Hydralazine HCl (Apresoline) 10 mg IV Q4-6HP PRN PRN Reason: Hypertension Insulin Human Lispro (Humalog) 0 unit SQ ACHS CHRIS; Protocol Isosorbide Mononitrate (Imdur) 30 mg PO DAILY COUNTS INCLUDE 234 BEDS AT THE [facility] Labetalol HCl (Labetalol Hcl) 10 mg IV Q2HP PRN PRN Reason: Hypertension Levothyroxine Sodium (Synthroid) 112 mcg PO ACB COUNTS INCLUDE 234 BEDS AT THE [facility] Lisinopril (Zestril) 40 mg PO DAILY COUNTS INCLUDE 234 BEDS AT THE [facility] Metoprolol Tartrate (Lopressor) 50 mg PO BID CHRIS Ondansetron HCl (Zofran) 4 mg IV Q4-6HP PRN PRN Reason: Nausea And Vomiting Pantoprazole Sodium (Protonix) 40 mg PO QAMAC CHRIS Polyethylene Glycol (Miralax) 17 gm PO DAILYP PRN PRN Reason: Constipation Pramipexole Dihydrochloride (Mirapex) 0.125 mg PO BID COUNTS INCLUDE 234 BEDS AT THE [facility] Promethazine HCl (Phenergan) 12.5 mg IV Q4-6HP PRN PRN Reason: Nausea And Vomiting Senna (Senokot) 1 tab PO HSP PRN PRN Reason: Constipation Sodium Chloride (Saline Flush) 10 ml IV Q8 COUNTS INCLUDE 234 BEDS AT THE [facility] Spironolactone (Aldactone) 25 mg PO DAILY COUNTS INCLUDE 234 BEDS AT THE [facility] Medical - PN: A/P - Time Spent With Patient Total time spent is greater than 50% in coordination of care (as documented) at patient's floor/unit and/or counseling patient: 15 - 24 minutes (1) Hypertensive urgency Status: Acute Assessment and plan: * Suboptimally controlled hypertension-much improved with management per nephrology. Blood pressure fluctuations with orthostasis in the setting of Parkinson's * Hypertensive urgency- resolved * History of TIA-symptoms resolved. Continue aspirin/statin * Primary hyperparathyroidism-on alendronate for osteoporosis. Calcium chronically between 11 and 12. Follows up with endocrinology at [place] * History of Parkinson's disease follows with Dr. Campos Kelsey neurology. Continue pramipexole/levodopa carbidopa * History of CHF/aortic valve-follows with Dr. Tucker * Hypothyroidism-continue thyroxine * History of DM type II-continue sliding scale insulin * GERD-on pantoprazole * Depression-continue Lexapro * Osteoporosis-on alendronate * Hyperlipidemia-on atorvastatin * Full code * Prophylaxis heparin Plan * Family discussions today for goals of care in light of mass lesion noted on renal ultrasound * HTN management per nephrology * Continue PT OT/nutrition support * Pre-existing medical condition management as above * DC telemetry * Anticipate discharge in 24 hours. Further plan of care based on family conference Current Visit: Yes Medical - PN: Qual - VTE Deep Vein Thrombosis/Pulmonary Embolism Present on Admission: No
[2018-12-31 12:41] LABS: Appearance,Urine CLEAR; Bacteria,Urine 0 /hpf (0); Bilirubin,Urine NEG (NEG); Color,Urine YELLOW; Glucose,Urine (UA) NEGATIVE (NEG); Leukocyte Esterase,Urine NEG /uL (NEG); Mucus,Urine FEW /hpf (0); Protein,Urine 30 mg/dL (NEG); Specific Gravity,Urine 1.015 (1.000-1.035); Urine Blood NEG mg/dL (<0.03); Urine RBC 5 /hpf (0-1); Urine Squamous Epithelial Cell 5 /hpf (0-4); Urine WBC 8 /hpf (0-4); Urobilinogen,Urine NEG (NEG)
[2018-12-31] MEDS ORDERED: hydrALAZINE 10 MG TABLET PO ONE (13:27)
--- NOTE | 2018-12-31 14:35 | Nephrology Progress Note ---
Subjective Patient information: Note initiated : 12/31/18 at 2:33 pm Service Date, if different from initiated Date: [] Patient: Judit Shankar 83 y/o F admitted on 12/25/18 for Upper back and jaw pain today, high blood pressure. Chief Complaint: [] Principal diagnosis: Chronic kidney disease stage 4 with accelerated hypertension Interval history: Patient's hydralazine held yesterday BP again elevated today She denies any symptoms, no SOB, CP NO EDEMA denies headaches/blurry vision ongoing OT/PT Renal US shows non obstructing stones and in the pelvis suspicious lesion, radiologist wants to r/o transitional cell cancer Pertinent ROS: as above Objective - Vital Signs Vital signs: Vital Signs Temp Pulse Pulse Pulse Resp BP BP 12/31/18 13:44 168/86 12/31/18 11:51 97.8 F 86 16 198/82 12/31/18 10:29 15 12/31/18 07:56 162/80 12/31/18 07:45 57 L 18 12/31/18 07:00 97.3 F 64 64 64 16 204/92 12/31/18 06:36 57 L 12/31/18 03:00 97.7 F 65 18 158/74 12/30/18 23:00 98 F 63 16 146/68 12/30/18 20:00 63 18 12/30/18 19:30 98.3 F 65 18 136/65 12/30/18 17:13 138/65 12/30/18 16:00 98.0 F 65 18 167/82 Pulse Ox 12/31/18 13:44 12/31/18 11:51 95 12/31/18 10:29 12/31/18 07:56 12/31/18 07:45 96 12/31/18 07:00 12/31/18 06:36 12/31/18 03:00 96 12/30/18 23:00 93 12/30/18 20:00 96 12/30/18 19:30 96 12/30/18 17:13 12/30/18 16:00 96 Intake and Output 12/31/18 12/31/18 12/31/18 05:59 13:59 21:59 Intake Total 350 240 Output Total 150 Balance 350 90 Intake: Oral 350 240 Output: Void Amount 150 Other: Meal Lunch Percent of Meal Consumed 100% Feeding Ability Independent Urine Appearance Clear Urine Color Straw Urine Odor Normal # Voids 1 1 Weight 196 lb Patient Weight 01/01/19 05:59 Weight 196 lb Intake & Output: Intake & Output 12/31/18 12/31/18 12/31/18 05:59 13:59 21:59 Intake Total 350 240 Output Total 150 Balance 350 90 Weight 196 lb Intake: Oral 350 240 Output: Void Amount 150 Other: Meal Lunch Percent of Meal Consumed 100% Feeding Ability Independent Urine Appearance Clear Urine Color Straw Urine Odor Normal # Voids 1 1 - General Appearance General appearance: appears started age, frail EENT: mucous membranes moist Neck: no JVD Respiratory: clear Cardiology: no edema, normal S1, normal S2 Gastrointestinal: no tenderness, no guarding Integumentary: warm and dry Neurologic: alert and oriented x3 Musculoskeletal: no erythema Psychiatric: mood/affect appropriate - Lab 12/30/18 03:03 12/30/18 03:03 Most recent lab results Calcium 10.5 mg/dl (8.6-10.4) H 12/30/18 03:03 Phosphorus 3.0 mg/dL (2.7-4.5) 12/30/18 03:03 Magnesium 1.9 mg/dL (1.6-2.5) 12/30/18 03:03 Assessment and Plan (1) CKD (chronic kidney disease), stage IV Status: Chronic Priority: Medium (2) Uncontrolled hypertension Status: Acute (3) Anemia Status: Acute (4) Primary hyperparathyroidism Status: Chronic - Narrative A/P Narrative: Patient with h./o chronically uncontrolled HTN BP elevated again will resume hydralazine but at lower dose 10mg bid as she seems to have good response renal US does not show asymmetrical kidneys concern of orthostatic hypotension in the setting of use of multiple antih ypertensives and h/o Parkinson's disease discussed with the patient and family, orthostatic hypotension, risk of fall if she goes too quickly from supine to standing position, basic pre cautions discu ssed at length * CKD stage IV: s.creatinine improved to 1.6, stable and back to baseline, recheck tomorrow prior to discharge * renal US with medical renal disease, non obstructing stones ? from hype rparathyroidism, urology referral as outpt * will monitor * alendronate dose too high for her renal function and reduced, discussed with patient and daughter * primary hyperparathyroidism: patient has seen lead miner in the past and will need to obtain records, will do that as outpt * Anemia in the setting of iron deficiency and CKD, on iron supplements, chronic, stable ct oral iron Discussed renal US findings and other medical issues including CKD, possible primary hyperparathyroidism, anemia, uncontrolled HTN and orthostatic hypotension as length with pt, her and her daughter Patient does want MRI abdomen done to know if she indeed has cancer, she will decide if she wants further management based on the findings will follow along IF BP stable may discharge home tomorrow
[2018-12-31] MEDS: hydrALAZINE 25 MG TABLET PO SCH (20:32)
[2018-12-31] MEDS ORDERED: ATORVASTATIN 20 MG TABLET PO SCH (21:00)
[2018-12-31] MEDS ORDERED: SENNOSIDES 1 TABLET PO PRN (21:00)
[2019-01-01 06:09] LABS: Basophils # (Auto) 0.1 K/mcL (0.0-0.3); Basophils % (Auto) 0.8 % (0.0-2.0); Eosinophils # (Auto) 0.5 K/mcL (0.0-0.7); Eosinophils % (Auto) 7.6 % (0.0-7.0); Granulocytes % (Auto) 59.6 % (38.0-78.0); Lymphocytes # (Auto) 1.6 K/mcL (1.5-4.8); Lymphocytes % (Auto) 24.4 % (15.5-49.0); Mean Cell Volume 87.8 fL (80.0-100.0); Mean Corpuscular HGB Conc 32.4 g/dL (31.0-36.0); Monocytes # (Auto) 0.5 K/mcL (0.1-0.9); Monocytes % (Auto) 7.6 % (1.0-12.0); Platelet Count 179 K/mcL (140-440); RBC 3.85 M/mcL (4.00-5.20); Red Cell Distribution Width 16.3 % (11.5-14.5)
[2019-01-01] MEDS: 0.9 % SODIUM CHLORIDE 10 ML SYRINGE IV SCH ×2 (06:11→13:34)
[2019-01-01 06:21] LABS: ALT/SGPT 5 U/l (0-40); Albumin 3.6 gm/dL (3.2-5.2); Albumin/Globulin Ratio 1.4 (1.0-2.3); Alkaline Phosphatase 91 U/L (39-117); Bilirubin,Direct 0.2 mg/dL (0.0-0.3); Blood Urea Nitrogen 28 mg/dl (8-23); Gamma Glutamyl Transpeptidase 9 U/L (5-36); Uric Acid 8.7 mg/dL (2.5-8.0)
[2019-01-01] MEDS: INSULIN LISPRO 1 UNIT/0.01 ML UNIT SQ SCH ×3 (07:29→17:34)
[2019-01-01] MEDS ORDERED: ALENDRONATE 35 MG TABLET PO SCH (07:30)
[2019-01-01] MEDS ORDERED: PANTOPRAZOLE 40 MG TABLET PO SCH (07:30)
[2019-01-01] MEDS ORDERED: ALENDRONATE SODIUM 70 MG TABLET PO SCH ×3 (07:30)
[2019-01-01] MEDS ORDERED: LEVOTHYROXINE SODIUM 112 MCG TABLET PO SCH (07:30)
[2019-01-01] MEDS ORDERED: FERROUS GLUCONATE 324 MG TABLET PO SCH (09:00)
[2019-01-01] MEDS ORDERED: amLODIPine 10 MG TABLET PO SCH (09:00)
[2019-01-01] MEDS ORDERED: ISOSORBIDE MONONITRATE 30 MG TAB.XL.24H PO SCH (09:00)
[2019-01-01] MEDS ORDERED: ESCITALOPRAM 10 MG TABLET PO SCH (09:00)
[2019-01-01] MEDS ORDERED: SPIRONOLACTONE 25 MG TABLET PO SCH (09:00)
[2019-01-01] MEDS ORDERED: FUROSEMIDE 20 MG TABLET PO SCH (09:00)
[2019-01-01] MEDS ORDERED: ASPIRIN 81 MG TAB.CHEW PO SCH (09:00)
[2019-01-01] MEDS ORDERED: LISINOPRIL 20 MG TABLET PO SCH (09:00)
[2019-01-01] MEDS: DOCUSATE SODIUM 100 MG CAPSULE PO SCH (09:31)
[2019-01-01] MEDS: METOPROLOL TARTRATE 25 MG TABLET PO SCH (09:31)
[2019-01-01] MEDS: CARBIDOPA/LEVODOPA CR 25/100 TABLET PO SCH ×2 (09:32→16:21)
[2019-01-01] MEDS: PRAMIPEXOLE 0.25 MG TABLET PO SCH (09:32)
[2019-01-01] MEDS: HEPARIN 5,000 UNIT/ML VIAL SQ SCH (09:35)
[2019-01-01] MEDS: hydrALAZINE 25 MG TABLET PO SCH (11:09)
[2019-01-01] MEDS ORDERED: LABETALOL 5 MG/ML ML IV PRN (11:45)
--- NOTE | 2019-01-01 14:56 | Magnetic Resonance Report ---
CLINICAL HISTORY: Poor right renal pelvis definition on recent ultrasound which could represent transitional cell carcinoma. TECHNIQUE: Axial diffusion, phase-in phase out, lava pre and dynamic post gadolinium, SSFSE, T2, and coronal SSFSE and FSPGR coronal pre and postcontrast images were acquired of the upper abdomen COMPARISON: Renal ultrasound 12/30/2018 FINDINGS: The right kidney is moderately atrophic - 7.5 cm x 3 cm. Left kidney is normal size: 10 x 6 cm. There is moderate atrophy of the right renal cortex and medullary region with excessive renal sinus fat which accounts for the ultrasound finding of poor upper collecting system definition. The renal pelvis and calyces are normal bilaterally: there is no evidence of transitional cell carcinoma or hydronephrosis. Scattered simple cysts in both kidneys ranging up to 15 mm the superior pole of the right kidney. No solid lesions. 8 mm nonobstructing stone superior calyx left kidney and a 3 mm nonobstructing stone mid calyx left kidney appreciated. No definite right renal stones noted. The liver is normal in size configuration and signal intensity. Gallbladder is surgically absent. The intrahepatic and extrahepatic bile ducts are normal - CBD is 6 mm. The pancreas, both adrenal glands, spleen and aorta are normal. Celiac, SMA, ENRRIQUE and both renal arteries signal void is normal compatible with wide patency. There is no free air, free fluid or adenopathy. The visualized small/large bowel and stomach are normal. Moderate hiatal hernia is noted. IMPRESSION: 1. Moderate right renal atrophy resulting in excessive renal sinus fat due to involution of the surrounding renal parenchyma. This would account for the ultrasound finding. There is no evidence of transitional cell carcinoma. 2. Nonobstructing stones in in the left kidney: 8 mm superior calyx and 3 mm mid calyx. No right-sided renal stones appreciated 3. Scattered simple cysts in both kidneys ranging up to 8 mm the right kidney 4. Moderate hiatal hernia Interpreted and Authenticated by: Korey Rosen 01/01/19
--- NOTE | 2019-01-01 15:25 | Discharge Summary ---
Medical - DS: Prov Patient information: Note initiated : 01/01/19 at 3:16 pm Service Date, if different from initiated Date: [] Patient: Judit Shankar 83 y/o F admitted on 12/25/18 for Upper back and jaw pain today, high blood pressure. Chief Complaint: [] Date of admission: 12/25/18 22:55 Discharge date: 01/01/19 Primary care physician: Demetria Mckeon Consults: 12/25/18 Consult to Physician [CONS] Stat Comment: Consulting Provider: Chino Rosario Reason For Exam: Physician to Consult 12/28/18 10:16 Consult to Physician [CONS] Routine Comment: Consulting Provider: Emma Berrios Reason For Exam: Physician to Consult Discharging clinician: Klever Garcia Medical - DS: Meds - Discharge Medications Prescriptions: amLODIPine [Norvasc] 10 mg PO DAILY #30 tab Lisinopril [Zestril] 40 mg PO DAILY #60 tab Spironolactone [Aldactone] 25 mg PO DAILY 30 Days tab Active and Home Medications: Home Medications alendronate 70 mg tablet 70 mg PO SA 10/07/17 [History Confirmed 12/25/18 Last Taken 12/18/18] aspirin 81 mg tablet,delayed release 81 mg PO QDAY 10/07/17 [History Confirmed 12/25/18 Last Taken 12/24/18] coenzyme Q10 400 mg capsule 400 mg PO QDAY cap 10/07/17 [History Confirmed 12/25/18 Last Taken 12/25/18] lisinopril 40 mg tablet 40 mg PO DAILY tab 10/07/17 [History Confirmed 12/25/18 Last Taken 12/24/18] metoprolol tartrate 25 mg tablet 50 mg PO BID 10/07/17 [History Confirmed 12/25/18 Last Taken 12/25/18] pantoprazole 40 mg tablet,delayed release 40 mg PO QDAY 10/07/17 [History Confirmed 12/25/18 Last Taken 12/25/18] pramipexole 0.125 mg tablet 0.125 mg PO BID 10/07/17 [History Confirmed 12/25/18 Last Taken 12/25/18] Escitalopram [Lexapro] 10 mg PO DAILY 01/26/18 [History Confirmed 12/25/18 Last Taken 12/25/18] Accu-Chek 1 each FS ACHS strip 01/28/18 [Rx Confirmed 12/26/18 Last Taken Unknown] Acetaminophen [Tylenol] 650 mg PO Q6HP PRN tablet 01/28/18 [Rx Confirmed 12/25/18 Last Taken Unknown] metFORMIN [Glucophage] 500 mg PO BIDCC tablet 01/28/18 [Rx Confirmed 12/25/18 Last Taken 12/25/18] Carbidopa/Levodopa [Carbidopa-Levo 25-100 mg Odt] 2 each PO TID 06/16/18 [History Confirmed 12/25/18 Last Taken 12/25/18 20:42] Potassium Chloride [Klor-Con Sprinkle] 20 meq PO DAILY 06/16/18 [History Confirmed 12/25/18 Last Taken 12/25/18] Ferrous Sulfate [Iron] 2,000 unit PO DAILY 07/26/18 [History Confirmed 12/25/18 Last Taken 12/25/18] Furosemide [Lasix] 40 mg PO DAILY 07/26/18 [History Confirmed 12/25/18 Last Taken 12/25/18] Levothyroxine Sodium [Synthroid] 112 mcg PO DAILY 07/26/18 [History Confirmed 12/25/18 Last Taken 12/25/18] Sennosides/Docusate Sodium [Senna-S Tablet] 2 each PO QPM 07/26/18 [History Confirmed 12/25/18 Last Taken 12/25/18] hydrALAZINE [Apresoline] 25 mg PO BID 07/26/18 [History Confirmed 12/25/18 Last Taken 12/25/18] Isosorbide Mononitrate [Isosorbide Mononitrate ER] 30 mg PO DAILY 12/25/18 [History Confirmed 12/25/18 Last Taken 12/24/18] Potassium 8 mg PO DAILY 12/26/18 [History Confirmed 12/26/18 Last Taken Unknown] Medical - DS: Hosp Hospital course: Ms. Shankar is a 83 year old F resents to the ED after she developed jaw and back pain. She has had this pain in the past, half a dozen time over the last several months but she did not think much of it. Today it was more severe and lasted about 20 minutes, it was described as a dull ache. Thus her brought her in. She denies any chest pain or shortness of breath with that episode. Denies any associated headache dizziness or lightheadedness, no shortness of breath, she does have some shortness of breath with exertion which is normal for her but nothing acute currently. She was just sitting when the pain came on. In the ED she was found to be hypertensive in the systolic in the 200s. She states her systolic blood pressure runs in the 160s 170s at home on a regular basis. I see multiple blood pressure medications on her list including hydralazine lisinopril nifedipine metoprolol tartrate as well as Imdur and Lasix. Calcium was found to be elevated as well and. She has chronic hypercalcemia dating back for years. Seems she typically runs 11-12. She was not aware of this when I mentioned it. She takes alendronate. An old note from [facility] mentions hypercalcemia she was treated with pamidronate and calcitonin at that time. She does have breast cancer but there have been no recurrences or issues with that she recently saw Dr. Varma. She does complain of constipation and polyuria and she has had stomach aches/crampy pain over the past several months as well. 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 However per daughter is felt to be more significant today, last appearance of normal was last night when her daughter saw her. So there was a concern for possible stroke, CT brain was done which was unremarkable, she has no other focal deficits. Her troponin and EKG were unremarkable. CT brain showed old lacunar infarct, chest x-ray unremarkable. 12/26 Given 1 dose of as needed hydralazine last night in ICU, With good response. No overnight events. No new complaints from the patient. No numbness or tingling or weakness. No headache fever chills or coughing or shortness of breath. 12/27 Slept well, feeling well. Did not need any as needed blood pressure medications last night. Overnight events. 12/28-patient continues to have erratic blood pressures. Off IV drips. Nephrology consulted for optimization of hypertension management. Patient also follows up at [facility] and would prefer a local quality assurance/r&d lab technician. Case discussed with Dr. Berrios nephrology. Antihypertensive medication optimize per nephrology. Continue telemetry monitoring. Possible discharge in 48 hours if adequate blood pressure control achieved 12/29-patient doing well. No overnight events. No concerns per staff. Denies f ever chills nausea vomiting. Blood pressure variable however much improved since added antihypertensives per nephrology. Will likely discharge in 24-48 hours if blood pressure control is optimized 12/30-patient doing better however persistent orthostasis. Blood pressure is much improved with antihypertensive adjustment per nephrology. No telemetry events. 12/31-patient doing well. No overnight events. Renal ultrasound shows pelvic mass possibility of transitional cell carcinoma. Nephrology on board. Await family discussion for further plan of care. Persistent orthostasis but improved systolics. Hypertension management optimization ongoing per nephrology 01/01 Pt seen examined, doing well, stable blood pressure, no new complaints or concerns, will d/c home with home physical therapy Home medications adjusted MR abdomen negative for any maligancy of renal system. BP medications at discahrge Amlodipine 10mg daily, lisinopril 40mg daily, isosorbide mononitride 30mg daily metoprolol tartrate 50mg bid Spironolactone 25mg daily Hydralazine 25mg bid Furosemide 40mg daily Stopped potassium supplements. Discharge diagnosis: Hypertensive urgency - Time Spent with Patient Total time spent providing and/or coordinating discharge services: Greater than 30 minutes Medical - DS: Exam - Constitutional Vitals: Vital Signs Temp Pulse Pulse Resp BP BP Pulse Ox 01/01/19 11:15 97.3 F 59 L 18 159/77 95 01/01/19 09:30 121/64 01/01/19 07:00 98.2 F 18 192/79 94 01/01/19 03:00 98.3 F 66 16 154/79 97 12/31/18 23:20 97.4 F 60 60 18 162/79 95 12/31/18 20:44 97.1 F 62 16 143/71 95 12/31/18 15:42 97.2 F 18 141/73 97 Intake and Output 01/01/19 01/01/19 01/01/19 05:59 13:59 21:59 Intake Total 250 Output Total 300 350 Balance -50 -350 Intake: Oral 250 Output: Void Amount 300 350 Other: Urine Color Bright Yellow Urine Odor Normal # Voids 1 1 Additional comments: Constitutional; Afebrile, cooperative, alert, not in distress. Respiratory system: Air Entry equal on both sides, No crackles or wheezing, no rhonchi. CVS- Rate rhythm regular, S1,S2 heard, no gallop, no rub. Abdomen- Soft nontender abdomen, no organomegaly, no tenderness, no guarding or rigidity, MERCHANDISING LEAD- AOOx3, moving all extremities, no gross focal deficit noted. Medical - DS: Data Labs on day of discharge: Labs from last 24 hours 01/01/19 01/01/19 04:32 04:32 WBC 6.6 RBC 3.85 L Hgb 11.0 L Hct 33.8 L MCV 87.8 MCH 28.5 MCHC 32.4 RDW 16.3 H Plt Count 179 MPV 8.9 Gran % 59.6 Lymph % (Auto) 24.4 [place] % (Auto) 7.6 Eos % (Auto) 7.6 H Baso % (Auto) 0.8 Gran # 3.9 Lymph # (Auto) 1.6 [place] # (Auto) 0.5 Eos # (Auto) 0.5 Baso # (Auto) 0.1 Sodium 143 Potassium 4.0 Chloride 106 Carbon Dioxide 26 Anion Gap 11.0 BUN 28 H Creatinine 1.7 H GFR Calculation 28 Glucose 116 H Uric Acid 8.7 H Calcium 10.4 Phosphorus 2.9 Magnesium 1.9 Total Bilirubin 0.2 Direct Bilirubin 0.2 GGT 9 AST 10 ALT 5 Alkaline Phosphatase 91 Lactate Dehydrogenase 172 Total Protein 6.1 Albumin 3.6 Globulin 2.5 Albumin/Globulin Ratio 1.4 Triglycerides 141 Medical - DS: A/P - Patient/Caregiver Discharge Instructions Activity: as per physical therapy Diet: Low Sodium (2gm) Additional Instructions: You were admitted to the hospital for uncontrolled blood pressure You are being discharged on the following blood pressure medications You should be taking the following blood pressure medications at discharge Amlodipine 10mg daily, lisinopril 40mg daily, isosorbide mononitrate 30mg daily metoprolol tartrate 50mg bid Spironolactone 25mg daily Hydralazine 25mg bid Furosemide 40mg daily Stopped potassium supplements. Please stop nifedipine. I have made no other changes to your chronic home medication list, please take them as prescribed by your doctor Please follow up with Dr Bautista in 1 week in the nephrology clinic Go to the ER if worsening symptoms, fever, chest pain or any other acute concern. Follow up with PCP in 2 weeks - Follow up Plan Follow up with: Demetria Mckeon MD [Primary Care Provider] - 01/05/19 12:30 pm Elaina Joy ARNP [Physician] - 01/13/19 2:40 pm (Please check in at 2:20pm.) Henna Bautista MD [Physician] - Disposition: Home Health Service Prognosis: Fair Rehab Potential: Fair I certify that the patient requires SNF services: No Overall status at discharge: patient is progressing back to baseline Medical - DS: Qual - VTE Deep Vein Thrombosis/Pulmonary Embolism Present on Admission: No
== END 2019-01-01 16:40 | disposition home health service (06) | DRG 305 ==
LOC: ED 17:34 → ICU 22:55 → MEDSUR 12-30 20:56
PROVIDERS: ADMIT Internal Medicine; ATTEND Internal Medicine